=== PATIENT | female | born 1945 | race Caucasian/White ===

== ENCOUNTER 2021-12-17 15:12 | Outpatient (CLI) | payer MEDICARE, OTHER, SELFPAY ==
[2021-12-17 20:16] LABS: Blood Urea Nitrogen* 45 mg/dL (7-30); Carbon Dioxide* 23 mmol/L (20-32); Chloride* 105 mmol/L (96-114); Creatinine* 1.3 mg/dL (0.5-1.5); Estimated Glomerular Filt Rate 42.62; Glucose* 156 mg/dL (60-115); Potassium* 4.8 mmol/L (3.6-5.1); Sodium* 140 mmol/L (135-149)
[2021-12-17 20:17] LABS: Alanine Aminotransferase* 20 U/L (4-35); Albumin* 3.6 g/dL (3.3-5.0); Alkaline Phosphatase* 82 U/L (40-150); Aspartate Amino Transferase* 27 U/L (12-35); Bilirubin Total* 0.3 mg/dL (0.1-1.5); Calcium* 8.8 mg/dL (8.4-10.6); Lipase* 104 U/L (23-300); Total Protein* 6.4 g/dL (6.0-8.3)
[2021-12-18 19:12] LABS: Thyroid Stimulating Hormone* 0.165 uIU/mL (0.270-4.20)
== END 2021-12-17 15:13 | disposition home or self-care (01) ==
PROVIDERS: PCP Emergency Medicine; Visit Provider Emergency Medicine
DX: R10.9 Unspecified abdominal pain (principal); I12.9 Hypertensive chronic kidney disease with stage 1 through stage 4 chronic kidney disease, or unspecified chronic kidney disease; E11.22 Type 2 diabetes mellitus with diabetic chronic kidney disease; N18.9 Chronic kidney disease, unspecified; Z79.4 Long term (current) use of insulin; I25.10 Atherosclerotic heart disease of native coronary artery without angina pectoris; D64.9 Anemia, unspecified; E78.5 Hyperlipidemia, unspecified; E03.9 Hypothyroidism, unspecified
CPT/HCPCS: 80053; 83690; 84443

== ENCOUNTER 2022-01-15 10:43 | Outpatient (CLI) | payer MEDICARE, OTHER, SELFPAY ==
--- OUTSIDE RECORDS SUMMARY | 2022-01-15 10:46 | XMS_ITS ---
:1945 Author Organization [facility] Address [address], [place] [address] Care Team Providers Name Role Phone DURAN HDEZ Unavailable Unavailable PROBLEMS Type Condition ICD9-CM Code NKP61-YX Code Onset Condition SNO MED Code Dates Status Problem History of Z85.528 Active 014975067 kidney cancer ALLERGIES No Known Allergies ENCOUNTERS Encounter Location Date Diagnosis [address] Apr, [address] [facility] [id number] [address] Feb, [address] [facility] [place] [id number] [address] Feb, [place] [address] [facility] quadrant of left breast [id number] N63.21 ; Family history of breast cancer Z80.3 ; At high risk for breast cancer Z91.89 an d History of kidne y cancer Z85.[address] Feb, [address] [facility] [id number] [address] Jan, Abno rmal finding on [address] [place], [place] breast im aging R92.[id number] Sep, [address] [facility] [place] [id number] [address] Apr, Mass of left axilla [address] [place], [place] R22.32 ; Family history [id number] of breast cancer Z80.3 and At high risk for breast cancer Z9 1.89 [facility] [address] Apr, [address] [place], [place] [id number] [facility] [address] [place] [address] Mar, [address] screening Z12.31 [address] [place], [place] [id number] [facility] [address] Apr, [place] [address] [place], [place] quadrant of left breast [id number] N63.21 ; At high risk for breast cance r Z91.89 ; Family history of breast cancer Z8 0.3 and Dense breast tis eliecer on mammogram R92.2 [facility] [address] Sep, Abno rmal finding on [address] [place], [place] breast im aging R92.8 [id number] [facility] [address] Sep, Enco unter for preventive [address] [place], [place] care Z00. 00 [id number] [facility] [address] Sep, [address] [place], [place] [id number] [facility] [address] [place] [address] Jan, [facility] [address] screening Z12.31 [address] [place], [place] [id number] [facility] [address] [place], [place] [address] Jan, Abno rmal finding on [address] [place], [place] breast im aging R92.8 and [id number] Mass of upper ou ter quadrant of left breast N63.21 [facility] [address] Jan, Abno rmal finding on [address] [place], [place] breast im aging R92.8 [id number] [facility] [address] Jul, [address] screening Z12.31 [address] [place], [place] and Breas t mass, left [id number] N63.20 [facility] [address] Jul, Enco unter for preventive [address] [place], [place] care Z00. 00 [place] [id number] upper outer quad rant of left breast N63. 21 [facility] [address] Jul, [address] [place] [id number] [facility] [address] Jun[address] cancer screening [address] [place] Z12.31 [id number] [place] [address] Apr, [place] [address] [place] [address] Apr, [place] [address] [facility] [address] [place] [address] AVE Feb, [address] [place] [id number] [facility] [address] [place] [address] AVE Jul, [address] [facility] [place] [id number] [facility] [address] [place] [address] AVE Jun, [address] [place] [phone] [facility] [address] [place], [place] [address]AY AVE Jun, [address] [place] [phone] [facility] [address] [place] [address] AVE May, [address] [facility] [place] [id number] [facility] [address] [place] [address] AVE Apr, [address] [place] [id number] [facility] [address] [place] [address] AVE Apr, [address] [facility] [place] [phone] [place] [address] Apr, [place] [address] IMMUNIZATIONS Vaccine Route Administration Date Status Influenza (Whole) Unknown Apr 25, 2014 Administered PNEUMOCOCCAL IMMUNIZATION Unknown Apr 25, 2014 Admini stered SOCIAL HISTORY Qualifiers Date Never Smoker REASON FOR REFERRAL FUNCTIONAL STATUS PLAN OF CARE Activity Details Future Test MM 3D MAMM BILAT DIAG W CAD 20210717 Future Test MM 3D MAMM BILAT SCREENING W CAD 20210402 Pending Test US BREAST LTD TARGET AREA UN ILAT Pending Test US Extremity Non Vascular Li mited Pending Test MM DIGITAL BILATERAL DIAGNOS TIC MAMMOGRAM Pending Test US BREAST LTD TARGET AREA UN ILAT Pending Test MM CAD DIGITAL UNILATERAL DI AGNOSTIC MAMMOGRAM VITAL SIGNS Heart Rate 91 /min 2017-08-03 Heart Rate 84 /min 2016-07-22 Heart Rate 85 /min 2015-05-07 Heart Rate 89 /min 2014-04-25 Heart Rate 93 /min 2013-04-11 Weight 207 lbs 2018-09-27 Weight 207 lbs 2017-08-03 Weight 210 lbs 2016-07-22 Weight 210 lbs 2015-05-07 Weight 215 lbs 2014-04-25 Weight 214 lbs 2013-04-11 Height 66 in 2020-04-23 Height 66 in 2019-04-11 Height 66 in 2018-09-27 Height 66 in 2017-08-03 Height 67 in 2016-07-22 Height 67 in 2015-05-07 Height 67 in 2014-04-25 Height 67 in 2013-04-11 BMI 33.41 kg/m2 2018-09-27 BMI 33.41 kg/m2 2017-08-03 BMI 32.89 kg/m2 2016-07-22 BMI 32.89 kg/m2 2015-05-07 BMI 33.67 kg/m2 2014-04-25 BMI 33.59 kg/m2 2013-04-11 Blood pressure systolic 125 mm Hg 2017-08-03 Blood pressure diastolic 61 mm Hg 2017-08-03 MEDICATIONS Medication Instructions Dosage Frequency Start End Date Duration Stat us Date Levoxyl 150 MCG Oral Daily TAKE 1 24h Apr, 0 Activ e TABLET 2013 DAILY. Verapamil HCl Active Omeprazole 40 MG Oral Daily TAKE 1 24h 19 Apr, 0 Acti ve CAPSULE 2013 DAILY. HumaLOG KwikPen USE Feb, 0 Active 100 UNIT/ML DIRECTED. 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 Cytology Report 2021-02-07 REPORT Non-TOLL BRIDGE ATTENDANT Cytology Report 2020-04-23 REPORT MM 3D MAMM BILAT DIAG W CAD 2019-04-11 MM DIGITAL BILATERAL SCREENING MAMMOGRAM 2019-04 -23 MM DIGITAL UNILATERAL DIAGNOSTIC MAMMOGRAM -28 MM DIGITAL BILATERAL SCREENING MAMMOGRAM 2017-07 -27 MM DIGITAL UNILATERAL DIAGNOSTIC MAMMOGRAM -22 MM DIGITAL BILATERAL SCREENING MAMMOGRAM 2016-07 -15 MM DIGITAL BILATERAL SCREENING MAMM 2015-05-07 MM MAMMOGRAPHY UNILATERAL 2 VIEWS OR MORE 2013-06 1-19 MM DIGITAL BILATERAL SCREENING MAMM 2014-04-25 MM DIGITAL BILATERAL SCREENING MAMM 2013-04-11 REASON FOR VISIT 2 mo f/u, patient moved, Genetic testing results, giulia dx mm @ 8:30, Update [employer] Demographics, Mammogram order, 6 mo f/u left axilla, cancel appt, yr giulia screening (mm@10:30), Update [employer] Demographics, mammogram order, 6 m follow up mm x/d @ 2:10, wants genetic testing done, 6 m follow up mm x/d @ 1250, Mammogram order, yr giulia mammo x/d (mm @ 12:30), Update [employer] Demographics, yr giulia mammo x/d (mm @12:30), Mammogram Order, 6m lt mm@2:10, 6 m lt mammo x/d (mm @ 1:10), mammogram Order, Mammogram Order, yr giulia mammo x/d 2:30, Update [employer] Demographics, yr giulia mammo x/d 2:30, Mammo order, [facility], [facility], [facility] Insurance Providers [facility] Health Member Patient Patient Patient Patient Patient Subscriber Subscriber Subscriber Group Insurance Plan Plan Plan Plan ID Relationship Address Phone Name Date of ID Name Date of No Type Insurance Insurance Insurance Coverage to Subscriber Address Phone Name Dates WPS [phone] WPS self [place]IZABETH [id number] MEDICARE [id number] [address] PART B [facility] PART B [id number] WPS [phone] WPS self [place]IZABETH [id number] MEDICARE 8550 [address] PART B [facility] PART B [id number] [place] 3300 [phone] MUTUAL OF self [place] [id number] [place] [employer] [place] [address] [place] [facility] [address]
[2022-01-15 21:35] LABS: Chloride* 102 mmol/L (96-114); Potassium* 5.4 mmol/L (3.6-5.1); Sodium* 138 mmol/L (135-149)
[2022-01-15 21:38] LABS: Blood Urea Nitrogen* 54 mg/dL (7-30); Carbon Dioxide* 26 mmol/L (20-32); Creatinine* 1.4 mg/dL (0.5-1.5); Estimated Glomerular Filt Rate 39 ml/min
[2022-01-15 21:39] LABS: Calcium* 8.9 mg/dL (8.4-10.6); Glucose* 259 mg/dL (60-115)
[2022-01-15 22:09] LABS: TSH With Reflex to FT4* 0.424 uIU/mL (0.270-4.200)
== END 2022-01-15 10:44 | disposition home or self-care (01) ==
LOC: LKVREF 10:44
PROVIDERS: PCP Emergency Medicine; Visit Provider Emergency Medicine
DX: E03.9 Hypothyroidism, unspecified (principal); Z01.818 Encounter for other preprocedural examination
CPT/HCPCS: 80048; 84443

== ENCOUNTER 2022-01-23 09:05 | Outpatient (CLI) | payer MEDICARE, OTHER, SELFPAY ==
--- OUTSIDE RECORDS SUMMARY | 2022-01-23 09:07 | XMS_ITS ---
:1945 Author Organization [facility] Address [address] [place], [place] [address] Care Team Providers Name Role Phone DURAN HDEZ Unavailable Unavailable PROBLEMS Type Condition ICD9-CM Code DBJ01-EQ Code Onset Condition SNO MED Code Dates Status Problem History of Z85.528 Active [id number] kidney cancer ALLERGIES No Known Allergies ENCOUNTERS Encounter Location Date Diagnosis [address] Apr, [address] [facility] [id number] [address] Feb, [address] [facility] [id number] [address] Feb, [place] [address] [facility] [place] quadrant of left breast [id number] N63.21 ; Family history of breast cancer Z80.3 ; At high risk for breast cancer Z91.89 an d History of kidne y cancer Z85.[address] Feb, [address] [facility] [id number] [address] Jan, Abno rmal finding on [address] [place], [place] breast im aging R92.[id number] Sep, [address] [facility] [id number] [address] Apr, Mass of left axilla [address] [place], [place] R22.32 ; Family history 994812597 of breast cancer Z80.3 and At high risk for breast cancer Z9 1.89 [facility] [address] Apr, [address] [place], [place] [id number] [facility] [address] [place] [address], [address] screening Z12.31 [address] [place], [place] [id number] [facility] [address] Apr, [place] [address] [place], [place] quadrant of left breast [id number] N63.21 ; At high risk for breast cance r Z91.89 ; Family history of breast cancer Z8 0.3 and Dense breast tis eliecer on mammogram R92.2 [facility] [address] Sep, Abno rmal finding on [address] [place], [place] breast im aging R92.8 [id number] [facility] [address] Sep, Enco unter for preventive [address] [place], [place] care Z00. 00 [id number] [facility] [address] Sep, [address] [place] [id number] [facility] [address] [place] [address] Jan, [address] screening Z12.31 [address] [place], [place] [id number] [facility] [address] [place], [place] [address] Jan, Abno rmal finding on [address] [place], [place] breast im aging R92.8 and [id number] Mass of upper ou ter quadrant of left breast N63.21 [facility] [address] Jan, Abno rmal finding on [address] [place], [place] breast im aging R92.8 [id number] [facility] [address] Jul, [address] screening Z12.31 [address] [place], [place] and Breas t mass, left [id number] N63.20 [facility] [address] Jul, Enco unter for preventive [address] [place], [place] care Z00. 00 [place] [id number] upper outer quad rant of left breast N63. 21 [facility] [address] Jul, [address] [place] [id number] [facility] [address] Jun, [address] cancer screening [address] [place] Z12.31 [id number] [place] [address] Apr, [place] [id number] [place] [address] Apr, [place] [id number] [facility] [address] [place] [address] AVE Feb, [address] [place] [id number] [facility] [address] [place] [address] AVE Jul, [address] [facility] [place] [id number] [facility] [address] [place] [address] AVE Jun, [address] [place] [id number] [facility] [address] [place], [place] [address]AY AVE Jun, [address] [place] [id number] [facility] [address] [place] [address] AVE May, [address] [facility] [place] [place] [place] [id number] [facility] [address] [place] [address] AVE Apr, [address] [place] [id number] [facility] [address] [place] [address] AVE Apr, [address] [facility] [place] [id number] [place] [address] Apr, [place] [id number] IMMUNIZATIONS Vaccine Route Administration Date Status Influenza [...] 3D MAMM BILAT SCREENING W CAD 2020-04-23 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 Cytology Report 2021-02-07 REPORT 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 Cytology Report 2020-04-23 REPORT MM 3D MAMM [...] results, giulia dx mm @ 8:30, Update [employer] Demographics, Mammogram order, 6 mo f/u left [...] Mammo order, [facility], [facility], [facility] Insurance Providers [facility] Health Member Patient Patient Patient Patient Patient Subscriber Subscriber Subscriber Group Insurance Plan Plan Plan Plan ID Relationship Address Phone Name Date of ID Name Date of No Type Insurance Insurance Insurance Coverage to Subscriber Address Phone Name Dates WPS [phone] WPS self ELIZABETH [id number] MEDICARE [id number] [address] [facility] PART B [id number] WPS [phone] WPS self ELIZABETH [id number] MEDICARE 85[address] B [facility] PART B [id number] [place] 3300 [phone] MUTUAL OF self ELIZABETH [id number] YOMBA SHOSHONE MUTUAL OF 00 YOMBA SHOSHONE KD [facility] Accuri CytometersPHOENIX CHILDR[facility] [address]
--- NOTE | 2022-01-23 10:30 | W.ANESCHARGE ---
Anesthesia Charges Start Date/Time Anesthesia Start Date: 01/23/22 Anesthesia Start Time: 09:53 Stop Date/Time Anesthesia Stop Date: 01/23/22 Anesthesia Stop Time: 10:27 Summary Emergency: No Extremes of Age: Over 70-CPT [id number]
== END 2022-01-23 09:06 | disposition home or self-care (01) ==
LOC: OP CLINIC 09:05
PROVIDERS: PCP Emergency Medicine; Visit Provider Internal Medicine
DX: Z12.11 Encounter for screening for malignant neoplasm of colon (principal); K63.5 Polyp of colon; K64.8 Other hemorrhoids; K57.30 Diverticulosis of large intestine without perforation or abscess without bleeding; Z86.010 Personal history of colon polyps
CPT/HCPCS: 00731; 45380; 88305; 99100; J2704

== ENCOUNTER 2022-02-18 10:25 | Outpatient (CLI) | payer MEDICARE, OTHER, SELFPAY ==
--- OUTSIDE RECORDS SUMMARY | 2022-02-18 10:28 | XMS_ITS | Clinical Summary ---
:1945 Author Organization [facility] [place] [address] Care Team Providers Name Role Phone Vaishali Arreaga MD Primary Care Provider Allergies Active Allergy Reactions Severity Noted Date Comments Hydrocodone Shortness Of Breath High 12/31/2020 Medications Medication Sig Dispensed Refills Start Date End Date Status traMADoL (ULTRAM) 50 Take 0.5 Tablets 0.1 Tablet 0 12/31/2020 Active mg tabletIndications: (25 mg) by mouth Mitral valve at bedtime if insufficiency, needed for Pain. 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 capsuleIndications: HTN (hypertension) escitalopram oxalate Take 1 Tablet (5 0 10/13/2021 Active (LEXAPRO) 5 mg tablet mg) by mouth every morning. metoprolol succinate Take 1 Tablet 90 Tablet 3 10/13/2021 Active (TOPROL XL) 25 mg (25 mg) by mouth Sustained-Release once daily. tabletIndications: HTN (hypertension) Active Problems Problem Noted Date Coronary artery disease involving creek coronary klaudia ry of creek heart 12/06/2020 without angina pectoris Mitral valve insufficiency 12/06/2020 Mixed hyperlipidemia 12/06/2020 HTN (hypertension) 12/06/2020 Encounters Date Type Specialty Care Team Description 01/23/2022 Lab Requisition Tramaine Fox MD 01/09/2022 Office Visit Adam Love MD 01/08/2022 Travel from Last 3 Months Family History Medical History Relation Name Comments Heart Disease Brother CABG Coronary artery disease Father Relation Name Status Comments Brother Father Social History Tobacco Use Types Packs/Day Years Used Date Former Smoker Smokeless Tobacco: Never Used Comments: Quit about 9 years ago Alcohol Use Standard Drinks/Week Comments Never 0 (1 standard drink = 0.6 oz pure alcoho l) Alcohol Habits Answer Date Recorded How often do you have a drink containing alcohol? Never 10/13/2021 How many drinks containing alcohol do you have on a typical Not asked day when you are drinking? How often do you have six or more drinks on one occasion? No t asked Comment: Not asked Sex Assigned at Date Recorded Not on file Obstetrics History Last Filed Vital Signs Vital Sign Reading Time Taken Comments Blood Pressure 126/66 10/13/2021 11:28 AM CDT Pulse 76 10/13/2021 11:28 AM CDT Temperature - - Respiratory Rate - - Oxygen Saturation - - Inhaled Oxygen Concentration - - Weight 101 kg (222 lb 11.2 oz) 10/13/2021 11:28 AM with shoes CDT Height 168.9 cm (5' 6.5) 10/13/2021 12:26 PM CDT Body Mass Index 35.41 10/13/2021 11:28 AM CDT Plan of Treatment Health Maintenance Due Date Last Done Comments Pneumococcal series for age 65+ (1 - PCV) 12/03/1951 Tdap 1956 Depression screening for age 12+ 1957 BMI (ht and wt on same day) for age 18+ 12/03/1963 Hepatitis C screening for age 18-79 12/03/1963 Tetanus booster 1965 Zoster (shingles) series for age 50+ (1 of 2) 12/03/1995 DEXA/DXA scan for age 65+ 2010 Medicare Wellness for age 65+ 2010 COVID-19 vaccine series (2 - Moderna series) 05/24/2021 Influenza for age 65+ 02/05/2022 Procedures Procedure Name Priority Date/Time Associated Diagnosis Comme nts LAB TRACKING EVENT Routine 01/23/2022 10:20 AM CDT PATH TISSUE EXAM Routine 01/23/2022 10:20 AM Resu lts for this CDT procedure are i n the results section. from Last 3 Months Results LAB TRACKING EVENT (01/23/2022 10:20 AM CDT) Specimen Anatomical Collection Method Collection Time Receive d Time (Source) Location / / Volume Laterality Other (Other) Client Collect / 01/23/2022 10:20 2021 Unknown AM CDT 10:11 PM CDT Tramaine Fox MD LAB BILL ONLY Performing Organization Address City/State/ZIP Code Phon e Number [facility] [address] [place] [address] LABORATORY-CENTRAL 2000 LABORATORY PATH TISSUE EXAM (01/23/2022 10:20 AM CDT) Component Value Ref Test Analysis Performed At [facility] Range Method Time Signature Case Report Pathology Report ?Case: [id number] ? 01/26/2022 [facility] Authorizing Provider: ??Tramaine Elena MD ?Collected: ? 01/23/2022 1020 ? 8:42 AM CDT LABORAT ORY-CE Ordering Location: ? [facility] ?Received: ?01/24/2022 0540 ? NT RENAE Pathologist: ? Miguel Wong, ? LABORATORY ? MD ? Specimens: ?? A) - Ascending Colon Biopsy ? B) - Willis sverse Colon Biopsy ? Final A) COLON, ASCENDING, POLYP, BIOPSY: 01/06 [facility] Electronically Diagnosis 1. Tubular adenoma 8:42 AM CDT LABORATOR Y-CE signed by 2. Negative for high grade dysplasia NTRMARCE Beyer, B) COLON, TRANSVERSE, POLYP, BIOPSY: on 01/26/2022 1. Tubular adenoma a t 8:42 AM 2. Negative for high grade dysplasia Clinical Ms. Epps is 01/26/2022 [facility] Information a 76 y.o. 8:42 AM CDT LABORATORY-CE undergoing NTRAL colonoscopy. LABORATORY Gross A) Received in formalin are 2 palumbo mucosal fragments averaging 3 mm in greatest dimension, which are entirely submitted in one cassette. It is labeled with the patient's name and designated ascending polyps. 01/26/2022 [facility] Description 8:42 AM CDT LABORATORY-CE B) Received in formalin are 6 palumbo mucosal fragments averaging 2 mm in greatest dimension, which are entirely submitted in one cassette. It is labeled with the patient's name and designated transverse colon polyp. NTRAL LABORATORY Cherie Mendoza 01/24/2022 10:53 AM Microscopic The final 01/26/2022 [facility] Description diagnosis is 8:42 AM CDT LABORATORY-CE based on NTRAL microscopic LABORATORY examination of appropriate sections of all specimens. Additional 01/26/2022 [facility] Information Interpreted at [facility], Central Laboratory - [address] [place] [address] [address], [place] [address] 8:42 AM CDT LABORATORY-CE NTRAL LABORATORY Specimen Anatomical Collection Method Collection Time Receive d Time (Source) Location / / Volume Laterality Other (Ascending 01/23/2022 10:20 022 5:40 Colon Biopsy) AM CDT AM CDT Specimen 01/23/2022 10:20 01/24/2022 5:40 (specimen) AM CDT AM CDT (Transverse Colon Biopsy) Tramaine Fox MD PATHOLOGY/CYTOLOGY Performing Organization Address City/State/ZIP Code Phon e Number [facility] [address] [facility] [place] [address] LABORATORY-CENTRAL 2000 LABORATORY from Last 3 Months Insurance Payer Benefit Plan / Subscriber ID Effective Dates Phone Addre ss Type Group MEDICARE PART A MEDICARE PART A [id number] 2010-Present ATTN: CLAIMS - HB USE ONLY HB ONLY [address] [place] [address] MEDICARE PART B MEDICARE PART B [id number] 2010-Present ATTN: CLAIMS - HB USE ONLY HB ONLY [address] [place] [address] [employer] [place] [id number] 2020-Present 3 [address] [employer] [place] [address] MEDICARE - PB MEDICARE PB [id number] 2010-Present ATT N: CLAIMS USE ONLY ONLY [address] [place] [address] [address] (Home) [address] [place] [address] Care Teams 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
--- OUTSIDE RECORDS SUMMARY | 2022-02-18 10:28 | XMS_ITS ---
:1945 Author Organization [facility] Address [address] [place], [place] [address] Care Team Providers Name Role Phone DURAN HDEZ Unavailable Unavailable PROBLEMS Type Condition ICD9-CM Code [id number] Code Onset Condition SNO MED Code Dates Status Problem History of Z85.528 Active 905322373 kidney cancer ALLERGIES No Known Allergies ENCOUNTERS Encounter Location Date Diagnosis [address] Apr, [address] [facility] [id number] [address] Feb, [address] [facility] [place] [id number] [address] Feb, [place] [address] [facility] [place] quadrant of left breast [id number] N63.21 ; Family history of breast cancer Z80.3 ; At high risk for breast cancer Z91.89 an d History of kidne y cancer Z85.[address] Feb, [address] [facility] [id number] [address] Jan, Abno rmal finding on [address] [place], [place] breast im aging R92.[id number] Sep, [address] [facility] [place] [id number] [address] Apr, Mass of left axilla [address] [place] R22.32 ; Family history [id number] of breast cancer Z80.3 and At high risk for breast cancer Z9 1.89 [facility] [address] Apr, [address] [place], [place] [phone] [facility] [address] [place] [address], [address] screening Z12.31 [address] [place], [place] [id number] [facility] [address] Apr, [place] [address] [place], [place] quadrant of left breast [id number] N63.21 ; At high risk for breast cance r Z91.89 ; Family history of breast cancer Z8 0.3 and Dense breast tis eliecer on mammogram R92.2 [facility] [address] Sep, Abno rmal finding on [address] [place], [place] breast im aging R92.8 [id number] [facility] [address] Sep, Enco unter for preventive [address] [place], [place] care Z00. 00 [id number] [facility] [address] Sep, [address] [place], [place] [id number] [facility] [address] [place] [address] Jan, [address] screening Z12.31 [address] [place], [place] [id number] [facility] [address] [place], [place] [address] Jan, Abno rmal finding on [address] [place], [place] breast im aging R92.8 and [id number] [place] of upper ou ter quadrant of left breast N63.21 [facility] [address] Jan, Abno rmal finding on [address] [place], [place] breast im aging R92.8 [id number] [facility] [address] Jul, [address] screening Z12.31 [address] [place], [place] and Breas t mass, left [id number] N63.20 [facility] [address] Jul, Enco unter for preventive [address] [place], [place] care Z00. 00 [place] [id number] upper outer quad rant of left breast N63. 21 [facility] [address] Jul, [address] [place] [phone] [facility] [address] Jun, [address] cancer screening [address] [place] Z12.31 [id number] [place] [address] Apr, [place] [address] [place] [address] Apr, [place] [address] [facility] [address] [place] [address] AVE Feb, [address] [place] [phone] [facility] [address] [place] [address] AVE Jul, [address] [facility] [place] [id number] [facility] [address] [place] [address] AVE Jun, [address] [place] [id number] [facility] [address] [place], [place] [address]WAY AVE Jun, [address] [place] [phone] [facility] [address] [place] [address] AVE May, [address] [facility] [place] [phone] [facility] [address] [place] [address] AVE Apr, [address] [place] [phone] [facility] [address] [place] [address] AVE Apr, [address] [facility] [place] [phone] [place] [address] Apr, [place] [address] IMMUNIZATIONS Vaccine Route Administration Date Status Influenza [...] 3D MAMM BILAT SCREENING W CAD 2020-04-23 Non-TECHNICIAN AUTOMATIC Cytology Report 2021-02-07 REPORT Non-TECHNICIAN AUTOMATIC Cytology Report 2020-04-23 REPORT MM 3D MAMM [...] results, giulia dx mm @ 8:30, Update D square nvosk Demographics, Mammogram order, 6 mo f/u left [...] Mammo order, EMR-Barrington, EMR-[facility], EMR-[facility] Insurance Providers [facility] Member Patient Patient Patient Patient Patient Subscriber Subscriber Subscriber Group Insurance Plan Plan Plan Plan ID Relationship Address Phone Name Date of ID Name Date of No Type Insurance Insurance Insurance Coverage to Subscriber Address Phone Name Dates WPS [phone] WPS self ELIZABETH [id number] MEDICARE 8550 85 MEDICARE [place] PART B [facility] PART B [id number] [employer] [place] 3300 [phone] MUTUAL OF self [place]IZABETH [id number] [place] [employer]UAL OF 00 [employer] INSURANCE [employer] [address] W[phone] WPS self ELIZABETH [id number] MEDICARE 8550 85 MEDICARE [place] PART B [facility] PART B [id number]
--- OUTSIDE RECORDS SUMMARY | 2022-02-18 10:28 | XMS_ITS ---
:1945 Author Organization [facility] Address [address] [place], [place] [address] Care Team Providers Name Role Phone DURAN HDEZ Unavailable Unavailable PROBLEMS Type Condition ICD9-CM Code AIF19-MC Code Onset Condition SNO MED Code Dates Status Problem History of Z85.528 Active [id number] kidney cancer ALLERGIES No Known Allergies ENCOUNTERS Encounter Location Date Diagnosis [address] Apr, [address] [facility] [id number] [address] Feb, [address] [facility] [place] [id number] [address] Feb, [place] [address] [facility] [place] quadrant of left breast [id number] N63.21 ; Family history of breast cancer Z80.3 ; At high risk for breast cancer Z91.89 an d History of kidne y cancer Z85.[address] Feb, [address] [facility] [id number] [address] Jan, Abno rmal finding on [address] [place], [place] breast im aging R92.[id number] Sep, [address] [facility] [place] [id number] [address] Apr, [place] of left axilla [address] [place], [place] R22.32 ; Family history [id number] of breast cancer Z80.3 and At high risk for breast cancer Z9 1.89 [facility] [address] Apr, [address] [place], [place] [id number] [facility] [address] [place] [address], [address] screening Z12.31 [address] [place], [place] [id number] [facility] [address] Apr, [place] [address] [place] quadrant of left breast [id number] N63.21 ; At high risk for breast cance r Z91.89 ; Family history of breast cancer Z8 0.3 and Dense breast tis eliecer on mammogram R92.2 [facility] [address] Sep, Abno rmal finding on [address] [place], [place] breast im aging R92.8 [id number] [facility] [address] Sep, Enco unter for preventive [address] [place], [place] care Z00. 00 [id number] [facility] [address] Sep, [address] [place], [place] [id number] [facility] [address] [place] [address] Jan, [place] [address] screening Z12.31 [address] [place], [place] [phone] [facility] [address] [place], [place] [address] Jan, Abno rmal finding on [address] [place], [place] breast im aging R92.8 and [id number] [place] upper [place] quadrant of left breast N63.21 [facility] [address] Jan, Abno rmal finding on [address] [place], [place] breast im aging R92.8 [id number] [facility] [address] Jul, [address] screening Z12.31 [address] [place], [place] and Breas t mass, left [id number] N63.20 [facility] [address] Jul, Enco unter for preventive [address] [place], [place] care Z00. 00 [place] [id number] upper outer quad rant of left breast N63. 21 [facility] [address] Jul, [address] [place] [id number] [facility] [address] [facility] [address] Jun, [address] cancer screening [address] [place] Z12.31 [id number] [place] [address] Apr, [place] [address] [place] [address] Apr, [place] [address] [facility] [address] [place] [address] AVE Feb, [address] [place] [id number] [facility] [address] [place] [address] AVE Jul, [address] [facility] [place] [phone] [facility] [address] [place] [address] AVE Jun, [address] [place] [phone] [facility] [address] [place], [place] [address]W[address] A[address] Jun, [address] [place] [phone] [facility] [address] [place] [address] AVE May, [address] [facility] [place] [phone] [facility] [address] [place] [address] AVE Apr, [address] [place] [phone] [facility] [address] [place] [address] AVE Apr, [address] [facility] [place] [phone] [place] [address] Apr, [place] [address] IMMUNIZATIONS Vaccine Route Administration Date Status Influenza [...] W/US GDN 1ST LES Feb 07, 2021 FNA BX W/US GDN 1ST LES Apr 23, 2020 US EXTREMITY; LIMITED Apr 23, 2020 ULTRASOUND BREAST LIMITED Feb 07, 2021 ULTRASOUND BREAST LIMITED Feb 01, 2018 RESULTS Name Result Date Reference Range MM 3D MAMM BILAT DIAG W CAD 2021-02-07 MM 3D MAMM BILAT SCREENING W CAD 2020-04-23 Non-BALLISTIC TECHNICIAN Cytology Report 2021-02-07 REPORT Non-BALLISTIC TECHNICIAN Cytology Report 2020-04-23 REPORT MM 3D MAMM [...] results, giulia dx mm @ 8:30, Update Gigstarterosk Demographics, Mammogram order, 6 mo f/u left [...] Mammo order, EMR-[facility], EMR-[facility], EMR-[facility] Insurance Providers [facility] Member Patient Patient Patient Patient Patient Subscriber Subscriber Subscriber Group Insurance Plan Plan Plan Plan ID Relationship Address Phone Name Date of ID Name Date of No Type Insurance Insurance Insurance Coverage to Subscriber Address Phone Name Dates [employer] 3300 [phone] MUTUAL OF self [place]IZ[place]ETH [id number] [place] [employer] OF 00 [employer] [place] [address] WPS [phone] WPS self ELIZABETH [id number] MEDICARE 8550 [address] PART B [facility] PART B [id number] WPS [address] WPS self ELIZABETH [id number] MEDICARE 8550 85 MEDICARE [address] PART B [facility] PART B [id number]
--- NOTE | 2022-02-18 10:45 | CRLHL7_ITS ---
For Patients: As a result of the Century Cures Act, medical imaging exams and procedure reports are released immediately into your electronic medical record. You may view this report before your referring provider. If you have questions, please contact your health care provider. BILATERAL SCREENING MAMMOGRAM WITH COMPUTER-AIDED DETECTION AND TOMOSYNTHESIS TECHNIQUE: CC and MLO views were obtained. These mammographic images have been obtained using full-field digital technique. These mammographic images were interpreted with the benefit of computer-aided detection. Breast Tomosynthesis was used in this interpretation. COMPARISON FILM: [facility]: 04/11/2019, 09/27/2018, 02/01/2018. FINDINGS: There are scattered areas of fibroglandular density IMPRESSION: There is no radiographic evidence for malignancy. ASSESSMENT: BI-RADS Category 1: Negative RECOMMENDATION: Routine screening mammogram in 1 year. A lay language report of this examination will be provided to the patient. Ryan Pena M.D. Diagnostic Radiologist [email or web address] YOGI/Dictated by: Ryan Pena MD @ 02/18/2022 12:08:00 PM (Electronically Signed)
== END 2022-02-18 10:26 | disposition home or self-care (01) ==
LOC: MAMMO 10:26
PROVIDERS: PCP Emergency Medicine; Visit Provider Emergency Medicine
DX: Z12.31 Encounter for screening mammogram for malignant neoplasm of breast (principal)
CPT/HCPCS: 77063; 77067

== ENCOUNTER 2022-02-25 18:44 | Outpatient (REF) | payer MEDICARE, OTHER, SELFPAY ==
--- OUTSIDE RECORDS SUMMARY | 2022-02-25 18:47 | XMS_ITS | Clinical Summary ---
:1945 Author Organization [facility] [place] [address] Care Team Providers Name Role Phone Vaishali [...] Pain. 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 insufficiency, unspecified etiology, Coronary artery disease involving bad river band coronary artery of bad river [place] heart without angina pectoris traZODone (DESYREL) 50 Take 1 Tablet 0.1 Tablet 0 12/31/2020 Active mg tabletIndications: (50 mg) by mouth Mitral valve at bedtime. 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 [address] LABORATORY-CENTRAL 2000 LABORATORY PATH TISSUE EXAM (01/23/2022 10:20 AM CDT) Component Value Ref Test Analysis Performed At [facility] gist Range Method Time Signature Case Report Pathology Report ?Case: [id number] ? 01/26/2022 [facility] Authorizing Provider: ??Tramaine Elena MD ?Collected: ? 01/23/2022 1020 ? 8:42 AM CDT LABORAT ORY-CE Ordering Location: ? [facility] ?Received: ?01/24/2022 0540 ? NT RENAE Pathologist: ? Miguel Wong, ? LABORATORY ? MD ? Specimens: ?? A) - Ascending Colon Biopsy ? B) - Willis sverse Colon Biopsy ? Final A) COLON, ASCENDING, POLYP, BIOPSY: 01/06 [facility] Electronically Diagnosis 1. Tubular adenoma 8:42 AM CDT LABORATOR Y-CE signed by 2. Negative for high grade dysplasia NTRMARCE Beyer, B) COLON, TRANSVERSE, POLYP, BIOPSY: on 01/26/2022 1. Tubular adenoma a t 8:42 AM 2. Negative for high grade dysplasia Clinical Ms. Epps is 01/26/2022 [facility] Information a 76 y.o. 8:42 AM CDT LABORATORY-CE undergoing NTRAL colonoscopy. LABORATORY Gross A) Received in formalin are 2 palumbo mucosal fragments averaging 3 mm in greatest dimension, which are entirely submitted in one cassette. It is labeled with the patient's name and designated ascending polyps. 01/26/2022 [facility] Description 8:42 AM CDT LABORATORY-CE B) Received in formalin are 6 palumbo mucosal fragments averaging 2 mm in greatest dimension, which are entirely submitted in one cassette. It is labeled with the patient's name and designated transverse colon polyp. NTRAL LABORATORY Cherie Mendoza 01/24/2022 10:53 AM Microscopic The final 01/26/2022 [facility] Description diagnosis is 8:42 AM CDT LABORATORY-CE based on NTRAL microscopic LABORATORY examination of appropriate sections of all specimens. Additional 01/26/2022 [facility] Information Interpreted at [facility], Central Laboratory - [address] [place] [address] [address], [place] [address] 8:42 AM CDT LABORATORY-CE NTRAL LABORATORY Specimen Anatomical Collection Method Collection Time Receive d Time (Source) Location / / Volume Laterality Other (Ascending 01/23/2022 10:20 022 5:40 Colon Biopsy) AM CDT AM CDT Specimen 01/23/2022 10:20 01/24/2022 5:40 (specimen) AM CDT AM CDT (Transverse Colon Biopsy) Tramaine Fox MD PATHOLOGY/CYTOLOGY Performing Organization Address City/State/ZIP Code Phon e Number [facility] [address] [facility] [address] LABORATORY-CENTRAL 2000 LABORATORY from Last 3 Months Insurance Payer Benefit Plan / Subscriber ID Effective Dates Phone Addre ss Type Group MEDICARE PART A MEDICARE PART A [id number] 2010-Present ATTN: CLAIMS - HB USE ONLY HB ONLY [address] [place] [address] MEDICARE PART B MEDICARE PART B [id number] 2010-Present ATTN: CLAIMS - HB USE ONLY HB ONLY [address] [place] [address] [employer] [place] [employer] [place] [id number] 2020-Present 3 [address] [employer] [place] [facility] [place] [address] MEDICARE - PB MEDICARE PB [id number] 2010-Present ATT N: CLAIMS USE ONLY ONLY [address] [place] [address] [address] (Home) [address] [place] [address] Care Teams Student Life Vice President Relationship Specialty Start Date End Date Vaishali Arreaga MD PCP - General Emergency Medicine 12/05/201999 [place] [address]
[2022-02-25 21:18] LABS: Hemoglobin A1C* 8.05 % (0-5.6)
== END 2022-02-25 18:45 | disposition home or self-care (01) ==
LOC: NPINS 18:44
PROVIDERS: PCP Emergency Medicine
DX: E11.9 Type 2 diabetes mellitus without complications (principal)
CPT/HCPCS: 83036

== ENCOUNTER 2022-03-19 10:42 | Outpatient (RCR) | payer MEDICARE, OTHER, SELFPAY | END 2022-09-15 23:59 | disposition home or self-care (01) | LOC: CCIC 10:42 | PROVIDERS: PCP Emergency Medicine; Visit Provider Nurse Practitioner Family | DX: Z91.89 Other specified personal risk factors, not elsewhere classified (principal) | CPT/HCPCS: 99202; 99204 ==

== ENCOUNTER 2022-03-23 14:14 | Outpatient (REF) | payer MEDICARE, OTHER, SELFPAY ==
--- OUTSIDE RECORDS SUMMARY | 2022-03-23 14:17 | XMS_ITS | Clinical Summary ---
:1945 Author Organization [facility] [place] [address] Care Team Providers Name Role Phone Vaishali [...] Pain. unspecified etiology, Coronary artery disease involving lower sioux coronary artery of lower sioux heart without angina pectoris cimetidine (TAGAMET) Take 1 Tablet 0.1 Tablet 0 12/31/2020 Active 200 mg (200 mg) by tabletIndications: mouth at Mitral valve bedtime. insufficiency, unspecified etiology, Coronary artery disease involving lower sioux coronary artery of lower sioux heart without angina pectoris traZODone (DESYREL) 50 Take 1 Tablet 0.1 Tablet 0 12/31/2020 Active mg tabletIndications: (50 mg) by mouth Mitral valve at bedtime. insufficiency, unspecified etiology, Coronary artery disease involving lower sioux coronary artery of lower sioux heart without angina pectoris atorvastatin (Lipitor) Take 1 Tablet 0.1 Tablet 0 12/31/2020 Active 40 mg (40 mg) by mouth tabletIndications: at bedtime. Mitral valve insufficiency, unspecified etiology, Coronary artery disease involving lower sioux coronary artery of lower sioux heart without angina pectoris, Mixed hyperlipidemia enalapril-hydrochlorot Take 1 Tablet by 0.1 Tablet 0 07/27/202 1 Active hiazide, 10-25 mg, mouth once (VASERETIC) 10-25 mg daily. tabletIndications: HTN (hypertension), Mitral valve insufficiency, unspecified etiology, Coronary artery disease involving lower sioux coronary artery of lower sioux heart without angina pectoris omeprazole (PRILOSEC) Take 1 Capsule 0.1 Capsule 0 12/31/2020 Active 40 mg Delayed-Release (40 mg) by mouth capsuleIndications: once daily if Mitral valve needed for GI insufficiency, Upset. unspecified etiology, Coronary artery disease involving lower sioux coronary artery of lower sioux heart without angina pectoris levothyroxine Take 1 Tablet 0.1 Tablet 0 12/31/2020 Active (SYNTHROID) 150 mcg (150 mcg) by tabletIndications: mouth before Mitral valve breakfast. insufficiency, unspecified etiology, Coronary artery disease involving lower sioux coronary artery of lower sioux heart without angina pectoris aspirin (ECOTRIN) 81 Take 1 Tablet 0.1 Tablet 0 12/31/2020 Active mg enteric coated (81 mg) by mouth tabletIndications: once daily with Mitral valve a meal. insufficiency, unspecified etiology, Coronary artery disease involving lower sioux coronary artery of lower sioux heart without angina pectoris insulin lispro As directed 0.1 mL 0 12/31/2020 Ac tive (HUMALOG) 100 unit/mL three times cartridgeIndications: daily with meals Mitral valve insufficiency, unspecified etiology, Coronary artery disease involving lower sioux coronary artery of lower sioux heart without angina pectoris clopidogreL (PLAVIX) Take 1 Tablet 90 Tablet 2 06/03/2021 Active 75 mg (75 mg) by mouth tabletIndications: once daily. Mitral valve insufficiency, unspecified etiology, Coronary artery disease involving lower sioux coronary artery of lower sioux heart without angina pectoris verapamiL (VERELAN) Take [...] Problem Noted Date Coronary artery disease involving lower sioux coronary klaudia ry of lower sioux heart 12/06/2020 without angina pectoris Mitral valve [...] Organization Address City/State/ZIP Code Phon e Number [facility] [address] [place] [address] LABORATORY-CENTRAL 2000 LABORATORY PATH TISSUE EXAM (01/23/2022 10:20 AM CDT) Component Value Ref Test Analysis Performed At [facility] gist Range Method Time Signature Case Report Pathology Report ?Case: [id number] ? 01/26/2022 [facility] Authorizing Provider: ??Tramaine Elena MD ?Collected: ? 01/23/2022 1020 ? 8:42 AM CDT LABORAT ORY-CE Ordering Location: ? [facility] C[facility]TR[facility] LAB ?Received: ?01/24/2022 0540 ? NT RENAE Pathologist: ? Miguel Wong, ? LABORATORY ? MD ? Specimens: ?? A) - Ascending Colon Biopsy ? B) - Willis sverse Colon Biopsy ? Final A) COLON, ASCENDING, POLYP, BIOPSY: 01/06 [facility] Electronically Diagnosis 1. Tubular adenoma 8:42 AM CDT LABORATOR Y-CE signed by 2. Negative for high grade dysplasia NTRMARCE Beyer, B) COLON, TRANSVERSE, POLYP, BIOPSY: on 01/26/2022 1. Tubular adenoma a t 8:42 AM 2. Negative for high grade dysplasia Clinical Ms. Epps is 01/26/2022 [facility] Information a 76 y.o. 8:42 AM CDT LABORATORY-CE undergoing NTRAL colonoscopy. LABORATORY Gross A) Received in formalin are 2 palumbo mucosal fragments averaging 3 mm in greatest dimension, which are entirely submitted in one cassette. It is labeled with the patient's name and designated ascending polyps. 01/26/2022 [facility] Description 8:42 AM CDT LABORATORY-CE B) Received in formalin are 6 palumbo mucosal fragments averaging 2 mm in greatest dimension, which are entirely submitted in one cassette. It is labeled with the patient's name and designated transverse colon polyp. NTRAL LABORATORY Cherie Mendoza 01/24/2022 10:53 AM Microscopic The final 01/26/2022 [facility] Description diagnosis is 8:42 AM CDT LABORATORY-CE based on NTRAL microscopic LABORATORY examination of appropriate sections of all specimens. Additional 01/26/2022 [facility] Information Interpreted at [facility], Central Laboratory - [address] [place] [address] [address], [place] [address] 8:42 AM CDT LABORATORY-CE NTRAL LABORATORY Specimen Anatomical Collection Method Collection Time Receive d Time (Source) Location / / Volume Laterality Other (Ascending 01/23/2022 10:20 022 5:40 Colon Biopsy) AM CDT AM CDT Specimen 01/23/2022 10:20 01/24/2022 5:40 (specimen) AM CDT AM CDT (Transverse Colon Biopsy) Tramaine Fox MD PATHOLOGY/CYTOLOGY Performing Organization Address City/State/ZIP Code Phon e Number [facility] [address] [facility] [address] LABORATORY-CENTRAL 2000 LABORATORY from Last 3 Months Insurance Payer Benefit Plan / Subscriber ID Effective Dates Phone Addre ss Type Group MEDICARE PART A MEDICARE PART A [id number] 2010-Present ATTN: CLAIMS - HB USE ONLY HB ONLY [address] [place] [address] MEDICARE PART B MEDICARE PART B [id number] 2010-Present ATTN: CLAIMS - HB USE ONLY HB ONLY [address] [place] [address] [employer] [id number] 2020-Present [address] [employer] [place] [address] MEDICARE - PB MEDICARE PB [id number] 2010-Present ATT N: CLAIMS USE ONLY ONLY [address] [place] [address] [phone] (Home) [address] [place] [address] Care Teams Shipping Lead Person Relationship Specialty Start Date End Date Vaishali Arreaga MD PCP - General Emergency Medicine 12/05/201999 [place] [address]
[2022-03-23 15:26] LABS: Appearance Urine Slightly Cloudy (Clear); Bilirubin Urine Negative (Negative); Blood Urine Trace-intact (Negative); Color Urine Yellow (Yellow); Glucose Urine Negative (Negative); Ketones Urine Trace (Negative); Leukocyte Esterase Urine Negative (Negative); Nitrite Urine Negative (Negative); Protein Urine 2+ (Negative); Specific Gravity Urine 1.025 (1.000-1.030); Urobilinogen Urine 0.2 (0.2-1.0); pH Urine 5.5 (5.0-8.5)
[2022-03-23 16:12] LABS: Bacteria Urine Moderate; RBC Urine 0-2 (0-2); Squamous Epithelial Cell Urine Moderate (None-Few)
== END 2022-03-23 14:15 | disposition home or self-care (01) ==
LOC: NPINS 14:14
PROVIDERS: PCP Emergency Medicine; Visit Provider Urology
DX: R35.0 Frequency of micturition (principal)
CPT/HCPCS: 81003; 81015; 87086; 87186

== ENCOUNTER 2022-04-23 11:35 | Outpatient (CLI) | payer MEDICARE, OTHER, SELFPAY ==
[2022-04-23 22:06] LABS: Chloride* 105 mmol/L (96-114); Sodium* 141 mmol/L (135-149)
[2022-04-23 22:08] LABS: Creatinine* 1.4 mg/dL (0.5-1.5); Estimated Glomerular Filt Rate 39 ml/min
[2022-04-23 22:09] LABS: Blood Urea Nitrogen* 42 mg/dL (7-30); Carbon Dioxide* 27 mmol/L (20-32); Glucose* 106 mg/dL (60-115)
[2022-04-23 22:28] LABS: TSH With Reflex to FT4* 0.605 uIU/mL (0.270-4.200)
[2022-04-23 22:52] LABS: Vitamin B12* 273 pg/mL (243-894)
== END 2022-04-23 11:36 | disposition home or self-care (01) ==
PROVIDERS: PCP Emergency Medicine; Visit Provider Emergency Medicine
DX: Z00.00 Encounter for general adult medical examination without abnormal findings (principal); E11.9 Type 2 diabetes mellitus without complications; I10 Essential (primary) hypertension; K21.9 Gastro-esophageal reflux disease without esophagitis; Z79.4 Long term (current) use of insulin
CPT/HCPCS: 80048; 82607; 84443

== ENCOUNTER 2022-06-30 21:58 | Outpatient (REF) | payer MEDICARE, OTHER, SELFPAY ==
[2022-07-01 04:06] LABS: Hemoglobin A1C* 8.06 % (0-5.6)
== END 2022-06-30 21:59 | disposition home or self-care (01) ==
LOC: NPINS 21:58
PROVIDERS: PCP Emergency Medicine
DX: E11.65 Type 2 diabetes mellitus with hyperglycemia (principal)
CPT/HCPCS: 83036

== ENCOUNTER 2022-09-27 11:00 | Outpatient (CLI) | payer MEDICARE, OTHER, SELFPAY | END 2022-09-27 11:01 | disposition home or self-care (01) | LOC: NFLDREF 09-28 21:59 | PROVIDERS: PCP Emergency Medicine; Referring Provider Emergency Medicine; Visit Provider Nurse Practitioner Family | DX: R35.89 Other polyuria (principal); N30.91 Cystitis, unspecified with hematuria | CPT/HCPCS: 87086; 87186 ==

== ENCOUNTER 2022-11-26 13:44 | Outpatient (CLI) | payer MEDICARE, OTHER, SELFPAY | END 2022-11-26 13:45 | disposition home or self-care (01) | LOC: LKVREF 13:46 | PROVIDERS: PCP Emergency Medicine; Visit Provider Emergency Medicine | DX: I10 Essential (primary) hypertension (principal); D64.9 Anemia, unspecified | CPT/HCPCS: 80048 ==

== ENCOUNTER 2023-02-10 13:47 | Outpatient (CLI) | payer MEDICARE, OTHER, SELFPAY | END 2023-02-10 13:48 | disposition home or self-care (01) | LOC: LKVREF 13:49 | PROVIDERS: PCP Emergency Medicine; Visit Provider Emergency Medicine | DX: N18.9 Chronic kidney disease, unspecified (principal); E11.9 Type 2 diabetes mellitus without complications; I10 Essential (primary) hypertension; E78.5 Hyperlipidemia, unspecified; D50.9 Iron deficiency anemia, unspecified; Z79.4 Long term (current) use of insulin | CPT/HCPCS: 82043; 82570 ==

== ENCOUNTER 2023-05-12 06:17 | Day surgery (SDC) | payer MEDICARE, OTHER, SELFPAY ==
[2023-05-12] VITALS (10 sets, daily range): BP systolic 145–197; BP diastolic 70–95; PULSE 66–73; RESP 12–16; TEMP 36.1–36.3; O2SAT 91–97
[2023-05-12] MEDS: ETHYL CHLORIDE 1 APPLICATION 1 APPLIC TOPICAL (07:00)
[2023-05-12] MEDS: BUPIVACAINE 0.5% 30 ML INJECTION (07:00)
--- NOTE | 2023-05-12 07:27 | SUR.PREOP ---
SAME DAY SURGERY LOCAL INJECTION SITE VERIFICATION WAS PERFORMED BY SURGEON/PA AND PATIENT PRIOR TO LOCAL ANESTHETIC BEING INJECTED TO OPERATIVE SITE.
[2023-05-12] MEDS: LIDOCAINE 2%-EPI 1:200,000 20 ML 5 ML TOPICAL (07:31)
[2023-05-12] MEDS: NEOMYCIN/BACITRACIN/POLYMYXIN B 1 APPLIC TOPICAL (07:51)
--- NOTE | 2023-05-12 07:51 | P.ORPRC_ITS ---
Procedure Note Date of procedure: 05/12/23 Procedure: PREOPERATIVE DIAGNOSIS: 1. Right carpal tunnel syndrome 2. Right trigger finger-flexor tenosynovitis (index and long fingers) POSTOPERATIVE DIAGNOSIS: 1. Right carpal tunnel syndrome 2. Right trigger finger-flexor tenosynovitis (index and long fingers) PROCEDURE: 1. Right open carpal tunnel release 2. Right trigger finger release (A1 vangie) of index finger and long finger SURGEON: Dong Dyer MD. PROFESSIONAL BUILDER: Hermelindo Tay PA-C ANESTHESIA: Local anesthetic (50:50 mixture of 2 % lidocaine with epi and 0.5% marcaine plain) - 10ml total IMPLANTS: None EBL: 2 mL TOURNIQUET: None COMPLICATIONS: None evident INDICATIONS: The patient is a pleasant 77-year-old female who has experienced right hand numbess/tingling affecting the radial 3.5 digits for multiple months. It has progressively gotten worse. In addition, she has also experience catching/locking of the right index and long fingers. This is progressively getting worse. It is affecting her daily life. Nonoperative management has been tried and failed, and therefore surgery was recommended. DESCRIPTION OF PROCEDURE: Following a thorough discussion of risks, benefits, and alternatives consent was obtained and the operative extremity was marked. The patient was brought to the operating room and placed supine on the operating table. Local anesthesia induction was undertaken in preop holding. No antibiotics were administered as this was planned to be a local case only. Proper time-out was performed identifying proper patient, site, and procedure. The operative extremity was prepped and draped in the appropriate sterile fashion using ChloraPrep. An incision was made in line with the radial border of the ring finger beginning 1 cm distal to the distal wrist crease and progressing for another 2.5cm distal. Caution was taken to stay proximal to Blanchard's cardinal line. Sharp incision through the skin, subcutaneous tissue, and palmar fascia was performed. The thenar musculature was bluntly elevated off the transverse carpal ligament. The ligament was directly visualized, and divided sharply with a 15 blade. This was released from its most proximal to the most distal extent. Metzenbaum scissor was also utilized to release the fascia extension proximally. We confirmed complete release of the transverse carpal ligament. Following this, the 2 trigger fingers were then released. A incision was made on the palmar surface of the hand overlying the MCP joint region of the appropriate digit(s) respecting the palmar creases being cautious not to cross these perpendicularly. Sharp incision through the skin, and blunt dissection through subcutaneous tissue allowing protection of crossing neurologic structures. The A1 vangie was visualized directly. It was incised sharply with a 15 blade. It was released completely from its distal to proximal extent under direct visualization. The tendon was inspected and found to be mildly striated consistent with some friction. Otherwise, it was intact. The tendon was removed out of the wound, and further inspected. The patient was asked to manually flex and extend the digits and showed no further catching. The catching, which was visualized initially, was no longer evident with reproduction of a manual fist and relaxation. Closure was performed with 4-O nylon in interrupted fashion. Soft dressings were applied, and the patient was transferred to the recovery room in stable condition. PLAN: 1. Encourage elevation of the operative extremity. 2. Range of motion of the fingers and hand/wrist as tolerated. 3. Ibuprofen/acetaminophen and/or Percocet as needed for pain control. 4. Follow up with PA visit or nurse visit in 12-16 days for wound check and suture removal.
== END 2023-05-12 07:27 | disposition home or self-care (01) ==
PROVIDERS: PCP Emergency Medicine; Visit Provider Orthopaedic Surgery Sports Medicine
PROC: (CPT 64721; principal; 2023-05-12 07:15)
PROC: (CPT 26055; 2023-05-12 07:15)
DX: G56.01 Carpal tunnel syndrome, right upper limb (principal); M65.331 Trigger finger, right middle finger; M65.321 Trigger finger, right index finger; M65.841 Other synovitis and tenosynovitis, right hand
CPT/HCPCS: 64721; 26055 ×2; J0665

== ENCOUNTER 2023-06-04 13:00 | Outpatient (CLI) | payer MEDICARE, OTHER, SELFPAY ==
--- NOTE | 2023-06-04 13:20 | CRLHL7_ITS ---
For Patients: As a result of the Cures Act, medical imaging exams and procedure reports are released immediately into your electronic medical record. You may view this report before your referring provider. If you have questions, please contact your health care provider. BILATERAL SCREENING MAMMOGRAM WITH COMPUTER-AIDED DETECTION AND TOMOSYNTHESIS TECHNIQUE: CC and MLO views were obtained. These mammographic images have been obtained using full-field digital technique. These mammographic images were interpreted with the benefit of computer-aided detection. Breast Tomosynthesis was used in this interpretation. COMPARISON FILM: 02/18/22, 09/27/18, 08/03/17. FINDINGS: There are scattered areas of fibroglandular density IMPRESSION: There is no radiographic evidence for malignancy. ASSESSMENT: BI-RADS Category 1: Negative RECOMMENDATION: Routine screening mammogram in 1 year. A lay language report of this examination will be provided to the patient. Ryan Pena M.D. Diagnostic Radiologist [email or web address]/mario Transcribed: 4:39 p.mJett martin/Dictated by: Ryan Pena MD @ 06/08/2023 8:46:00 AM (Electronically Signed)
== END 2023-06-04 13:01 | disposition home or self-care (01) ==
LOC: MAMMO 13:01
PROVIDERS: PCP Emergency Medicine; Visit Provider Emergency Medicine
DX: Z12.31 Encounter for screening mammogram for malignant neoplasm of breast (principal)
CPT/HCPCS: 77063; 77067

== ENCOUNTER 2023-07-01 08:41 | Outpatient (CLI) | payer MEDICARE, OTHER, SELFPAY ==
--- OUTSIDE RECORDS SUMMARY | 2023-07-01 08:45 | XMS_ITS | Clinical Summary ---
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 0.1 Tablet 0 12/31/2020 Active escitalopram oxalate (LEXAPRO) 5 mg tablet Take 1 Tablet (5 mg) by mouth every morning. 0 10/13/2021 Active metoprolol succinate (TOPROL XL) 25 mg Sustained-Release tabletIndications:HTN (hypertension) Take 1 Tablet (25 mg) by mouth once daily. 90 Tablet 3 10/13/2021 Active insulin lispro protamine-lispro, 50-50, (HumaLOG Mix 50-50 KwikPen) 100 unit/mL (50-50) inpn penIndications:Type 2 diabetes mellitus with other diabetic kidney complication, with long-term current use of insulin (HC) Inject subcutaneous. Takes 50 with breakfast, 30 with lunch and 50 with dinner. 0 10/28/2022 Active amLODIPine (Norvasc) 5 mg tabletIndications:HTN (hypertension) Take 1 Tablet (5 mg) by mouth once daily. 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 12/06/2020 Mitral valve insufficiency 12/06/2020 Mixed hyperlipidemia 12/06/2020 HTN (hypertension) 12/06/2020 Immunizations Name Administration Dates Next Due COVID-19 vaccine (Moderna 100mcg/0.5mL) PF, MDV 04/26/2021,07/24/2020 Influenza, High-dose Quadrivalent Inactivated ,04/17/2021 Pneumococcal Poly,23-Valent (Pneumovax) 09/24/19 12 Pneumococcal conj 13-Valent (Prevnar 13) 017 Tdap 09/17/2011 Zoster (Shingrix-RZV, recombinant) 04/09/2020, Zoster (Zostavax-ZVL, live) 10/12/2014 Family History Medical History Relation Name Comments Heart Disease Brother CABG Coronary artery disease Father Relation Name Status Comments Brother Father Social History Tobacco Use Types Packs/Day Years Used Date Smoking Tobacco: Former Smokeless Tobacco: Never Comments:Quit about 9 years ago Alcohol Use Standard Drinks/Week Comments Never 0 (1 standard drink = 0.6 oz pur e alcohol) Social Connections Answer Date Recorded Frequency of Communication with Friends and Fami ly Not on file 06/03/2021 Financial Resource Strain Answer Date R ecorded Difficulty of Paying Living Expenses Not on file 06/03/2021 Difficulty of Paying Living Expenses Not on file 06/03/2021 Sex and Gender Information Value Date Recorded Sex Assigned at Not on file Gender Identity Not on file Sexual Orientation Not on file Obstetrics History Last Filed Vital Signs Vital Sign Reading Time Taken Comments Blood Pressure 136/60 09/29/2022 11:05 AM CDT Pulse 68 09/29/2022 11:05 AM CDT Temperature - - Respiratory Rate - - Oxygen Saturation - - Inhaled Oxygen Concentration - - Weight 99.3 kg (218 lb 14.4 oz) 023 11:05 AM CDT Height 168.9 cm (5' 6.5) 10/13/2021 12 :26 PM CDT Body Mass Index 34.8 10/13/2021 12:26 PM CDT Plan of Treatment Health Maintenance Due Date Last Done Comments Depression screening for age 12+ 1957 BMI (ht and wt on same day) for age 18+ 12/03/1963 Hepatitis C screening for age 18-79 12/03/1963 DEXA/DXA scan for age 65+ 2010 Medicare Wellness for age 65+ 2010 Tetanus booster 09/16/2021 09/17/2011 COVID-19 vaccine series ( season) 2023 03/31/2022, 04/26/2021, 07/24/2020 Influenza for age 65+ 02/05/2023 03/31/2022, 021 Tdap Completed 09/17/2011 Pneumococcal series for age 65+ Completed 7, 09/24/2011 Zoster (shingles) series for age 50+ Completed 04/09/2020, 01/26/2020, 10/12/2014 Care Teams Hole Digger Truck Driver Relationship Specialty Start Date End Date Vaishali Arreaga MD [address] [place] [address] PCP - General Emergency Medicine 12/05/20
--- OUTSIDE RECORDS SUMMARY | 2023-07-01 08:45 | XMS_ITS | Encounter Summary ---
Author Name Unknown Organization [place] Address [address] [place] [address] Care Team Providers Care Training Specialist Name Role Phone [facility] Primary Care Pro vider Encounter Details Date Type Department Care Team (Latest Contact Info) Description 12/31/2022 Travel Social History Tobacco Use Types Packs/Day Years Used Date Smoking Tobacco: Never Assessed Sex and Gender Information Value Date Recorded Sex Assigned at Not on file Gender Identity Not on file Sexual Orientation Not on file COVID-19 Exposure Response Date Recorded In the last 10 days, have yo u been in contact with someone who was confirmed or suspected to have Coronavirus/COVID-19? No / Unsure 12/31/2022 10:42 AM CDT documented as of this encounter Plan of Treatment Not on file documented as of this encounter Visit Diagnoses Not on filedocumented in this encounter Care Teams Training Specialist Relationship Specialty Start Date End Date [facility] [address] [place] [address] PCP - General 12/31/22 documented as of this encounter
--- OUTSIDE RECORDS SUMMARY | 2023-07-01 08:45 | XMS_ITS | Clinical Summary ---
Author Name Unknown Organization [place] Address [address] [place] [address] Care Team Providers Care Tank House Operator Helper Name Role Phone [facility] [place] [facility] Pro vider Allergies No known active allergies Medications No known medications Social History Tobacco Use Types Packs/Day Years Used Date Smoking Tobacco: Never Assessed Adolescent Education Answer Date Record ed Getting School Help Needed Not on file 02/27 Sex and Gender Information Value Date Recorded Sex Assigned at Not on file Gender Identity Not on file Sexual Orientation Not on file Last Filed Vital Signs Vital Sign Reading Time Taken Comments Blood Pressure 168/72 12/31/2022 1:00 PM CDT Pulse 70 12/31/2022 1:00 PM CDT Temperature 36.8 ??C (98.2 ??F) 12/31/2022 10:53 AM C DT Respiratory Rate 18 12/31/2022 12:12 PM CDT Oxygen Saturation 95% 12/31/2022 12:12 PM CDT Inhaled Oxygen Concentration - - Weight 122.5 kg (270 lb) 12/31/2022 10:53 AM CDT Height - - Body Mass Index - - Plan of Treatment Health Maintenance Due Date Last Done Comments ADVANCE CARE PLANNING 1945 ANNUAL REVIEW OF HM ORDERS 1945 DEXA 1945 HEPATITIS C SCREENING 12/03/1963 LIPID 1990 RSV VACCINE ( & 60+ ) (1 - 1-dose 60+ series) 2005 FALL RISK ASSESSMENT 2010 MEDICARE ANNUAL WELLNESS VISIT 2010 DTAP/TDAP/TD IMMUNIZATION (2 - Td or Tdap) 09/16/2021 09/17/2011 COVID-19 Vaccine (3 - 2022-2 4 season) 2023 04/26/2021, 07/24/2020 INFLUENZA VACCINE (#1) 2023 2, 04/17/2021 PHQ-2 (once per calendar year) 2023 Pneumococcal Vaccine: 65+ Years Completed 04/06/2017, 09/24/2011 ZOSTER IMMUNIZATION Completed 04/09/2020, 01/26/2020, 10/12/2014 HPV IMMUNIZATION Aged Out No longer e ligible based on patient's age to complete this topic IPV IMMUNIZATION Aged Out No longer e ligible based on patient's age to complete this topic MENINGITIS IMMUNIZATION Aged Out No l onger eligible based on patient's age to complete this topic RSV MONOCLONAL ANTIBODY Aged Out No l onger eligible based on patient's age to complete this topic Care Teams Tank House Operator Helper Relationship Specialty Start Date End Date [facility] [address] [place] [address] PCP - General 12/31/22
--- OUTSIDE RECORDS SUMMARY | 2023-07-01 08:45 | XMS_ITS | Referral Summary ---
Author Name Unknown Organization [place] Address [address] [place] [address] Care Team Providers Care Honing Machine Set Up Operator Name Role Phone [facility] [place] [facility] Pro vider Allergies No known [...] Mass Index - - Plan of Treatment Not on file Care Teams Honing Machine Set Up Operator Relationship Specialty Start Date End Date [facility] [address] [place] [address] PCP - General 12/31/22
--- OUTSIDE RECORDS SUMMARY | 2023-07-01 08:46 | XMS_ITS | Encounter Summary ---
Author Name Unknown Organization [facility] Address [address] [place] [id number] Care Team Providers Care Belling Machine Operator Name Role Phone [facility] Reason for Visit * Reason Comments Gait Problem Encounter Details Date Type Department Care Team (Late st Contact Info) Description 12/31/2022 10:56 AM CDT - 12/31/2022 6:39 PM CDT Emergency [facility] Emergency Dept [address] [place] [id number] [phone] Norm Willis MD [address] [address] Ron Menchaca MD [facility] [address], [address] [address] Dizziness Discharge Disposition: Home or Self Care Social History Tobacco Use Types Packs/Day Years [...] AM CDT documented as of this encounter Last Filed Vital Signs Vital Sign Reading [...] - - Body Mass Index - - documented in this encounter Discharge Instructions * Discharge Instructions* Ron Menchaca MD - 12/31/2022 6:10 PM CDT Discharge Instructions Dizziness (Lightheaded) Today you were seen for dizziness. Dizziness can be caused by many things and it can be very difficult to determine the cause of dizziness. At this time, your provider has found no signs that your dizziness is due to a serious or life- threatening condition. However, sometimes there is a serious problem that does not show up right away, and it is important for you to follow up with your regular provider as instructed. Generally, every Emergency Department visit should have a follow-up clinic visit with either a primary or a specialty clinic/provider. Please follow-up as instructed by your emergency provider today. Return to the Emergency Department if: You pass out (fainting or falling out), especially during exercise. You develop chest pain, chest pressure or difficulty breathing. Your feel an irregular heartbeat. You have excessive vaginal bleeding, or blood in your stool or vomit (throw up). You have a high fever. Your symptoms get worse or more frequent. If when you begin to feel dizzy or lightheaded, it is important to sit down or lay down immediatelyto prevent injury from falling. If you were given a prescription for medicine here today, be sure to read all of the information (including the package insert) that comes with your prescription. This will include important information about the medicine, its side effects, and any warnings that you need to know about. The pharmacist who fills the prescription can provide more information and answer questions you may have about the medicine. If you have questions or concerns that the pharmacist cannot address, please call or return to the Emergency Department. Remember that you can always come back to the Emergency Department if you are not able to see your regular provider in the amount of time listed above, if you get any new symptoms, or if there is anything that worries you. Return to the emergency department if symptoms are worsening, become concerning, or for any other concerns. Follow-up with your doctor in 2-3 and sooner if needed. documented in this encounter Consult Notes * Fidelia Majano MD - 12/31/2022 11:32 AM CDT [facility] Stroke Telephone Note I was called by Norm Willis on 12/31/22 regarding patient Jacinda Epps. The patient suraj 77 year old female who went to bed feeling at baseline last night then woke up this morning between 6 and 6:30 am and was unsteady on her feet. She had a similar episode of imbalance 2 weeks ago that subsided spontaneously. Of note, patient has h/o HTN, CAD, s/p coronary stent and on plavix at home. BP (!) 168/79 Pulse 74 Temp 98.2 ??F (36.8 ??C) (Oral) Resp 18 Wt 122.5 kg (270 lb) SpO2 98% Stroke Code Data (for stroke code without tele) Stroke code activated 12/31/22 1108 Stroke provider first response 12/31/22 1110 Last known normal 12/30/22 Time of discovery (or onset of symptoms) 12/31/[address] read by Stroke Neuro Dr/Provider 12/31/22 1128 Was stroke code de-escalated? Yes 12/31/[address] head: no acute pathology CTA head/neck: no stenosis or occlusion Intravenous Thrombolysis Not given due to: - unclear or unfavorable risk-benefit profile for extended window thrombolysis beyond the conventional 4.5 hour time window Endovascular Treatment Not initiated due to absence of proximal vessel occlusion Impression Recurrent episodes of gait unsteadiness. Possible stroke. Recommendations MRI brain with and without contrast. Based on MRI, we will finalize the plan. My recommendations are based on the information provided over the phone by Jacinda Epps's in-person providers. They are not intended to replace the clinical judgment of her in-person providers. I was not requested to personally see or examine the patient at this time. Fidelia Majano MD, Msc, BRENNEN HIGGINBOTHAM Artist Color Separation of Neurology [facility] 12/31/2022 11:32 AM To page me or covering stroke neurology shipping team leader, click here: AMCOM Choose Senior Qc Technician tab at top, then search dropdown box for Neurology Adult & press Enter, lookfor Neuro ICU/Stroke documented in this encounter ED Notes * Marcy Lucero RN - 12/31/2022 11:35 AM CDT Bed: ED33 Expected date: Expected time: Means of arrival: Comments: Triage stroke pt * Mickie Garcia RN - 12/31/2022 10:56 AM CDT Pt reports that she noted this morning at 0630 she started having difficulty walking, pt reports that she normally has gait issues but nothing like this, sensation intact, no facial droop, no headache or blurred vision. VSS, stat stroke eval Alba matute at bedside * Norm Willis MD - 12/31/2022 10:41 AM CDT History Chief Complaint: Gait Problem HPI Jacinda Epps is a 77 year old female who presents to the ED with gait ataxia. She went to bed at10 PM last night and felt normal. She awoke at 6-6 30 and felt that her gait was unstable. She saysthis is not a lightheadedness, vertigo, or near syncopal sensation. She feels that when she tries to walk she is very unstable and is not able to and requires assistance. She had a similar episode 3 weeks ago that occurred during the night but was self-limited and had resolved by the time she got out of bed. She denies headache or chest pain. She does not have any lateralizing numbness or weakness that is new. She has chronic cervical radiculopathy with diffuse tingling. She follows this as an outpatient. She has a history of hypertension and coronary artery disease and is on Plavix. No other anticoagulants. She denies any recent fever, cough, congestion. No vomiting or diarrhea. No dysuriaor increased urinary frequency. Independent Historian: The patient's [id number] is present with her and provides additional history in terms of the patient's baseline status and the changes today. Review of External Notes: Office visit reviewed from September 29, 2022 when she was seen for evaluation for ongoing management of coronary artery disease, hypertension, obesity, and diabetes. Medications: Metoprolol 25 mg Plavix 75 mg Levothyroxine 137 mcg Omeprazole 40 mg Verapamil 240 mg Aspirin 81 mg Enalapril/hydrochlorothiazide 10-25 Trazodone 50 mg Escitalopram 5 mg Atorvastatin 40 mg Lantus insulin 6 units Past Medical History: Hypertension Coronary artery disease Cervical radiculopathy Hypothyroidism Acid reflux Depression Hypercholesterol Diabetes Past Surgical History: No past surgical history on file. Physical Exam Patient Vitals for the past 24 hrs: BP Temp Temp src Pulse Resp SpO2 Weight 12/31/22 1300 (!) 168/72 -- -- 70 -- -- -- 12/31/22 1230 (!) 157/77 -- -- 70 -- -- -- 12/31/22 1212 (!) 197/80 -- -- 69 18 95 % -- 12/31/22 1053 (!) 168/79 98.2 ??F (36.8 ??C) Oral 74 18 98 % 122.5 kg (270 lb) Physical Exam Constitutional: General: She is not in acute distress. Appearance: Normal appearance. She is not diaphoretic. HENT: Head: Atraumatic. Right Ear: External ear normal. Left Ear: External ear normal. Mouth/Throat: Mouth: Mucous membranes are moist. Eyes: General: No scleral icterus. Conjunctiva/sclera: Conjunctivae normal. Comments: No nystagmus Cardiovascular: Rate and Rhythm: Normal rate and regular rhythm. Heart sounds: Normal heart sounds. Pulmonary: Effort: No respiratory distress. Breath sounds: Normal breath sounds. Abdominal: General: Abdomen is flat. There is no distension. Tenderness: There is no abdominal tenderness. Musculoskeletal: Cervical back: Neck supple. Skin: General: Skin is warm. Findings: No rash. Neurological: Mental Status: She is alert and oriented to person, place, and time. Comments: Speech is fluent. Romberg is positive and she is not able to walk due to instability. No facial asymmetry. Apple Sorter strength 5 out of 5 and equal bilaterally in the hands. No facial asymmetry. Strength 5 out of 5 and equal bilaterally in lower extremities. Sensation to light touch is intact and symmetric over the face, arm, and legs. No arm drift. No finger-nose dysmetria. Psychiatric: Mood and Affect: Mood normal. Behavior: Behavior normal. Emergency Department Course ECG ECG results from 12/31/22 EKG 12-lead, tracing only Value Systolic Blood Pressure Diastolic Blood Pressure Ventricular Rate 72 Atrial Rate 72 KY Interval 166 QRS Duration 90 QT 398 QTc 435 P Sidman 49 R AXIS -52 T Sidman 10 Interpretation ECG Sinus rhythm Left axis deviation Abnormal ECG No previous ECGs available Imaging: CT Head Perfusion w Contrast - For Tier 2 Stroke Final Result IMPRESSION: Normal CT perfusion of the brain. Radiation dose for this scan was reduced using automated exposure control, adjustment of the mA and/or kV according to patient size, or iterative reconstruction technique LO KUMAR MD SYSTEM ID: [id number] CTA Head Neck with Contrast Final Result IMPRESSION: 1. Plaque without stenosis of the proximal and distal internal carotid arteries bilaterally. 2. Otherwise, normal neck and head CTA. Radiation dose for this scan was reduced using automated exposure control, adjustment of the mA and/or kV according to patient size, or iterative reconstruction technique LO KUMAR MD SYSTEM ID: [id number] CT Head w/o Contrast Final Result IMPRESSION: Diffuse cerebral volume loss and cerebral white matter changes consistent with chronic small vessel ischemic disease. No evidence for acute intracranial pathology. Radiation dose for this scan was reduced using automated exposure control, adjustment of the mA and/or kV according to patient size, or iterative reconstruction technique LO KUMAR MD SYSTEM ID: [id number] MR Brain w/o & w Contrast (Results Pending) Report per radiology Laboratory: Labs Ordered and Resulted from Time of ED Arrival to Time of ED Departure BASIC METABOLIC PANEL - Abnormal Result Value Sodium 135 (*) Potassium 4.5 Chloride 99 Carbon Dioxide (CO2) 26 Anion Gap 10 Urea Nitrogen 25.4 (*) Creatinine 1.14 (*) Calcium 9.0 Glucose 239 (*) GFR Estimate 49 (*) TROPONIN T, HIGH SENSITIVITY - Abnormal Troponin T, High Sensitivity 19 (*) ROUTINE UA WITH MICROSCOPIC REFLEX TO CULTURE - Abnormal Color Urine Light Yellow Appearance Urine Clear Glucose Urine Negative Bilirubin Urine Negative Ketones Urine Negative Specific Aurora Urine 1.020 Blood Urine Negative pH Urine 7.5 (*) Protein Albumin Urine 50 (*) Urobilinogen Urine Normal Nitrite Urine Negative Leukocyte Esterase Urine Negative RBC Urine <1 WBC Urine 2 Squamous Epithelials Urine 1 GLUCOSE BY METER - Abnormal GLUCOSE BY METER POCT 203 (*) RBC AND PLATELET MORPHOLOGY - Abnormal Platelet Assessment Platelets Clumped (*) RBC Morphology Confirmed RBC Indices INR - Normal INR 0.98 PARTIAL THROMBOPLASTIN TIME - Normal aPTT 26 TSH WITH FREE T4 REFLEX - Normal TSH 1.10 CBC WITH PLATELETS AND DIFFERENTIAL WBC Count 8.7 RBC Count 4.32 Hemoglobin 13.3 Hematocrit 41.4 MCV 96 MCH 30.8 MCHC 32.1 RDW 12.8 Platelet Count 259 % Neutrophils 78 % Lymphocytes 10 % Monocytes 8 % Eosinophils 3 % Basophils 1 % Immature Granulocytes 0 NRBCs per 100 WBC 0 Absolute Neutrophils 6.8 Absolute Lymphocytes 0.9 Absolute Monocytes 0.7 Absolute Eosinophils 0.2 Absolute Basophils 0.1 Absolute Immature Granulocytes 0.0 Absolute NRBCs 0.0 CBC WITH PLATELETS AND DIFFERENTIAL WBC Count 9.1 RBC Count 4.22 Hemoglobin 12.9 Hematocrit 40.2 MCV 95 MCH 30.6 MCHC 32.1 RDW 12.9 Platelet Count % Neutrophils 78 % Lymphocytes 10 % Monocytes 9 % Eosinophils 2 % Basophils 1 % Immature Granulocytes 0 NRBCs per 100 WBC 0 Absolute Neutrophils 7.1 Absolute Lymphocytes 0.9 Absolute Monocytes 0.8 Absolute Eosinophils 0.2 Absolute Basophils 0.1 Absolute Immature Granulocytes 0.0 Absolute NRBCs 0.0 GLUCOSE MONITOR NURSING POCT Emergency Department Course & Assessments: Impression & Plan Medical Decision Making: This patient is a 77-year-old woman who presents to the emergency department for evaluation of gaitataxia. Her symptoms are present on awakening and have been persistent throughout the day. No medication changes. Tier [address] activated. CT and CTA did not demonstrate acute pathology. Thepatient had stroke neurology input who recommended MRI which is pending. EKG does not show ischemic appearing changes and troponin is negative. Urine is clear. Blood sugar slightly elevated but the patient is known to be diabetic. She is hypertensive. We will wait on acutely lowering her blood pressure until we determine more definitively whether this is related to a stroke. After MRI we will reevaluate her symptoms. She received a dose of meclizine in the event that this may be related to vertigo. If she is still hypertensive at that point we can consider treating her blood pressure to see if this is improved as long as the MRI is negative. If she remains symptomatic then likely she will require observation admission and physical therapy. Diagnosis: ICD-10-CM 1. Dizziness R42 12/31/2022 Norm Willis MD McRoberts, Sean Edward, MD 12/31/22 1411 * Ron Menchaca MD - 12/31/2022 10:41 AM CDT Patient turned over to me pending MRI brain. MRI brain nonacute. Not suggestive of CVA. During her stay her blood pressure did rise up to 190 systolic but improved back to 168 without intervention. She no longer feels dizzy. She can ambulate unassisted with her cane. She states her balance is slightly off but her symptoms are improving. I thoroughly discussed the work-up with the patient and ultimately she feels comfortable going home, which I think is reasonable. With her improved assessment, do not think she requires IV antihypertensives. Discharged in stable conditions. All questions answered. Patient content with plan. Family member also here and content with plan. Ron Menchaca MD 12/31/22 1818 documented in this encounter Plan of Treatment Not on file documented as of this encounter Procedures Procedure Name Priority Date/Time Associated Diagnosis Comments MR BRAIN W/O & W CONTRAST STAT 12/31/2022 2:14 PM CDT RBC AND PLATELET MORPHOLOGY STAT 12/31/2022 12:19 PM CDT CBC WITH PLATELETS AND DIFFERENTIAL STAT 12/31/2022 12:19 PM CDT CBC WITH PLATELETS & DIFFERENTIAL STAT 12/31/2022 12:19 PM CDT ROUTINE UA WITH MICROSCOPIC REFLEX TO CULTURE STAT 12/31/2022 12:12 PM CDT EKG 12-LEAD, TRACING ONLY STAT 12/31/2022 11:[address] HEAD PERFUSION W CONTRAST STAT 12/31/2022 11:32 AM CDT CTA HEAD NECK W CONTRAST STAT 12/31/2022 11:[address] HEAD W/O CONTRAST STAT 12/31/2022 11:20 AM CDT GLUCOSE BY METER STAT 12/31/2022 11:0 9 AM CDT EXTRA TUBE STAT 12/31/2022 10:57 AM CDT EXTRA RED TOP TUBE STAT 12/31/2022 10 :57 AM CDT EXTRA BLUE TOP TUBE STAT 12/31/2022 1 0:57 AM CDT CBC WITH PLATELETS AND DIFFERENTIAL STAT 12/31/2022 10:57 AM CDT TROPONIN T, HIGH SENSITIVITY Add-On 12/31/2022 10:57 AM CDT CBC WITH PLATELETS & DIFFERENTIAL STAT 12/31/2022 10:57 AM CDT TSH WITH FREE T4 REFLEX STAT 01/01/20 10:57 AM CDT INR STAT 12/31/2022 10:57 AM CDT PARTIAL THROMBOPLASTIN TIME STAT 12/31/2022 10:57 AM CDT BASIC METABOLIC PANEL STAT 12/31/2022 10:57 AM CDT documented in this encounter Results * MR Brain w/o & w Contrast (12/31/2022 2:14 PM CDT) Anatomical Region Laterality Modality Head, SUBRAD MR NEURO, UMP MR NEURO, RAD MR Magnetic Resonance Impressions 12/31/2022 2:30 PM CDT IMPRESSION: ??Diffuse cerebral volume loss and cerebral white matter changes consistent with chronic small vessel ischemic disease. No evidence for acute intracranial pathology. LO KUMAR MD SYSTEM ID: [id number] Narrative 12/31/2022 2:30 PM CDT MRI OF THE BRAIN WITHOUT AND WITH CONTRAST 12/31/2022 2:14 PM COMPARISON: Head CT same day. HISTORY: ??Dizziness. TECHNIQUE: Axial diffusion-weighted with ADC map, axial T2-weighted with fat saturation, axial T1-weighted, axial turboFLAIR and coronal T1-weighted images of the brain were acquired without intravenous contrast. ??Following intravenous administration of gadolinium (12 mL Gadavist), axial T1-weighted images of the brain were acquired. FINDINGS: There is moderate diffuse cerebral volume loss. There are numerous scattered focal and patchy periventricular areas of abnormal T2 signal hyperintensity in the cerebral white matter bilaterally that are consistent with sequela of chronic small vessel ischemic disease. The ventricles and basal cisterns are within normal limits in configuration given the degree of cerebral volume loss. ??There is no midline shift. ??There are no extra-axial fluid collections. ??There is no evidence for stroke or acute intracranial hemorrhage. ??There is no abnormal contrast enhancement in the brain or its coverings. There is no sinusitis or mastoiditis. Procedure Note Lo Kumar MD - 12/31/2022 MRI OF THE BRAIN WITHOUT AND WITH CONTRAST 12/31/2022 2:14 PM COMPARISON: Head CT same day. HISTORY: Dizziness. TECHNIQUE: Axial diffusion-weighted with ADC map, axial T2-weighted with fat saturation, axial T1-weighted, axial turboFLAIR and coronal T1-weighted images of the brain were acquired without intravenous contrast. Following intravenous administration of gadolinium (12 mL Gadavist), axial T1-weighted images of the brain were acquired. FINDINGS: There is moderate diffuse cerebral volume loss. There are numerous scattered focal and patchy periventricular areas of abnormal T2 signal hyperintensity in the cerebral white matter bilaterally that are consistent with sequela of chronic small vessel ischemic disease. The ventricles and basal cisterns are within normal limits in configuration given the degree of cerebral volume loss. There is no midline shift. There are no extra-axial fluid collections. There is no evidence for stroke or acute intracranial hemorrhage. There is no abnormal contrast enhancement in the brain or its coverings. There is no sinusitis or mastoiditis. IMPRESSION: Diffuse cerebral volume loss and cerebral white matter changes consistent with chronic small vessel ischemic disease. No evidence for acute intracranial pathology. LO KUMAR MD SYSTEM ID: [id number] Norm Willis MD IMG MRI ORDERAB LES * (ABNORMAL) RBC and Platelet Morphology (12/31/2022 12:19 PM CDT) Pathologist [facility] Platelet Assessment Platelets Clumped(A) Automated Count Confirmed. Platelet morphology is normal. 12/31/2022 1:23 PM CDT [facility] RBC Morphology Confirmed RBC Indices 12/31/2022 1:23 PM CDT [facility] Blood STRUCTURE OF RIGHT UPPER LIMB / Unknown Venipuncture / Unknown 12/31/2022 12:19 PM CDT 12/31/2022 12:23 PM CDT Norm Willis MD LAB - BLOOD ORD ERABLES [facility] [address] [facility] Lab (1st floor, no room number) [place] [address], [facility] [phone] * CBC with platelets and differential (12/31/2022 12:19 PM CDT) Pathologist [facility] WBC Count 9.1 4.0 - 11.0 10e3/uL 12/31/2022 1:31 PM CDT [facility] RBC Count 4.22 3.80 - 5.20 10e6/uL 12/31/2022 1:31 PM CDT [facility] Hemoglobin 12.9 11.7 - 15.7 g/dL 12/31/2022 1:31 PM CDT [facility] Hematocrit 40.2 35.0 - 47.0 % 12/31/2022 1:31 PM CDT [facility] MCV 95 78 - 100 fL 12/31/2022 1:31 PM CDT [facility] MCH 30.6 26.5 - 33.0 pg 12/31/2022 1:31 PM CDT [facility] MCHC 32.1 31.5 - 36.5 g/dL 12/31/2022 1:31 PM CDT [facility] RDW 12.9 10.0 - 15.0 % 12/31/2022 1:31 PM CDT [facility] Platelet Count 12/31/2022 1:31 PM CDT [facility] Comment:Platelets Clumped-Pl atelet Count Not Available % Neutrophils 78 % 12/31/2022 1:31 PM CDT [facility] % Lymphocytes 10 % 12/31/2022 1:31 PM CDT [facility] % Monocytes 9 % 12/31/2022 1:31 PM CDT [facility] % Eosinophils 2 % 12/31/2022 1:31 PM CDT [facility] % Basophils 1 % 12/31/2022 1:31 PM CDT [facility] % Immature Granulocytes 0 % 12/31/2022 1:31 PM CDT [facility] NRBCs per 100 WBC 0 <1 /100 023 1:31 PM CDT [facility] Absolute Neutrophils 7.1 1.6 - 8.3 10e3/uL 12/31/2022 1:31 PM CDT [facility] Absolute Lymphocytes 0.9 0.8 - 5.3 10e3/uL 12/31/2022 1:31 PM CDT [facility] Absolute Monocytes 0.8 0.0 - 1.3 10e3/uL 12/31/2022 1:31 PM CDT [facility] Absolute Eosinophils 0.2 0.0 - 0.7 10e3/uL 12/31/2022 1:31 PM CDT [facility] Absolute Basophils 0.1 0.0 - 0.2 10e3/uL 12/31/2022 1:31 PM CDT [facility] Absolute Immature Granulocytes 0.0 <=0.4 10e3/uL 12/31/2022 1:31 PM CDT [facility] Absolute NRBCs 0.0 10e3/uL 12/31/2022 1:31 PM CDT [facility] Blood STRUCTURE OF RIGHT UPPER LIMB / Unknown Venipuncture / Unknown 12/31/2022 12:19 PM CDT 12/31/2022 12:23 PM CDT Norm Willis MD LAB - BLOOD ORD ERABLES LABORATORY [facility] [address] [facility] Lab (1st floor, no room number) [place] [address], [facility] [phone] * (ABNORMAL) UA with Microscopic reflex to Culture (12/31/2022 12:12 PM CDT) Color Urine Light Yellow Colorless, Straw, Light Yellow, Yellow 12/31/2022 12:46 PM CDT LABORATORY Appearance Urine Clear Clear 01/01/20 12:46 PM CDT LABORATORY Glucose Urine Negative Negative mg/dL 12/31/2022 12:46 PM CDT LABORATORY Bilirubin Urine Negative Negative 12:46 PM CDT LABORATORY Ketones Urine Negative Negative mg/dL 12/31/2022 12:46 PM CDT LABORATORY Specific Aurora Urine 1.020 1.003 - 1.035 PERFECTO 12/31/2022 12:46 PM CDT LABORATORY Blood Urine Negative Negative 12/31/2022 12:46 PM CDT LABORATORY pH Urine 7.5(H) 5.0 - 7.0 12/31/2022 12:46 PM CDT LABORATORY Protein Albumin Urine 50(A) Negative mg/dL 12/31/2022 12:46 PM CDT LABORATORY Urobilinogen Urine Normal Normal, 2.0 mg/dL 12/31/2022 12:46 PM CDT LABORATORY Nitrite Urine Negative Negative 12/31/2022 12:46 PM CDT LABORATORY Leukocyte Esterase Urine Negative Negative 12/31/2022 12:46 PM CDT LABORATORY RBC Urine <1 <=2 /HPF 12/31/2022 12:46 PM CDT LABORATORY WBC Urine 2 <=5 /HPF 12/31/2022 12:46 PM CDT LABORATORY Squamous Epithelials Urine 1 <=1 /HPF 12/31/2022 12:46 PM CDT LABORATORY Urine URINE SPECIMEN OBTAINED BY CLEAN CATCH PROCEDURE / Unknown Non-blood Collection / Unknown 12/31/2022 12:12 PM CDT 12/31/2022 12:24 PM CDT Narrative LABORATORY - 12/31/2022 12:46 PM CDT Urine Culture not indicated Norm Willis MD LAB - URINE ORD ERABLES LABORATORY [facility] [address] Lab (1st floor, no room number) [place] [address], [facility] [phone] * EKG 12-lead, tracing only (12/31/2022 11:47 AM CDT) Systolic Blood Pressure mmHg RADIOLOGY RESULTS Diastolic Blood Pressure mmHg RADIOLOGY RESULTS Ventricular Rate 72 BPM RAD IOLOGY RESULTS Atrial Rate 72 BPM RADIOLOG Y RESULTS KY Interval 166 ms RADIOLOG Y RESULTS QRS Duration 90 ms RADIOLO GY RESULTS QT 398 ms RADIOLOGY RESULTS QTc 435 ms RADIOLOGY RESULTS P Sidman 49 degrees RADIOLOGY RESULTS R AXIS -52 degrees RADIOLOGY RESULTS T Sidman 10 degrees RADIOLOGY RESULTS Interpretation ECG Sinus rhythm Left axis deviation Abnormal ECG No previous ECGs available Confirmed by - EMERGENCY ROOM, PHYSICIAN ([id number]), health editor JIMMY BAIRD ([id number]) on 01/01/2023 7:43:07 AM RADIOLOGY RESULTS 12/31/2022 11:4 7 AM CDT 01/01/2023 7:43 AM CDT Norm Willis MD ECG ORDERABLES Performing Organization Address [facility]/ZIP Co de Phone Number RADIOLOGY RESULTS * CT Head Perfusion w Contrast - For Tier 2 Stroke (12/31/2022 11:32 AM CDT) Anatomical Region Laterality Modality Head, SUBRAD CT NEURO, SUBRAD CT NEURO, UMP CT N EURO Computed Tomography Impressions 12/31/2022 11:44 AM CDT IMPRESSION: Normal CT perfusion of the brain. Radiation dose for this scan was reduced using automated exposure control, adjustment of the mA and/or kV according to patient size, or iterative reconstruction technique LO KUMAR MD SYSTEM ID: ??[id number] Narrative 12/31/2022 11:[address] BRAIN PERFUSION 12/31/2022 11:32 AM COMPARISON: None. HISTORY: Altered mental status, balance difficulties. TECHNIQUE: Time sequential axial CT images of the head were acquired during the administration of intravenous contrast (125mL Isovue-370 per 2 exams). CTA images of the [place] as well as color perfusion maps of the brain were created from this time sequential axial source data. FINDINGS: There are no focal or regional perfusion defects in the brain. Procedure Note Lo Kumar MD - 12/31/2022 CT BRAIN PERFUSION 12/31/2022 11:32 AM COMPARISON: None. HISTORY: Altered mental status, balance difficulties. TECHNIQUE: Time sequential axial CT images of the head were acquired during the administration of intravenous contrast (125mL Isovue-370 per 2 exams). CTA images of the [place] as well as color perfusion maps of the brain were created from this time sequential axial source data. FINDINGS: There are no focal or regional perfusion defects in the brain. IMPRESSION: Normal CT perfusion of the brain. Radiation dose for this scan was reduced using automated exposure control, adjustment of the mA and/or kV according to patient size, or iterative reconstruction technique LO KUMAR MD SYSTEM ID: [id number] Norm Willis MD IMG CT ORDERABL ES * CTA Head Neck with Contrast (12/31/2022 11:26 AM CDT) Anatomical Region Laterality Modality Head, SUBRAD CT NEURO, SUBRA D CT NEURO, UMP CT NEURO, RAD CT Computed Tomography Impressions 12/31/2022 11:44 AM CDT IMPRESSION: 1. Plaque without stenosis of the proximal and distal internal carotid arteries bilaterally. 2. Otherwise, normal neck and head CTA. Radiation dose for this scan was reduced using automated exposure control, adjustment of the mA and/or kV according to patient size, or iterative reconstruction technique LO KUMAR MD SYSTEM ID: ??[id number] Narrative 12/31/2022 11:[address] ANGIOGRAM OF THE HEAD AND NECK WITHOUT AND WITH CONTRAST ??12/31/2022 11:26 AM COMPARISON: None. HISTORY: Altered mental status. Balance is off. TECHNIQUE: Precontrast localizing scans were followed by CT angiography with an injection of 125mL Isovue-370 per 2 exams nonionic intravenous contrast material with scans through the head and neck. Images were transferred to a separate 3-D workstation where multiplanar reformations and 3-D images were created. ??Estimates of carotid stenoses are made relative to the distal internal carotid artery diameters except as noted. ?? FINDINGS: Neck CTA: The common carotid arteries bilaterally are patent without stenosis. There is calcified atherosclerotic plaque at the origins of the internal carotid arteries on both sides that does not result in stenosis on either side. The vertebral arteries bilaterally are patent without stenosis. Head CTA: There is calcified plaque of the intracranial distal internal carotid arteries on both sides that does not result in any significant vascular narrowing. The basilar, bilateral intracranial distal internal carotid, bilateral anterior cerebral, bilateral middle cerebral and bilateral posterior cerebral arteries are patent without stenosis. Procedure Note Lo Kumar MD - 12/31/2022 CT ANGIOGRAM OF THE HEAD AND NECK WITHOUT AND WITH CONTRAST 12/31/2022 11:26 AM COMPARISON: None. HISTORY: Altered mental status. Balance is off. TECHNIQUE: Precontrast localizing scans were followed by CT angiography with an injection of 125mL Isovue-370 per 2 exams nonionic intravenous contrast material with scans through the head and neck. Images were transferred to a separate 3-D workstation where multiplanar reformations and 3-D images were created. Estimates of carotid stenoses are made relative to the distal internal carotid artery diameters except as noted. FINDINGS: Neck CTA: The common carotid arteries bilaterally are patent without stenosis. There is calcified atherosclerotic plaque at the origins of the internal carotid arteries on both sides that does not result in stenosis on either side. The vertebral arteries bilaterally are patent without stenosis. Head CTA: There is calcified plaque of the intracranial distal internal carotid arteries on both sides that does not result in any significant vascular narrowing. The basilar, bilateral intracranial distal internal carotid, bilateral anterior cerebral, bilateral middle cerebral and bilateral posterior cerebral arteries are patent without stenosis. IMPRESSION: 1. Plaque without stenosis of the proximal and distal internal carotid arteries bilaterally. 2. Otherwise, normal neck and head CTA. Radiation dose for this scan was reduced using automated exposure control, adjustment of the mA and/or kV according to patient size, or iterative reconstruction technique LO KUMAR MD SYSTEM ID: [id number] Norm Willis MD IM CT ORDERABL ES * CT Head w/o Contrast (12/31/2022 11:20 AM CDT) Anatomical Region Laterality Modality Head, SUBRAD CT NEURO, SUBRA D CT NEURO, UMP CT NEURO, RAD CT Computed Tomography Impressions 12/31/2022 11:44 AM CDT IMPRESSION: Diffuse cerebral volume loss and cerebral white matter changes consistent with chronic small vessel ischemic disease. No evidence for acute intracranial pathology. Radiation dose for this scan was reduced using automated exposure control, adjustment of the mA and/or kV according to patient size, or iterative reconstruction technique LO KUMAR MD SYSTEM ID: ??[id number] Narrative 12/31/2022 11:[address] OF THE HEAD WITHOUT CONTRAST 12/31/2022 11:20 AM COMPARISON: None. HISTORY: Altered mental status, balance difficulties. TECHNIQUE: [address] images of the head were acquired without IV contrast material. FINDINGS: There is mild diffuse cerebral volume loss. There are subtle patchy areas of decreased density in the cerebral white matter bilaterally that are consistent with sequela of chronic small vessel ischemic disease. The ventricles and basal cisterns are within normal limits in configuration given the degree of cerebral volume loss. There is no midline shift. There are no extra-axial fluid collections. No intracranial hemorrhage, mass or recent infarct. The visualized paranasal sinuses are well-aerated. There is no mastoiditis. There are no fractures of the visualized bones. Procedure Note Lo Kumar MD - 12/31/2022 CT OF THE HEAD WITHOUT CONTRAST 12/31/2022 11:20 AM COMPARISON: None. HISTORY: Altered mental status, balance difficulties. TECHNIQUE: [address] images of the head were acquired without IV contrast material. FINDINGS: There is mild diffuse cerebral volume loss. There are subtle patchy areas of decreased density in the cerebral white matter bilaterally that are consistent with sequela of chronic small vessel ischemic disease. The ventricles and basal cisterns are within normal limits in configuration given the degree of cerebral volume loss. There is no midline shift. There are no extra-axial fluid collections. No intracranial hemorrhage, mass or recent infarct. The visualized paranasal sinuses are well-aerated. There is no mastoiditis. There are no fractures of the visualized bones. IMPRESSION: Diffuse cerebral volume loss and cerebral white matter changes consistent with chronic small vessel ischemic disease. No evidence for acute intracranial pathology. Radiation dose for this scan was reduced using automated exposure control, adjustment of the mA and/or kV according to patient size, or iterative reconstruction technique LO KUMAR MD SYSTEM ID: [id number] Norm Willis MD IMG CT ORDERABL ES * (ABNORMAL) Glucose by meter (12/31/2022 11:09 AM CDT) GLUCOSE BY METER POCT 203(H) 70 - 99 mg/dL 12/31/2022 11:16 AM CDT LABORATORY POC Blood, Capillary BLOOD SPECIMEN / Unknown 12/31/2022 11:09 AM CDT 12/31/2022 11:16 AM CDT Norm Willis MD LAB - BEAKER CT LABORATORY [facility] [address] (1st floor, no room number) [place] [phone], [facility] [phone] * TSH with free T4 reflex (12/31/2022 10:57 AM CDT) TSH 1.10 0.30 - 4.20 uIU/mL 12/31/2022 1:38 PM CDT LABORATORY Blood BLOOD SPECIMEN / Unknown Venipuncture / Unknown 12/31/2022 10:57 AM CDT 12/31/2022 11:02 AM CDT Norm Willis MD LAB - BLOOD ORD ERABLES [facility] [address] (1st floor, no room number) [place] [phone], [facility] [phone] * (ABNORMAL) Troponin T, High Sensitivity (12/31/2022 10:57 AM CDT) Troponin T, High Sensitivity 19(H) <=14 ng/L 12/31/2022 11:22 AM CDT LABORATORY Comment: Either a High Sensitivity Troponin T baseline (0 hours) value = 100 ng/L, or an increase in High Sensitivity Troponin T = 7 ng/L at 2 hours compared to 0 hours (2-0 hours), suggests myocardial injury, and urgent clinical attention is required. ?? If the 2-0 hours increase is <7 ng/L, a High Sensitivity Troponin T result above gender-specific reference ranges warrants further evaluation. Recommendations for further evaluation include correlation with clinical decision-making tool (e.g., HEART), a 3rd High Sensitivity Troponin T test 2 hours after the 2nd (a 20% change from baseline would represent concern), admission for observation, close PCC/cardiology follow-up, or urgent outpatient provocative testing. Blood BLOOD SPECIMEN / Unknown Venipuncture / Unknown 12/31/2022 10:57 AM CDT 12/31/2022 11:02 AM CDT Norm Willis MD LAB - BLOOD ORD ERABLES [facility] [address] (1st floor, no room number) [place] [address], [facility] [phone] * Partial thromboplastin time (12/31/2022 10:57 AM CDT) aPTT 26 22 - 38 Seconds 12/31/2022 11:25 AM CDT LABORATORY Blood VENOUS LINE / Unknown Venipuncture / Unknown 12/31/2022 10:57 AM CDT 12/31/2022 11:02 AM CDT Norm Willis MD LAB - BLOOD ORD ERABLES [facility] [address] Lab (1st floor, no room number) [place] [address], [facility] [phone] * INR (12/31/2022 10:57 AM CDT) INR 0.98 0.85 - 1.15 12/31/2022 11:24 AM CDT [facility] LABORATORY Blood VENOUS LINE / Unknown Venipuncture / Unknown 12/31/2022 10:57 AM CDT 12/31/2022 11:02 AM CDT Norm Willis MD LAB - BLOOD ORD ERABLES [facility] [address] Lab (1st floor, no room number) [place] [address], [facility] [phone] * Extra Red Top Tube (12/31/2022 10:57 AM CDT) Hold Specimen [facility] 12/31/2022 12:07 PM CDT [facility] LABORATORY Blood VENOUS LINE / Unknown Venipuncture / Unknown 12/31/2022 10:57 AM CDT 12/31/2022 11:02 AM CDT Tao Hogue MD LAB - BLOOD ORD ERABLES [facility] [address] Lab (1st floor, no room number) [place] [address], [facility] [phone] * Extra Blue Top Tube (12/31/2022 10:57 AM CDT) Hold Specimen [facility] 12/31/2022 12:07 PM CDT [facility] LABORATORY Blood VENOUS LINE / Unknown Venipuncture / Unknown 12/31/2022 10:57 AM CDT 12/31/2022 11:02 AM CDT Tao Hogue MD LAB - BLOOD ORD ERABLES [facility] [address] Lab (1st floor, no room number) [place] [address], [facility] [phone] * CBC with platelets and differential (12/31/2022 10:57 AM CDT) WBC Count 8.7 4.0 - 11.0 10e3/uL 12/31/2022 11:04 AM CDT [facility] LABORATORY RBC Count 4.32 3.80 - 5.20 10e6/uL 12/31/2022 11:04 AM CDT [facility] LABORATORY Hemoglobin 13.3 11.7 - 15.7 g/dL 12/31/2022 11:04 AM CDT [facility] LABORATORY Hematocrit 41.4 35.0 - 47.0 % 12/31/2022 11:04 AM CDT [facility] LABORATORY MCV 96 78 - 100 fL 12/31/2022 11:04 AM CDT [facility] LABORATORY MCH 30.8 26.5 - 33.0 pg 12/31/2022 11:04 AM CDT [facility] LABORATORY MCHC 32.1 31.5 - 36.5 g/dL 12/31/2022 11:04 AM CDT [facility] LABORAT[facility] RDW 12.8 10.0 - 15.0 % 12/31/2022 11:04 AM CDT [facility] LABORATORY Platelet Count 259 150 - 450 10e3/uL 12/31/2022 11:04 AM CDT [facility] LAB[facility] % Neutrophils 78 % 12/31/2022 11:04 AM CDT [facility] LAB[facility] % Lymphocytes 10 % 12/31/2022 11:04 AM CDT [facility] LAB[facility] % Monocytes 8 % 12/31/2022 11:04 AM CDT [facility] LAB[facility] % Eosinophils 3 % 12/31/2022 11:04 AM CDT [facility] LAB[facility] % Basophils 1 % 12/31/2022 11:04 AM CDT [facility] LABORATORY % Immature Granulocytes 0 % 12/31/2022 11:04 AM CDT [facility] LABORATORY NRBCs per 100 WBC 0 <1 /100 023 11:04 AM CDT [facility] LABORATORY Absolute Neutrophils 6.8 1.6 - 8.3 10e3/uL 12/31/2022 11:04 AM CDT [facility] LABORATORY Absolute Lymphocytes 0.9 0.8 - 5.3 10e3/uL 12/31/2022 11:04 AM CDT [facility] LABORATORY Absolute Monocytes 0.7 0.0 - 1.3 10e3/uL 12/31/2022 11:04 AM CDT LABORATORY Absolute Eosinophils 0.2 0.0 - 0.7 10e3/uL 12/31/2022 11:04 AM CDT LABORATORY Absolute Basophils 0.1 0.0 - 0.2 10e3/uL 12/31/2022 11:04 AM CDT [facility] LABORATORY Absolute Immature Granulocytes 0.0 <=0.4 10e3/uL 12/31/2022 11:04 AM CDT LABORATORY Absolute NRBCs 0.0 10e3/uL 12/31/2022 11:04 AM CDT LABORATORY Blood BLOOD SPECIMEN / Unknown Venipuncture / Unknown 12/31/2022 10:57 AM CDT 12/31/2022 11:02 AM CDT Tao Hogue MD LAB - BLOOD ORD ERABLES LABORATORY [facility] Lab [address] Lab (1st floor, no room number) [place] [address], [facility] [phone] * (ABNORMAL) Basic metabolic panel (BMP) (12/31/2022 10:57 AM CDT) Sodium 135(L) 136 - 145 mmol/L 12/31/2022 11:22 AM CDT LABORATORY Potassium 4.5 3.4 - 5.3 mmol/L 12/31/2022 11:22 AM CDT LABORATORY Chloride 99 98 - 107 mmol/L 12/31/2022 11:22 AM CDT LABORATORY Carbon Dioxide (CO2) 26 22 - 29 mmol/L 12/31/2022 11:22 AM CDT LABORATORY Anion Gap 10 7 - 15 mmol/L 12/31/2022 11:22 AM CDT LABORATORY Urea Nitrogen 25.4(H) 8.0 - 23.0 mg/dL 12/31/2022 11:22 AM CDT LABORATORY Creatinine 1.14(H) 0.51 - 0.95 mg/dL 12/31/2022 11:22 AM CDT LABORATORY Calcium 9.0 8.8 - 10.2 mg/dL 12/31/2022 11:22 AM CDT [facility] LABORATORY Glucose 239(H) 70 - 99 mg/dL 12/31/2022 11:22 AM CDT [facility] LABORATORY GFR Estimate 49(L) >60 mL/min/1.7 3m2 12/31/2022 11:22 AM CDT [facility] LABORATORY Blood BLOOD SPECIMEN / Unknown Venipuncture / Unknown 12/31/2022 10:57 AM CDT 12/31/2022 11:02 AM CDT Tao Hogue MD LAB - BLOOD ORD ERABLES LABORATORY [facility] [address] [facility] ([facility]st floor, no room number) [place] [address], [facility] [phone] documented in this encounter Visit Diagnoses Diagnosis Dizziness Dizziness and giddiness documented in this encounter Administered Medications Inactive Administered Medications - up to 3 most recent administrations Medication Order MAR Action Action Date Dose Rate Site 0.9% sodium chloride BOLUS Intravenous, 1,000 mL, ONCE, at 1,000 mL/hr, Administer over 1 Hours, On Nola 12/31/22 at 1115, For 1 dose $New Bag 12/31/2022 11:48 AM CDT 1,000 mLs 1000 mL/hr CT SCAN FLUSH Intravenous, 100 mL, ONCE, On [place] 12/31/22 at 1115, For 1 dose, This entry is for use by Radiology to intermittently used as a flush in patients receiving a CT scan. $Given 12/31/2022 11:22 AM CDT 80 mLs gadobutrol (GADAVIST) injection 12 mL 12 mL, Intravenous, ONCE, On [place] 12/31/22 at 1335, For 1 dose $Given 12/31/2022 2:16 PM CDT 12 mLs iopamidol (ISOVUE-370) solution 500 mL 500 mL, Intravenous, ONCE, On [place] 12/31/22 at 1115, For 1 dose $Given 12/31/2022 11:22 AM CDT 125 mLs LORazepam (ATIVAN) injection 0.5 mg 0.5 mg, Intravenous, ONCE, On [place] 12/31/22 at 1200, For 1 dose, This drug may cause significant respiratory depression. Monitor respiratory status and vital signs carefully for 1 hour after each dose. $Given 12/31/2022 1:33 PM CDT 0.5 mg meclizine (ANTIVERT) tablet 25 mg 25 mg, Oral, ONCE, On [place] 12/31/22 at 1135, For 1 dose $Given 12/31/2022 11:48 AM CDT 25 mg documented in this encounter Active and Recently Administered Medications Times are shown in CDT. Scheduled Medication Order 12/29/2022 12/30/2022 12/31/2022 0.9% sodium chloride BOLUS (COMPLETED) Intravenous, 1,000 mL, ONCE, at 1,000 mL/hr, Administer over 1 Hours, On [place] 12/31/22 at 1115, For 1 dose 1148 ($New Bag - Pro vider: Leanne Amin RN)[id number] (Stopped - Provider: Leanne Amin RN) CT SCAN FLUSH (COMPLETED) Intravenous, 100 mL, ONCE, On [place] 12/31/22 at 1115, For 1 dose, This entry is for use by Radiology to intermittently used as a flush in patients receiving a CT scan. 1122 ($Given - Provi yaw: Justine Geronimo) gadobutrol (GADAVIST) injection 12 mL (COMPLETED) 12 mL, Intravenous, ONCE, On [place] 12/31/22 at 1335, For 1 dose 1416 ($Given - Provi yaw: Kiki Bonds) iopamidol (ISOVUE-370) solution 500 mL (COMPLETED) 500 mL, Intravenous, ONCE, On [place] 12/31/22 at 1115, For 1 dose 1122 ($Given - Provi yaw: Justine Geronimo - Comment: bulk) LORazepam (ATIVAN) injection 0.5 mg (COMPLETED) 0.5 mg, Intravenous, ONCE, On [place] 12/31/22 at 1200, For 1 dose, This drug may cause significant respiratory depression. Monitor respiratory status and vital signs carefully for 1 hour after each dose. 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
== END 2023-07-01 08:42 | disposition home or self-care (01) ==
PROVIDERS: PCP Emergency Medicine; Visit Provider Emergency Medicine
DX: N18.9 Chronic kidney disease, unspecified (principal); E53.8 Deficiency of other specified B group vitamins; D50.9 Iron deficiency anemia, unspecified; E11.9 Type 2 diabetes mellitus without complications; E78.5 Hyperlipidemia, unspecified; I10 Essential (primary) hypertension
CPT/HCPCS: 80048; 80061; 82043; 82570; 84443

== ENCOUNTER 2023-07-15 13:14 | Outpatient (RCR) | payer MEDICARE, OTHER, SELFPAY | END 2024-01-11 23:59 | disposition home or self-care (01) | LOC: CCIC 13:14 | PROVIDERS: PCP Emergency Medicine; Visit Provider Physician Assistant | DX: Z76.89 Persons encountering health services in other specified circumstances (principal); Z91.89 Other specified personal risk factors, not elsewhere classified; F17.210 Nicotine dependence, cigarettes, uncomplicated; G89.29 Other chronic pain; E66.9 Obesity, unspecified; M81.0 Age-related osteoporosis without current pathological fracture; I47.10 Supraventricular tachycardia, unspecified; Z90.5 Acquired absence of kidney; Z80.3 Family history of malignant neoplasm of breast | CPT/HCPCS: 99214; G0463 ==

== ENCOUNTER 2023-09-09 13:00 | Outpatient (RCR) | payer MEDICARE, OTHER, SELFPAY ==
--- NOTE | 2023-07-15 15:20 | OT.OPOE ---
OT Outpatient Ortho Eval OT Outpatient Ortho Eval* Start: 07/13/23 10:12 Freq: Status: Active Protocol: Document 07/13/23 10:12 LORENA (Rec: 07/15/23 15:14 RYDERCharla [id number]) E-signed By Maci Rivers, OTR/L, CLT OT OP Ortho Eval Details Complexity Complexity Low Insurance Information Insurance Information Medicare B Outpatient History/Precautions Current Condition/Medical Diagnosis Referring Provider Dr. Dong Dyer M.D. Treatment Diagnosis Pain in R hand, M79.641 Date of Onset 05/12/23 Other Precautions Ortho provider wrote order for Occupational therapy to work on finger joint ROM and desensitizing the surgical sites. She may do activities as tolerated. No limitations, no restrictions. No continued Ortho f/u appointments are scheduled at this time, provider will plan on seeing the patient p.r.n. if indicated. Other Conditions PMH includes but is not limited to: B12 deficiency (Acute) apr 2022 E53.8 - Deficiency of other specified B group vitamins ( ICD-10) Iron deficiency anemia (Acute) Colonoscopy 2021 D50.9 - Iron deficiency anemia , unspecified (ICD-10) History of carpal tunnel surgery of right wrist (Acute 05/12/23) right CTR, index and long TFR (05/12/2023, Dr. Dyer) Trigger finger, right ring finger (Acute) M65.341 - Trigger finger, right ring finger (ICD-10) Left carpal tunnel syndrome ( Acute) moderate-severe G56.02 - Carpal tunnel syndrome, left upper limb (ICD -10) Smoking greater than 40 pack years (Acute) F17.210 - Nicotine dependence, cigarettes, uncomplicated (ICD -10) Z12.31 - Encounter for screening mammogram for malignant neoplasm of breast ( ICD-10) COPD (chronic obstructive pulmonary disease) (Acute) J44.9 - Chronic obstructive pulmonary disease, unspecified (ICD-10) Z87.891 - Personal history of nicotine dependence (ICD-10) age 18-67 1ppd Cough (Acute) Albuminuria (Acute) R80.9 - Proteinuria, unspecified (ICD- 10) Tubular adenoma of colon ( Acute) 2021, colonoscopy 2026 D12.6 - Benign neoplasm of colon, unspecified (ICD-10) Acute bacterial rhinosinusitis (Acute) J01.90 - Acute sinusitis, unspecified (ICD-10) B96.89 - Other specified bacterial agents as the cause of diseases classified elsewhere (ICD-10) Cervical spine pain (Acute) M54.2 - Cervicalgia (ICD-10) Osteoarthritis of left knee ( Chronic) M17.12 - Unilateral primary osteoarthritis, left knee (ICD-10) Osteoarthritis of right knee ( Chronic) M17.11 - Unilateral primary osteoarthritis, right knee (ICD-10) Cystitis with hematuria (Acute ) N30.91 - Cystitis, unspecified with hematuria (ICD-10) Skin infection (Acute) L08.9 - Local infection of the skin and subcutaneous tissue, unspecified (ICD-10) Foot pain, right (Acute) M79. 671 - Pain in right foot (ICD- 10) At high risk for breast cancer (Acute) Mother and 2 sisters were diagnosed with breast cancer, all over age 50. Z91.89 - Other specified personal risk factors, not elsewhere classified (ICD-10) Colon cancer screening (Acute) Z12.11 - Encounter for screening for malignant neoplasm of colon (ICD-10) Abdominal pain (Acute) Adenomatous polyp - Benign neoplasm, unspecified site ( ICD-10) Polyp of paranasal sinus ( Acute) J33.8 - Other polyp of sinus (ICD-10) Osteoporosis (Acute) has taken fosamax x 5yrs in [place], M81.0 - Age-related osteoporosis without current pathological fracture (ICD-10) Non-ST elevation myocardial infarction (NSTEMI) (Acute 2018) Stent May 2019 I21.4 - Non-ST elevation ( NSTEMI) myocardial infarction (ICD-10) Mitral valve insufficiency ( Acute) Insulin dependent type 2 diabetes mellitus (Acute) A1c 8.7% on 02/10/2023 goal 7.5-8 hemoglobin A1c 9.7 E11.9 - Type 2 diabetes mellitus without complications (ICD-10) 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 abstracted [facility] medical record E03.9 - Hypothyroidism, unspecified (ICD-10) Hypertension (Acute) Hyperlipidemia (Acute) LDL goal <70 E78.5 - Hyperlipidemia, unspecified (ICD-10) Gastroesophageal reflux disease (Acute) takes PPI as little as possible q 4-5 d K21.9 - Gastro-esophageal reflux disease without esophagitis (ICD-10) Depressive disorder (Acute) F32.A - Depression, unspecified (ICD-10) Chronic pain (Acute) from multiple joints DJD & back pain. 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 no other tx necessary per records. 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 C64.9 - Malignant neoplasm of unspecified kidney, except renal pelvis (ICD-10) Breast cancer screening, high risk patient (Acute) recommended alternating mammogram MRI q 6mos Basal cell carcinoma (BCC) of skin of nose (Acute) C44.311 - Basal cell carcinoma of skin of nose (ICD-10) Atrial paroxysmal tachycardia (Acute) I47.1 - Supraventricular tachycardia (ICD-10) Arthritis multiple joints & spine M19.90 - Unspecified osteoarthritis, unspecified site (ICD-10) Anxiety (Acute) Anemia (Acute) Medication List: acetaminophen 500 - 1,000 mg PO .hs PRN albuterol sulfate 90 mcg/ actuation 1 - 2 puffs inhalation Q4-6H PRN amlodipine 5 mg PO QDAY aspirin 81 mg PO QDAY atorvastatin 40 mg PO .hs blood sugar diagnostic ( RadcomTouch Verio test strips) As directed enalapril maleate 10 mg PO QDAY escitalopram oxalate 5 mg PO QDAY famotidine (Pepcid) 20 mg PO QDAY fluticasone propionate 220 mcg /actuation (Flovent HFA) 1 puff inhalation BID hydrochlorothiazide 25 mg PO QDAY insulin glargine 10 units (0.1 mL) subcut QPM insulin lispro protamin-lispro 100 unit/mL (50-50) (Humalog Mix 50-50 KwikPen) subcutaneously; 50 units before breakfast, 36 units before lunch, 50 units before dinner lancets Patient to use to test three times daily levothyroxine 137 mcg PO QDAY metoprolol succinate ER 25 mg (1/2 x 50 mg) PO QDAY nystatin (Nyamyc) grams topical pen needle, diabetic (BD Ultra -Fine Mini Pen Needle) Use for insulin administration QID tramadol 25 - 50 mg (0.5 - 1 x 50 mg) PO QDAY PRN trazodone 50 mg PO .hs PRN triamcinolone acetonide 0.1% grams topical Medical/Functional History Medical History Reviewed Yes Prior Level of Function/Mobility Patient lives alone, is Indep with her ADLs/IADLs and still driving Social History Employment Status Retired 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 Lives in apartment in [place] near [facility] Ortho Subjective Subjective Subjective I don't think the surgery helped me, I'm feeling so discouraged, I have the pins/ needles and tingling in my R hand all the time Pain Assessment Pain Present Pain Present Pain Reported Location Right Hand Description Burning,Radiating,Shooting Intensity 10 Range of Motion and Strength Hand/Finger/Thumb Range of Motion and Strength Hand/Finger/Thumb Range of Motion and Incisions appear healthy, no Strength signs of infection, no redness . Tender overlying the incisions . Hand Pinch/Mason Liner Strength Hand Left Mason Liner Strength Position 1 (lbs) 39 Mason Liner Strength Position 2 (lbs) 45 Lateral Pinch Strength (lbs) 12 Three Point Pinch (lbs) 8 Right Mason Liner Strength Position 1 (lbs) 35 Mason Liner Strength Position 2 (lbs) 40 Lateral Pinch Strength (lbs) 13 Three Point Pinch (lbs) 10 OT Objective Data Hand Hand Dominance Right Hand Function Incisions appear healthy, no signs of infection, no redness . Tender overlying the incisions , recommending a desensitization program Upper Extremity Special Tests Median Nerve-Carpal Tunnel Wrist Phalen Test Positive Right Wrist Tinel Test right OT Problems Problems Problems Decreased Strength,Decreased Range of Motion,Decreased Dexterity,Pain,Decreased Coordination,Sensory Sensitivity,Lifting,Gripping, Pinching Problems Comments Patient mostly sleeps on her R side at NOC, she wakes up from the burning nerve pain Other Problems Writing,Opening Containers, Dressing,Fasteners,Sleeping Patient Potential Good Assessment Assessment Assessment Upon f/u ortho apt on 07/08/23 patient was referred to OT post right CTR, index and long TFR (05/12/2023). Patient is a 77-year-old R hand dominant female who states she is having persistent numbness in tingling in the radial 3.5 digits and numbness into the palm of the hand following her surgery from 2022. The pain and numbness have gotten worse with zinging pain when putting her hand flat on the table. She has stiffness in the finger joints. Ortho provider wrote order for Occupational therapy to work on finger joint ROM and desensitizing the surgical sites. She may do activities as tolerated. No limitations, no restrictions. No continued Ortho f/u appointments are scheduled at this time, provider will plan on seeing the patient p.r.n. if indicated. Occupational Therapy Treatment Plan - OP Potential Rehabilitation Potential Good Barriers Barriers to goal attainment Former Smoker-age 18-67 1ppd Diabetic-Insulin dependent type 2 diabetes mellitus ( Acute) A1c 8.7% on 02/10/2023 goal 7.5-8 hemoglobin A1c 9.7 Obesity Set Goals Goals Set with Patient Yes Goals Goals 1. Patient will be Indep with an individualized, comprehensive HEP with participation >15 mins per day 6 days per week. 2. Patient will accurately perform Median Nerve Glides and Nerve Flossing with use of handout. 3. Patient will be able to sleep >6 hours w/o waking up in the middle of the night from pain related to her R hand. 4. Patient will be able to return to basic ADLs/IADLs w/o pain >4/10 in her R (dominant ) hand. Target Date 8 weeks Treatment Plan Treatment Plan Evaluation,Edema Control,Joint Mobilization,Manual Therapy, Ultrasound,Therapeutic Exercise,Self Care/Home Management,Education Expected Frequency 1-2x Week Expected Duration 8-10 Weeks Home Program Home Program Home Program Initiated Home Program Specifics Median Nerve Glides and Median Nerve Flossing Recertification Information Recertification Information Initial Certification Date 07/13/23 Recertification Due Date 10/11/23 Click To Default 'Per treatment plan' Per treatment plan Continued Plan of Care and Interventions Per treatment plan Provider Signature Shows Agreement With POC & Medical Necessity Physician Comment/Change Comment or Changes Physician NPI Number #
--- NOTE | 2023-08-23 14:50 | PT.OPE ---
PT [place] Outpatient Eval PT [facility] Outpatient Eval Start: 07/29/23 12:57 Freq: Status: Active Protocol: Document 08/23/23 13:49 CJT (Rec: 08/23/23 13:51 JOSE MARIAT [id number]) E-signed By David Mcgrath PT Physical Therapy Outpatient Evaluation Insurance Information Recert Due Date 11/17/23 Insurance Name Medicare B Medical Diagnosis M54.5 - low back pain M54.2 - neck pain Treating Diagnosis M54.5 - low back pain M54.2 - neck pain Referring Dong Solitario MD Subjective Subjective Pt presents with complaints of chronic low back pain and pain in her neck for the past few years. Has had PT on her neck about 4 years ago. Reports this felt good at the time but had no profiling machine set up operator tool effects. Pt reports pain in the base of her neck with looking down and turning to the L. She also notes referred pain into her L side of the head with rotation to the L. Sleeps on her R side at night. Pt points to R side of low back as other source of her lumbar pain. 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 Pt performs some exercises for her back daily including leaning backward and leaning side to side to stretch. Pt reports she is not able to lay face down very easily and has discomfort with this. Pt does see a chiro but has not seen him for a while. Agrees to discontinue while attending therapy. Pt is very concerned about her protruding disc that was noticed in her last lumbar MRI and has fears that it cannot be fixed and her back pain cannot change, but she is open to trying therapy for a while. Pain Comments 01/14 Current Work Status Retired Preferred Name Jacinda Objective Other/Pertinent Objective Cervical ROM Extension - 40 *ache in L cervical spine Flexion - 40 *ache in base of cervical spine R/L Side Bend - 16/13 R/L Rotation - 50/45 Lumbar ROM Extension - Can reach mid schreiber , feels stretch in HS, no stretch in low back Flexion - feels good, very limited R/L Side Bend - greater stretch on R vs L R/L Rotation - limitations L>R R Hip ROM Flexion - 120 IR/ER - 26/23 Extension - DNT L Hip ROM (L SHA) Flexion - 120 IR/ER - 27/17 Extension - DNT R knee ROM - DNT pt lacking approx 10 degrees extension L knee ROM - DNT pt appears to have full ROM R Hip Strength Flexion - 4/5 MMT Abduction - 5/5 MMT (in sitting) Adduction - 5/5 MMT (in sitting) IR - 3/5 MMT ER - 4+/5 MMT Extension - DNT L Hip Strength Flexion - 5/5 MMT Abduction - 5/5 MMT (in sitting) Adduction - 5/5 MMT (in sitting) IR - 3/5 MMT ER - 5/5 MMT Extension - DNT R knee Extension - 5/5 MMT R Knee Flexion - 4+/5 MMT L knee Extension - 5/5 MMT L knee Flexion - 5/5 MMT R ankle DF - 4+/5 MMT L ankle DF - 3+/5 MMT LLD - testing limited due to adipose tissue 86.5 - 87.0 cm on R 84.0 - 85.0 cm on L Posture: trunk lean to R, L hip appears elevated over R, significant lack of R knee extension in standing Assessment Assessment/Impression Jacinda is a very pleasant 77 year old female who presents to our clinic for evaluation and treatment of chronic low back pain and neck pain. Pt does have history of discectomy back in 1986 and MRI does show protruded lumbar disc per her report. Pt demos fair but limited strength in B LEs as well as ROM restrictions (see objective). She will benefit from consistent practice of mobility exercises for her low back and strengthening exercises for her core and LEs . I do feel that we only scratched the surface of Jacinda's physical issues today . She does have scoliosis which has created some postural issues, however, she is also lacking full R knee extension and may have a leg length difference that would benefit from use of a heel lift. This measure was difficult to obtain though due to her abdominal mass. I will attempt to take these measures again at next appointment to confirm. In general, I feel Jacinda will benefit greatly from consistent therapeutic movement. The nature of the pts condition was explained and all questions were answered to the pts satisfaction. Skilled PT services are medically necessary to address deficits and return patient to highest level of function. Recommend physical therapy sessions 2 reducing to 1/week for 6-12 weeks. Pt agrees with this plan. Printout of HEP was given for I completion and pt gives verbal understanding of each exercise. Primary Functional Limitations Walking, squatting, stairs, turning to L Plan of Care Rehabilitation Potential Good Physical Therapy Goals STG - To be completed in 2-3 weeks: 1. Pt will report reduction in back pain by factor of 2 so that they may perform all ADLs with tolerable level of pain. 2. Pt will demonstrate improved lumbar flexion by 15 degrees so that they may herminia/ doff shoes and socks without compensation. 3. Pt will demonstrate at least 4+/5 MMT for all LE motions without reproduction of pain to provide greater support to pelvis and lumbar spine. LTG - To be completed in 8-12 weeks: 1. Pt to be I with HEP so that they may I manage progression of symptoms. 2. Pt will walk for 6 minutes with max 2/10 pain in low back so that she may walk through the grocery store to shop with manageable level of pain. 3. Pt will report absence of radiating pain into L side of head as indication of reduced muscle tissue tension in L UT. 4. Pt will demo improved cervical rotation and sidebend ROM bilaterally by at least 5 degrees so that she may look for traffic while driving. Treatment Plan/Direct Interventions Electrical Stimulation,Heat, Joint Mobilization,Manual Therapy,Neuromuscular Re-ed, Self-Care/Home Management, Therapeutic Activities, Therapeutic Exercises Frequency/Duration 1-2/week for 6-12 weeks Patient Will Be Discharged From Therapy Completion of LTG(s),Skills Plateau,Independent w/HEP, Independently Progressing Evaluation Billing Untimed Code Treatment Minutes 45 PT Eval No Charge No Complexity Low Certification Information Initial Certification Date 08/19/23 Ending Certification Date 11/16/23 Provider Signature Shows Agreement With POC & Medical Necessity Physician Signature & Date Requested Please Sign/Date Here Physician Comment/Change : Physician NPI Number #
== END 2023-11-02 15:25 | disposition home or self-care (01) ==
PROVIDERS: PCP Emergency Medicine; Visit Provider Orthopaedic Surgery Sports Medicine
DX: M54.2 Cervicalgia (principal); M54.50 Low back pain, unspecified; M79.641 Pain in right hand; Z98.890 Other specified postprocedural states; Z51.89 Encounter for other specified aftercare
CPT/HCPCS: 97035; 97110; 97140; 97161; 97165; X5282

== ENCOUNTER 2023-10-14 09:38 | Outpatient (CLI) | payer MEDICARE, OTHER, SELFPAY ==
--- OUTSIDE RECORDS SUMMARY | 2023-10-17 08:10 | XMS_ITS | Clinical Summary ---
Author Name Unknown Organization [facility] Address [address] [place] [id number] Care Team Providers Care Visual Design Lead Name Role Phone [facility], [facility] Allergies No known [...] DEXA 1945 HEPATITIS C SCREENING 12/03/1963 LIPID 1985 RSV VACCINE ( & 60+ ) (1 - 1-dose 60+ series) 2005 FALL RISK ASSESSMENT 2010 MEDICARE ANNUAL WELLNESS VISIT 2010 DTAP/TDAP/TD IMMUNIZATION (2 - Td or Tdap) 09/16/2021 09/17/2011 COVID-19 Vaccine (3 - 2022-2 4 season) 2023 04/26/2021, 07/24/2020 PHQ-2 (once per calendar year) 2023 INFLUENZA VACCINE (Season Ended) 2024 03/31/2022, 04/17/2021 GLUCOSE 12/31/2025 12/31/2022, 12/31/2022 Pneumococcal Vaccine: 65+ Years Completed 04/06/2017, 09/24/2011 [...] on patient's age to complete this topic Procedures Procedure Name Priority Date/Time Associated Diagnosis Comments BASIC METABOLIC PANEL STAT 12/31/2022 10:57 AM CDT from Last 3 Months or Most Recently Relevant to Health Maintenance Results * (ABNORMAL) Basic metabolic panel (BMP) (12/31/2022 10:57 AM CDT) Sodium 135(L) 136 - 145 mmol/L 12/31/2022 11:22 AM CDT [facility] Potassium 4.5 3.4 - 5.3 mmol/L 12/31/2022 11:22 AM CDT [facility] Chloride 99 98 - 107 mmol/L 12/31/2022 11:22 AM CDT [facility] Carbon Dioxide (CO2) 26 22 - 29 mmol/L 12/31/2022 11:22 AM CDT [facility] Anion Gap 10 7 - 15 mmol/L 12/31/2022 11:22 AM CDT [facility] Urea Nitrogen 25.4(H) 8.0 - 23.0 mg/dL 12/31/2022 11:22 AM CDT [facility] Creatinine 1.14(H) 0.51 - 0.95 mg/dL 12/31/2022 11:22 AM CDT [facility] Calcium 9.0 8.8 - 10.2 mg/dL 12/31/2022 11:22 AM CDT [facility] Glucose 239(H) 70 - 99 mg/dL 12/31/2022 11:22 AM CDT [facility] GFR Estimate 49(L) >60 mL/min/1.7 3m2 12/31/2022 11:22 AM CDT [facility] Blood BLOOD SPECIMEN / Unknown Venipuncture / Unknown 12/31/2022 10:57 AM CDT 12/31/2022 11:02 AM CDT Tao Hogue MD LAB - BLOOD ORD ERABLES [facility] [address] [facility] Lab (1st floor, no room number) [place] [address], [facility] [phone] from Last 3 Months or Most Recently Relevant to Health Maintenance Care Teams Visual Design Lead Relationship Specialty Start Date End Date [facility] [address] [place] [address] PCP - General 12/31/22
--- OUTSIDE RECORDS SUMMARY | 2023-10-17 08:10 | XMS_ITS | Referral Summary ---
Author Name Unknown Organization [facility] Address [address] [place] [id number] Care Team Providers Care Customer Program Specialist Name Role Phone Clinic, [facility] vider Allergies No known [...] - Plan of Treatment Not on file Procedures Procedure Name Priority Date/Time Associated Diagnosis [...] - 10.2 mg/dL 12/31/2022 11:22 AM CDT [facility] Glucose 239(H) 70 - 99 mg/dL 12/31/2022 11:22 AM CDT [facility] GFR Estimate 49(L) >60 mL/min/1.7 3m2 12/31/2022 11:22 AM CDT [facility] Blood BLOOD SPECIMEN / Unknown Venipuncture / Unknown 12/31/2022 10:57 AM CDT 12/31/2022 11:02 AM CDT Tao Hogue MD LAB - BLOOD ORD ERABLES [facility]ATORY [facility] [address] Lab (1st floor, no room number) [place] [address], [facility] [phone] from Last 3 Months or Most Recently Relevant to Health Maintenance Care Teams Customer Program Specialist Relationship Specialty Start Date End Date Clinic, [facility] [address] [place] [address] PCP - General 12/31/22
--- OUTSIDE RECORDS SUMMARY | 2023-10-17 08:10 | XMS_ITS | Clinical Summary ---
Author Name Unknown Organization [employer] [facility] Address [place], [place] [address] Care Team Providers Care Jewelry Drilling Machine Operator Name Role Phone Vaishali Arreaga MD Primary Care Provider [phone]- [phone] Allergies Active Allergy Reactions Criticality Noted Date Comments Hydrocodone Shortness Of Breath High 12/31/2020 Medications Medication Sig Dispensed Refills Start Date End Date Status traMADoL (ULTRAM) 50 mg tabletIndications:Mitr al valve insufficiency, unspecified etiology,Coronary artery disease involving [place] coronary artery of [place] heart without angina pectoris Take 0.5 Tablets (25 mg) by mouth at bedtime if needed for Pain. 0.1 Tablet 12/31/2020 Active cimetidine (TAGAMET) 200 mg tabletIndications:Mitr al valve insufficiency, unspecified etiology,Coronary artery disease involving [place] coronary artery of [place] heart without angina pectoris Take 1 Tablet (200 mg) by mouth at bedtime. 0.1 Tablet 12/31/2020 Active traZODone (DESYREL) 50 mg tabletIndications:Mitr al valve insufficiency, unspecified etiology,Coronary artery disease involving [place] coronary artery of [place] heart without angina pectoris Take 1 Tablet (50 mg) by mouth at bedtime. 0.1 Tablet 12/31/2020 Active atorvastatin (Lipitor) 40 mg tabletIndications:Mitr al valve insufficiency, unspecified etiology,Coronary artery disease involving [place] coronary artery of [place] heart without angina pectoris,Mixed hyperlipidemia Take 1 Tablet (40 mg) by mouth at bedtime. 0.1 Tablet 12/31/2020 Active enalapril-hydrochlorot hiazide, 10-25 mg, (VASERETIC) 10-25 mg tabletIndications:HTN (hypertension),Mitral valve insufficiency, unspecified etiology,Coronary artery disease involving [place] coronary artery of [place] heart without angina pectoris Take 1 Tablet by mouth once daily. 0.1 Tablet 12/31/2020 Active omeprazole (PRILOSEC) 40 mg Delayed-Release capsuleIndications:Giorgi ral valve insufficiency, unspecified etiology,Coronary artery disease involving [place] coronary artery of [place] heart without angina pectoris Take 1 Capsule (40 mg) by mouth once daily if needed for GI Upset. 0.1 Capsule 12/31/2020 Active levothyroxine (SYNTHROID) 150 mcg tabletIndications:Mitr al valve insufficiency, unspecified etiology,Coronary artery disease involving [place] coronary artery of [place] heart without angina pectoris Take 1 Tablet (150 mcg) by mouth before breakfast. 0.1 Tablet 12/31/2020 Active aspirin (ECOTRIN) 81 mg enteric coated tabletIndications:Mitr al valve insufficiency, unspecified etiology,Coronary artery disease involving [place] coronary artery of [place] heart without angina pectoris Take 1 Tablet (81 mg) by mouth once daily with a meal. 0.1 Tablet 12/31/2020 Active escitalopram oxalate (LEXAPRO) 5 mg [...] Diagnosed Date Coronary artery disease invo lving [place] coronary artery of [place] heart without angina pectoris 12/06/2020 Mitral valve insufficiency 12/06/2020 Mixed hyperlipidemia 12/06/2020 HTN (hypertension) 12/06/2020 Immunizations Name Administration Dates Next Due COVID-19 vaccine (Moderna 100mcg/0.5mL) ISAURA THOMAS 04/26/2021,07/24/2020 Influenza, High-dose Quadrivalent Inactivated ,04/17/2021 Pneumococcal [...] 10/13/2021 12:26 PM CDT Plan of Treatment Upcoming Encounters Date Type Department Care Team (Latest Contact Info) Description 10/26/2023 2:06 PM CDT Hospital Encounter [address] [address] Nils Manzano MD [address] [facility] [address] [place] [address] 10/26/2023 2:06 PM CDT - 10/26/2023 3:08 PM CDT Surgery [address] [address] Nils Manzano MD [address] [facility] [address] [place] [address] CYSTOSCOPY, BLADDER BIOPSY, FULGURATION Scheduled Procedures Name Priority Associated Diagnoses Date/Ti me CYSTOSCOPY BIOPSY BLADDER MALIGNANT TUMOR OF URINARY BLADDER 10/26/2023 2:06 PM CDT Health Maintenance Due Date Last Done Comments Depression screening for age 12+ 1957 BMI (ht and wt on same day) for age 18+ 12/03/1963 Hepatitis C screening for ag e 18-79 12/03/1963 DEXA/DXA scan for age 65+ 2010 Medicare Wellness for age 65+ 2010 Tetanus booster 09/16/2021 09/17/2011 Influenza for age 65+ 02/06/2024 03/31/2022, 021 Tdap Completed 09/17/2011 Pneumococcal series for age 65+ Completed 7, 09/24/2011 Zoster (shingles) series for age 50+ Completed 04/09/2020, 01/26/2020, 10/12/2014 COVID-19 vaccine series Completed 05/03/20 23, 03/31/2022, 04/26/2021, Additional history exists Care Teams Jewelry Drilling Machine Operator Relationship Specialty Start Date End Date Vaishali Arreaga MD [address] [place] [address] PCP - General Emergency Medicine 12/05/20
== END 2023-10-14 09:39 | disposition home or self-care (01) ==
LOC: NFLDREF 10-17 08:08
PROVIDERS: PCP Emergency Medicine; Referring Provider Emergency Medicine; Visit Provider Physician Assistant Medical
DX: Z00.00 Encounter for general adult medical examination without abnormal findings (principal); E11.9 Type 2 diabetes mellitus without complications; D50.9 Iron deficiency anemia, unspecified; E53.8 Deficiency of other specified B group vitamins; E78.5 Hyperlipidemia, unspecified; E03.9 Hypothyroidism, unspecified; N18.9 Chronic kidney disease, unspecified; Z79.4 Long term (current) use of insulin
CPT/HCPCS: 80053; 80061; 82043; 82570; 82607; 84443

== ENCOUNTER 2024-01-05 15:23 | Outpatient (CLI) | payer MEDICARE, OTHER, SELFPAY ==
--- OUTSIDE RECORDS SUMMARY | 2024-01-05 15:29 | XMS_ITS | Clinical Summary ---
Author Organization [employer] [facility] Address [place], [place] [address] Care Team Providers Care Truck Bracer Name Role Phone Vaishali Arreaga MD Primary Care Provider [phone]- [phone] Allergies Active Allergy Reactions Criticality Noted Date Comments Hydrocodone Shortness Of Breath High 12/31/2020 Medications Medication Sig Dispensed Refills Start Date End Date Status traMADoL (ULTRAM) 50 mg tabletIndications:Mi tral valve insufficiency, unspecified etiology,Coronary artery disease involving [place] coronary artery of [place] heart without angina pectoris Take 0.5 Tablets (25 mg) by mouth at bedtime if needed for Pain. 0.1 Tablet 12/31/2020 Active traZODone (DESYREL) 50 mg tabletIndications:Mi tral valve insufficiency, unspecified etiology,Coronary artery disease involving [place] coronary artery of [place] heart without angina pectoris Take 1 Tablet (50 mg) by mouth at bedtime. 0.1 Tablet 12/31/2020 Active atorvastatin (Lipitor) 40 mg tabletIndications:Mi tral valve insufficiency, unspecified etiology,Coronary artery disease involving [place] coronary artery of [place] heart without angina pectoris,Mixed hyperlipidemia Take 1 Tablet (40 mg) by mouth at bedtime. 0.1 Tablet 12/31/2020 Active enalapril-hydrochlor othiazide, 10-25 mg, (VASERETIC) 10-25 mg tabletIndications:HT N (hypertension),Tiarra l valve insufficiency, unspecified etiology,Coronary artery disease involving [place] coronary artery of [place] heart without angina pectoris Take 1 Tablet by mouth once daily. 0.1 Tablet 12/31/2020 Active levothyroxine (SYNTHROID) 150 mcg tabletIndications:Mi tral valve insufficiency, unspecified etiology,Coronary artery disease involving [place] coronary artery of [place] heart without angina pectoris Take 137 mcg by mouth before breakfast. 0.1 Tablet 12/31/2020 Active aspirin (ECOTRIN) 81 mg enteric coated tabletIndications:Mi tral valve insufficiency, unspecified etiology,Coronary artery disease involving [place] coronary artery of [place] heart without angina pectoris Take 1 Tablet (81 mg) by mouth once daily with a meal. 0.1 Tablet 12/31/2020 Active escitalopram oxalate (LEXAPRO) 5 mg tablet Take 1 Tablet (5 mg) by mouth every morning. 0 10/13/2021 Active metoprolol succinate (TOPROL XL) 25 mg Sustained-Release tabletIndications:HT N (hypertension) Take 1 Tablet (25 mg) by mouth once daily. 90 Tablet 3 10/13/2021 Active insulin lispro protamine-lispro, 50-50, (HumaLOG Mix 50-50 KwikPen) 100 unit/mL (50-50) inpn penIndications:Type 2 diabetes mellitus with other diabetic kidney complication, with long-term current use of insulin (HC) Inject subcutaneous. Takes 50 with breakfast, 36 with lunch and 50 with dinner. 0 10/28/2022 Active amLODIPine (Norvasc) 5 mg tabletIndications:HT N (hypertension) Take 1 Tablet (5 mg) by mouth once daily. 90 Tablet 4 02/19/2023 Active Lantus Solostar U-100 Insulin 100 unit/mL (3 mL) pen Inject 15 units subcutaneous before bedtime. 12/01/2022 Active fluticasone/umeclidi n/vilanter (TRELEGY ELLIPTA INHL) Inhale by mouth. Activ e empagliflozin (Jardiance) 10 mg tablet Take 10 mg by mouth once daily. Active famotidine (PEPCID) 40 mg tablet Take 20 mg by mouth at bedtime. Active cyanocobalamin (VITAMIN B12) as quarter tablet Take 1,000 mcg by mouth once daily. Active Active Problems Problem Noted Date Diagnosed Date Coronary artery disease invo lving [place] coronary artery of [place] heart without angina pectoris 12/06/2020 Mitral valve insufficiency 12/06/2020 Mixed hyperlipidemia 12/06/2020 HTN (hypertension) 12/06/2020 Encounters Date Type Department Care Team Description 10/26/2023 1:48 PM CDT Anesthesia Event [address] [address] Rabia Huston MD Dahl, Ashley Rose Dragavon, MD 10/26/2023 1:37 PM CDT - 10/26/2023 2:39 PM CDT Surgery [place] [address] [address] [place] [address] Nils Manzano MD CYSTOSCOPY, BLADDER BIOPSY, FULGURATION 10/26/2023 12:04 PM CDT - 10/26/2023 3:40 PM CDT [address] Encounter [address] [place] [address] Nils Manzano MD Discharge Disposition: Home Self Care 10/25/2023 Travel 10/14/2023 Orders Only [facility] Scanner 1 scan: (1-Ord) [place], MULTIPLE RESULTS, 10/14/2023 from Last 3 Months Immunizations Name Administration Dates Next Due COVID-19 [...] Sign Reading Time Taken Comments Blood Pressure 168/68 10/26/2023 3:15 PM CDT Pulse 72 10/26/2023 3:15 PM CDT Temperature 36.8 ??C (98.2 ??F) 10/26/2023 2:32 PM CD T Respiratory Rate 16 10/26/2023 3:15 PM CDT Oxygen Saturation 96% 10/26/2023 3:15 PM CDT Inhaled Oxygen Concentration - - Weight 97.9 kg (215 lb 13.3 oz) 024 12:45 PM CDT Height 170.2 cm (5' 7) 10/26/2023 12:4 5 PM CDT Body Mass Index 33.8 10/26/2023 12:45 PM CDT Plan of Treatment Health Maintenance Due Date Last Done Comments Depression screening for age 12+ 1957 BMI (ht and wt on same day) for age 18+ 12/03/1963 Hepatitis C screening for ag e 18-79 12/03/1963 DEXA/DXA scan for age 65+ 2010 Medicare Wellness for age 65+ 2010 Tetanus booster 09/16/2021 09/17/2011 COVID-19 vaccine series ( season) 2023 05/03/2023, 03/31/2022, 04/26/2021, Additional history exists Influenza for age 65+ 02/06/2024 03/31/2022, 021 Tdap Completed 09/17/2011 Pneumococcal series for age 65+ Completed 7, 09/24/2011 Zoster (shingles) series for age 50+ Completed 04/09/2020, 01/26/2020, 10/12/2014 Procedures Procedure Name Priority Date/Time Associated Diagnosis Comments GLUCOSE METER Timed 10/26/2023 2:59 PM CDT PATH TISSUE EXAM Today 10/26/2023 2:12 PM CDT CYSTOSCOPY BIOPSY BLADDER 10/26/2023 1:38 PM CDT MALIGNANT TUMOR OF URINARY BLADDER Case Notes 30 MINS- T/F DORSAL LITHOTOMY Special Needs HT 5'7 WT 98 kg BMI 33.85 Type 2 diabetic with insulinASA 10/17A1C 8.7 on 10/13 okay per H&PNot started Jardiance yet GLUCOSE METER Timed 10/26/2023 1:00 PM CDT SCAN-LABORATORY REPORT 10/14/2023 12:00 AM CDT from Last 3 Months Results * (ABNORMAL) GLUCOSE METER (10/26/2023 2:59 PM CDT) Only the most recent of2 resultswithin the time period is included. GLUCOSE METER 193(H) 65 - 100 mg/dL 10/26/2023 3:03 PM CDT [facility] Blood BLOOD SPECIMEN / Unknown 10/26/2023 2:59 PM CDT 10/26/2023 3:03 PM CDT Nils Manzano MD CHEMISTRY [facility] SENDOUT INTERNAL ZIP [id number] [place] [address] * PATH TISSUE EXAM (10/26/2023 2:12 PM CDT) Case Report Pathology Report ?Case: [id number] ? Authorizing Provider: ??Nils Manzano MD ?? Collected: ? 10/26/2023 1412 ? Ordering Location: ? [facility] ?Received: ?10/26/2023 1429 ? Pathologist: ? Real Dunn MD ? Specimen: ?Bladder Biopsy ? 10/29/2023 6:55 AM T [facility] [employer] [facility] Final Diagnosis A) URINARY BLADDER, POSTERIOR TO LEFT URETERAL ORIFICE SCAR, BIOPSY: 1. Non-invasive papillary urothelial carcinoma, low grade 2. Sampling includes: Urothelium, lamina propria 3. Negative for associated flat carcinoma in situ 10/29/2023 6:55 AM [facility] Comment Case seen in consultation with Dr. Hurley. 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 Now with bladder lesion 1 cm posterior to resection site of right ureteral orifice 10/29/2023 6:55 AM [facility] Gross Description A) Received fresh labeled with the patient's name and bladder biopsy, is a 0.4 x 0.3 x 0.2 cm pink soft tissue entirely submitted in 1 cassette. Placed in formalin at 1429 on 10/26/2023 DPL 10/26/2023 10/29/2023 6:55 AM [facility] Microscopic Description The final diagnosis is based on microscopic examination of appropriate sections of all specimens. 10/29/2023 6:55 AM [facility] Additional Information Interpreted at [facility], Central Laboratory - [address], [place] [address] 10/29/2023 6:55 AM CDT [facility] Biopsy (Bladder Biopsy) 10/26/2023 2:12 PM CDT 10/26/2023 2:29 PM CDT Nils Manzano MD PATHOLOGY/CYTOLOG Y [facility] [address] [place] [address], [facility] SENDOUT INTERNAL ZIP [id number] [place] [address] * SCAN-LABORATORY REPORT (10/14/2023 12:00 AM CDT) Scanner OTHER from Last 3 Months Advance Directives * Full Code (Latest Code Status on File) Date Activated Date Inactivated Comments 10/26/2023 12:29 PM 10/26/2023 5:58 PM Should be d iscussed pre operatively with anesthesia or surgeon Question Answer Comments Code Status Discussion: Not Discussed Care Teams Truck Bracer Relationship Specialty Start Date End Date Vaishali Arreaga MD [address] [place] [address] PCP - General Emergency Medicine 12/05/20
--- OUTSIDE RECORDS SUMMARY | 2024-01-05 15:29 | XMS_ITS | Clinical Summary ---
Author Organization [place] Address [address] [place] [address] Care Team Providers Care Aircraft Time Clerk Name Role Phone Clinic, [facility] [place] [facility] Pro vider Allergies No known [...] (once per calendar year) 2023 INFLUENZA VACCINE (#1) 2024 , 04/17/2021 GLUCOSE 12/31/2025 12/31/2022, 12/31/2022 Pneumococcal Vaccine: [...] LAB - BLOOD ORD ERABLES RH LABORATORY [facility] Acute Care Lab [address] [facility] Lab (1st floor, no room number) [place] [address], [facility] [phone] from Last 3 Months or Most Recently Relevant to Health Maintenance Care Teams Aircraft Time Clerk Relationship Specialty Start Date End [facility] [address] [place] [address] PCP - General 12/31/22
--- OUTSIDE RECORDS SUMMARY | 2024-01-05 15:29 | XMS_ITS | Referral Summary ---
Author Organization [place] Address [address] [place] [address] Care Team Providers Care Dust Handler Name Role Phone Clinic, [facility] [place] [facility] Pro vider Allergies No known [...] >60 mL/min/1.7 3m2 12/31/2022 11:22 AM CDT LABORATORY Blood BLOOD SPECIMEN / Unknown Venipuncture / Unknown 12/31/2022 10:57 AM CDT 12/31/2022 11:02 AM CDT Tao Hogue MD LAB - BLOOD ORD ERABLES LABORATORY [facility] Acute Care Lab [address] Lab (1st floor, no room number) [place] [address], [facility] [phone] from Last 3 Months or Most Recently Relevant to Health Maintenance Care Teams Dust Handler Relationship Specialty Start Date End Date Clinic, [facility] [address] [place] [address] PCP - General 12/31/22
== END 2024-01-05 15:24 | disposition home or self-care (01) ==
PROVIDERS: PCP Emergency Medicine; Visit Provider Emergency Medicine
DX: I49.3 Ventricular premature depolarization (principal); E11.9 Type 2 diabetes mellitus without complications; D50.9 Iron deficiency anemia, unspecified; E66.9 Obesity, unspecified; I10 Essential (primary) hypertension; E78.5 Hyperlipidemia, unspecified; E53.8 Deficiency of other specified B group vitamins; Z79.4 Long term (current) use of insulin
CPT/HCPCS: 80053; 84443

== ENCOUNTER 2024-04-13 15:30 | Outpatient (CLI) | payer MEDICARE, OTHER, SELFPAY ==
--- OUTSIDE RECORDS SUMMARY | 2024-04-13 15:33 | XMS_ITS | Clinical Summary ---
Author Organization [place] Address [address] [place] [address] Care Team Providers Care Landscape Drafter Name Role Phone Clinic, [facility] [place] [facility] Pro vider Allergies No known active allergies Medications No known medications Social History Tobacco Use Types Packs/Day Years Used Date Smoking Tobacco: Never Assessed Adolescent Education Answer Date Record ed Getting School Help Needed Not on file 02/27 Comments No Sex and Gender Information Value Date Recorded Sex Assigned at Not on file Legal Sex Female 10:41 AM CDT Gender Identity Not on file Sexual Orientation [...] 1945 HEPATITIS C SCREENING 12/03/1963 LIPID 1985 FALL RISK ASSESSMENT 2010 MEDICARE ANNUAL WELLNESS VISIT 2010 RSV VACCINE (1 - 1-dose 75+ series) 2020 DTAP/TDAP/TD IMMUNIZATION (2 - Td or Tdap) 09/16/2021 09/17/2011 PHQ-2 (once per calendar year) 2023 COVID-19 Vaccine (3 - 2023-2 5 season) 2024 04/26/2021, 07/24/2020 INFLUENZA VACCINE (#1) 2024 2, 04/17/2021 GLUCOSE 12/31/2025 12/31/2022, 12/31/2022 Pneumococcal Vaccine: [...] 10:57 AM CDT 12/31/2022 11:02 AM CDT us Tao Hogue MD LAB - BLOOD ORDERABLES Final Result RH LABORATORY [facility] Acute Care Lab [address] [facility] Lab (1st floor, no room number) [place] [address], [facility] [phone] from Last 3 Months or Most Recently Relevant to Health Maintenance Insurance MEDICARE [facility] Care Teams Landscape Drafter Relationship Specialty Start Date End Date [facility], [facility] [address] [place] [address] (work) PCP - General 12/31/22
--- OUTSIDE RECORDS SUMMARY | 2024-04-13 15:33 | XMS_ITS | Referral Summary ---
Author Organization [place] Address [address] [place] [address] Care Team Providers Care Welder Apprentice Gas Name Role Phone Clinic, [facility] [place] [facility] Pro vider Allergies No known [...] MD LAB - BLOOD ORDERABLES Final Result LABORATORY [facility] Acute Care Lab [address] [facility] [place] Lab (1st floor, no room number) [place] [address], [facility] [phone] from Last 3 Months or Most Recently Relevant to Health Maintenance Insurance MEDICARE [facility] Care Teams Welder Apprentice Gas Relationship Specialty Start Date End Date [facility] [place] [facility] [address] [place] [address] PCP - General 12/31/22
--- OUTSIDE RECORDS SUMMARY | 2024-04-13 15:33 | XMS_ITS | Clinical Summary ---
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 0.1 Tablet 12/31/2020 Active escitalopram oxalate (LEXAPRO) 5 mg tablet Take 1 Tablet (5 mg) by mouth every morning. 0 10/13/2021 Active insulin lispro protamine-lispro, 50-50, (HumaLOG Mix 50-50 KwikPen) 100 unit/mL (50-50) inpn penIndications:Type 2 diabetes mellitus with other diabetic kidney complication, with long-term current use of insulin (HC) Inject subcutaneous. Takes 50 with breakfast, 36 with lunch and 50 with dinner. 0 10/28/2022 Active amLODIPine (Norvasc) 5 mg tabletIndications:H TN (hypertension) Take 1 Tablet (5 mg) by mouth once daily. 90 Tablet 4 02/19/2023 Active Lantus Solostar U-100 Insulin 100 unit/mL (3 mL) pen Inject 15 units subcutaneous before bedtime. 12/01/2022 Active fluticasone/umeclid in/vilanter (TRELEGY ELLIPTA INHL) Inhale by mouth. Active empagliflozin (Jardiance) 10 mg tablet Take 10 mg by mouth once daily. Active cyanocobalamin (VITAMIN B12) as quarter tablet Take 1,000 mcg by mouth once daily. Active famotidine (PEPCID) 20 mg tablet Take 20 mg by mouth once daily. Active levothyroxine (SYNTHROID) 137 mcg tablet Take 1 Tablet by mouth once daily. Active metoprolol succinate (TOPROL XL) 50 mg sustained-release tabletIndications:H TN (hypertension) Take 1 Tablet (50 mg) by mouth once daily. 90 Tablet 4 03/20/2024 Active metoprolol succinate (TOPROL XL) 25 mg Sustained-Release tabletIndications:H TN (hypertension) Take 1 Tablet (25 mg) by mouth once daily. 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 angina pectoris 12/06/2020 Mitral valve insufficiency 12/06/2020 Mixed hyperlipidemia 12/06/2020 HTN (hypertension) 12/06/2020 Encounters Date Type Department Care Team Description 04/12/2024 Telephone [facility] [address] [facility] [address] [place] [address] Dany Holly MBBS Results (ultra sound) 03/20/2024 2:00 PM CDT Office Visit [facility] [address] [facility] [address] [place] [address] Kirill Dubon MD Follow Up (Annual f/u - had EKG at [facility] on 01/05/24, will be faxing over EKG and notes from visit/Did not review medications per radha's request /Took vitals ) 03/20/2024 Travel 03/17/2024 Telephone [facility] [address] [facility] [address] [place] [address] Dany Holly MBBS Appointment (03/22/24 appt ) 03/06/2024 Telephone [facility] [address] [facility] [address] [place] [address] Dany Holly MBBS Referral (Change to Call) 02/11/2024 2:30 PM CDT Ancillary Procedure [facility] [address] [facility] [address] [place] [address] 02/11/2024 Travel 02/11/2024 Telephone [facility] [address] [facility] [address] [place] [address] Dany Holly MBBS Appointment 02/08/2024 Telephone [facility] [address] [facility] [address] [place] [address] Dany Holly MBBS Results 02/04/[address] [facility] [address] [place] [address] Nils Mnazano MD 02/03/2024 Telephone [facility] [address] [address] Dany Holly MBBS Scheduling (Labs & Follow-up) 02/02/2024 3:00 PM CDT [facility] Visit [facility] [id number] [place] [address] [address] [place] [address] Dany Holly MBBS Consult (R80.9 (ICD-10-CM) - Proteinuria, unspecified/E11.9 (ICD-10-CM) - Type 2 diabetes mellitus without complications (HC)/Z79.4 (ICD-10-CM) - custodial (current) use of insulin (HC)/N18.9 (ICD-10-CM) - Chronic kidney disease, unspecified /) 02/02/2024 Travel 01/27/2024 Transcribe Orders [facility] [address] [facility] [address] [place] [address] Vaishali Arreaga MD 01/13/2024 Orders Only [facility] [address] [facility] [address] [place] [address] Vaishali Arreaga MD 1 scan: <No description> 01/13/2024 Transcribe Orders [facility] [id number] [place] [address] [address] [place] [address] Vaishali Arreaga MD from Last 3 Months Immunizations Name Administration [...] Sign Reading Time Taken Comments Blood Pressure 156/85 03/20/2024 2:01 PM CDT Pulse 91 03/20/2024 2:01 PM CDT Temperature 36.8 ??C (98.2 ??F) 10/26/2023 2:32 PM CD T Respiratory Rate 16 10/26/2023 3:15 PM CDT Oxygen Saturation 90% 03/20/2024 2:01 PM CDT Inhaled Oxygen Concentration - - Weight 99.4 kg (219 lb 3.2 oz) 03/20/2024 2:01 P M CDT Height 170.2 cm (5' 7) 03/20/2024 2:01 PM CDT Body Mass Index 34.33 03/20/2024 2:01 PM CDT Plan of Treatment Upcoming Encounters Date Type Department Care Team (Late st Contact Info) Description 04/21/2024 2:30 PM 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 Ancillary Procedure [facility] [address] [place] [address] 04/26/2024 2:00 PM 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 Ancillary Procedure [facility] [address] [facility] [address] [place] [address] Health Maintenance Due Date Last Done Comments Depression screening for age 12+ 1957 Hepatitis C screening for ag e 18-79 12/03/1963 DEXA/DXA scan for age 65+ 2010 Medicare Wellness for age 65+ 2010 RSV vaccine for adults or (1 - 1-dose 75+ series) 2020 Tetanus booster 09/16/2021 09/17/2011 COVID-19 vaccine series ( season) 2024 05/03/2023, 03/31/2022, 04/26/2021, Additional history exists Influenza for age 65+ 02/06/2024 03/31/2022, 021 BMI (ht and wt on same day) for age 18+ 03/20/2025 03/20/2024 Tdap Completed 09/17/2011 Pneumococcal series for age 65+ Completed 7, 09/24/2011 Zoster (shingles) series for age 50+ Completed 04/09/2020, 01/26/2020, 10/12/2014 Procedures Procedure Name Priority Date/Time Associated Diagnosis Comments US RENAL AND BLADDER COMPLETE Routine 02/11/2024 3:03 PM CDT buttermaker (current) use of insulin (HC) Stage 3 chronic kidney disease, unspecified whether stage 3a or 3b CKD (HC) URINALYSIS MICROSCOPIC Routine 5:07 PM CDT custodial (current) use of insulin (HC) Stage 3 chronic kidney disease, unspecified whether stage 3a or 3b CKD (HC) IMMUNOFIXATION ELP, URINE Routine 02/02/2024 5:07 PM CDT buttermaker (current) use of insulin (HC) Stage 3 chronic kidney disease, unspecified whether stage 3a or 3b CKD (HC) URINE ALBUMIN TO CREATININE RATIO, RANDOM Routine 02/02/2024 5:07 PM CDT buttermaker (current) use of insulin (HC) Stage 3 chronic kidney disease, unspecified whether stage 3a or 3b CKD (HC) UA W/ SEDIMENT EXAM REFLEXED PER CRITERIA Routine 02/02/2024 5:07 PM CDT buttermaker (current) use of insulin (HC) Stage 3 chronic kidney disease, unspecified whether stage 3a or 3b CKD (HC) PROTEIN/CREAT RATIO,URINE Routine 02/02/2024 5:07 PM CDT custodial (current) use of insulin (HC) Stage 3 chronic kidney disease, unspecified whether stage 3a or 3b CKD (HC) IMMUNOFIXATION,SERUM Routine 02/02/2024 4:58 PM CDT buttermaker (current) use of insulin (HC) Stage 3 chronic kidney disease, unspecified whether stage 3a or 3b CKD (HC) CBC WITH AUTO DIFFERENTIAL Routine 02/02/2024 4:58 PM CDT buttermaker (current) use of insulin (HC) Stage 3 chronic kidney disease, unspecified whether stage 3a or 3b CKD (HC) HEMOGLOBIN A1C MONITORING (POCT) Routine 02/02/2024 4:58 PM CDT custodial (current) use of insulin (HC) Stage 3 chronic kidney disease, unspecified whether stage 3a or 3b CKD (HC) ELP AND FREE LIGHT CHAINS W REFLEX, BLOOD Routine 02/02/2024 4:58 PM CDT buttermaker (current) use of insulin (HC) Stage 3 chronic kidney disease, unspecified whether stage 3a or 3b CKD (HC) URIC ACID Routine 02/02/2024 4:58 PM CDT custodial (current) use of insulin (HC) Stage 3 chronic kidney disease, unspecified whether stage 3a or 3b CKD (HC) COMP METABOLIC PANEL Routine 02/02/2024 4:58 PM CDT buttermaker (current) use of insulin (HC) Stage 3 chronic kidney disease, unspecified whether stage 3a or 3b CKD (HC) PTH,INTACT Routine 02/02/2024 4:58 PM CDT buttermaker (current) use of insulin (HC) Stage 3 chronic kidney disease, unspecified whether stage 3a or 3b CKD (HC) FERRITIN Routine 02/02/2024 4:58 PM CDT custodial (current) use of insulin (HC) Stage 3 chronic kidney disease, unspecified whether stage 3a or 3b CKD (HC) IRON PLUS IRON BINDING CAP Routine 02/02/2024 4:58 PM CDT custodial (current) use of insulin (HC) Stage 3 chronic kidney disease, unspecified whether stage 3a or 3b CKD (HC) CBC WITH AUTO DIFFERENTIAL Routine 02/02/2024 4:58 PM CDT custodial (current) use of insulin (HC) Stage 3 chronic kidney disease, unspecified whether stage 3a or 3b CKD (HC) PHOSPHORUS Routine 02/02/2024 4:58 PM CDT custodial (current) use of insulin (HC) Stage 3 chronic kidney disease, unspecified whether stage 3a or 3b CKD (HC) from Last 3 Months Results * US RENAL AND BLADDER COMPLETE (02/11/2024 3:03 PM CDT) Anatomical Region Laterality Modality Abdomen, AORTA, KIDNEYS Ultrasou nd 02/11/2024 4:14 PM CDT Impressions 02/11/2024 4:14 PM CDT Prior right nephrectomy. No left renal masses or hydronephrosis. Dictated by Miri Aguiar MD @ 02/11/2024 4:14:53 PM (Electronically Signed) Narrative 02/11/2024 4:14 PM CDT For Patients: ??As a result of the Century Cures Act, medical imaging exams and procedure reports are released immediately into your electronic medical record. ??You may view this report before your referring provider. ??If you have questions, please contact your health care provider. INDICATION: CKD. TECHNIQUE: Ultrasound renal and bladder complete. ??Vu-scale and color Doppler sonographic images were acquired of the kidneys and urinary bladder. COMPARISON: None. FINDINGS: Right kidney: Prior right nephrectomy Left kidney: 12.6 x 5.6 x 6.3 cm. ??Normal echotexture and cortex. ??No suspicious masses, stones, or hydronephrosis. Bladder: Decompressed. Procedure Note Miri Aguiar MD - 02/11/2024 For Patients: As a result of the 21st Century Cures Act, medical imagingexams and procedure reports are released immediately into your electronicmedical record. You may view this report before your referring provider.If you have questions, please contact your health care provider. INDICATION: CKD. TECHNIQUE: Ultrasound renal and bladder complete. Vu-scale and color Dopplersonographic images were acquired of the kidneys and urinary bladder. COMPARISON: None. FINDINGS: Right kidney: Prior right nephrectomy Left kidney: 12.6 x 5.6 x 6.3 cm. Normal echotexture and cortex. Nosuspicious masses, stones, or hydronephrosis. Bladder: Decompressed. IMPRESSION: Prior right nephrectomy. No left renal masses or hydronephrosis. Dictated by Miri Aguiar MD @ 02/11/2024 4:14:53 PM (Electronically Signed) Dany COOK US * (ABNORMAL) IMMUNOFIXATION ELP, URINE (02/02/2024 5:07 PM CDT) IFIX INTERP,URINE Immunofixation on urine shows no monoclonal protein detected and no free light chains detected. Interpreted and electronically signed by: Nya Moore MD 02/08/2024 4:15 PM CDT [facility] PROTEIN QUANT,RAND URINE 162(H) 1 - 14 mg/dL 02/08/2024 4:15 PM CDT [facility] Urine URINE SPECIMEN / Unknown Non-Blood / Unknown 02/02/2024 5:07 PM CDT 02/02/2024 5:07 PM CDT Dany COOK [facility] [address] [place] [address], [place] * (ABNORMAL) URINALYSIS MICROSCOPIC (02/02/2024 5:07 PM CDT) RBC 0-2 0-2, None Seen /HPF 02/02/2024 5:17 PM CDT [facility] WBC 0-2 0-2, 3-5, None Seen /HPF 02/02/2024 5:17 PM CDT [facility] BACTERIA Few None Seen, Rare, Few Bacteria/ HPF 02/02/2024 5:17 PM CDT [facility] EPITHELIAL CELLS Moderate(A ) None Seen, Few Epi/HPF 02/02/2024 5:17 PM CDT [facility] Urine URINE SPECIMEN / Unknown Non-Blood / Unknown 02/02/2024 5:07 PM CDT 02/02/2024 5:07 PM CDT Dany DUMONT URINE Performing Organization Address City/[facility]/ZIP Co de Phone Number [facility] [address] [place] [address], [place] * (ABNORMAL) PROTEIN/CREAT RATIO,URINE (02/02/2024 5:07 PM CDT) PROTEIN QUANT,RAND URINE 162(H) 1 - 14 mg/dL 02/03/2024 2:58 AM CDT [facility] CREAT,RANDOM URINE 151.0 28.0 - 217.0 mg/dL 02/03/2024 2:58 AM CDT [facility] PROT/CREAT RATIO,UR 1.1(H) <0.2 02/03/2024 2:58 AM CDT [facility] Urine URINE SPECIMEN / Unknown Non-Blood / Unknown 02/02/2024 5:07 PM CDT 02/02/2024 5:07 PM CDT Dany COOK URINE [facility] [address] [place] [address], [place] * (ABNORMAL) URINE ALBUMIN TO CREATININE RATIO, RANDOM (02/02/2024 5:07 PM CDT) ALB RAND URINE 1,060.0 mg/L 02/03/2024 3:34 AM CDT [facility] CREATININE,URIN E 1.51 g/L 02/03/2024 3:34 AM CDT [facility] ALBUMIN TO CREATININE RATIO,RAND UR 702.0(H) <30.0 mg/g creat 02/03/2024 3:34 AM CDT [facility] Urine URINE SPECIMEN / Unknown Non-Blood / Unknown 02/02/2024 5:07 PM CDT 02/02/2024 5:07 PM CDT [facility] - 02/03/2024 3:34 AM CDT If Albumin to Creatinine Ratio is elevated, consider the following: ? Elevations seen with incipient nephropathy associated ?? with diabetes mellitus or hypertension. Stress, exercise,hematuria, ?? and urinary tract infection may also produce elevated results. If clinically indicated, confirm with ?24 Hour Albumin to Creatinine Ratio. ?? Dany COOK URINE [facility] [address] [place] [address], [place] * (ABNORMAL) UA W/ SEDIMENT EXAM REFLEXED PER CRITERIA (02/02/2024 5:07 PM CDT) COLOR Yellow Yellow Color 02/02/2024 5:17 PM CDT [facility] CLARITY Clear Clear Clarity 02/02/2024 5:17 PM CDT [facility] SPECIFIC GRAVITY,URINE 1.025 1.010, 1.015, 1.020, 1.025 02/02/2024 5:17 PM CDT [facility] PH,URINE 5.5 6.0, 7.0, 8.0, 5.5, 6.5, 7.5, 8.5 02/02/2024 5:17 PM CDT [facility] UROBILINOGEN, QUALITATIVE Normal Normal EU/dl 02/02/2024 5:17 PM CDT [facility] PROTEIN, URINE >=300(A) Negative mg/dL 02/02/2024 5:17 PM CDT [facility] GLUCOSE, URINE Negative Negative mg/dL 02/02/2024 5:17 PM CDT [facility] KETONES,URINE Negative Negative mg/dL 02/02/2024 5:17 PM CDT [facility] BILIRUBIN,URI NE Negative Negative 02/02/2024 5:17 PM CDT [facility] OCCULT BLOOD,URINE Negative Negative 02/02/2024 5:17 PM CDT [facility] NITRITE Negative Negative 02/02/2024 5:17 PM CDT [facility] LEUKOCYTE ESTERASE Negative Negative 02/02/2024 5:17 PM CDT [facility] Urine URINE SPECIMEN / Unknown Non-Blood / Unknown 02/02/2024 5:07 PM CDT 02/02/2024 5:07 PM CDT Dany COOK URINE [facility] [address] [place] [id number], [place] * (ABNORMAL) ELP AND FREE LIGHT CHAINS W REFLEX, BLOOD (02/02/2024 4:58 PM CDT) ELP,ALBUMIN 3.90 3.31 - 5.31 g/dL 02/04/2024 4:57 PM CDT [facility] ELP,ALPHA 1 0.34 0.19 - 0.42 g/dL 02/04/2024 4:57 PM CDT [facility] ELP,ALPHA 2 0.93 0.44 - 1.03 g/dL 02/04/2024 4:57 PM CDT [facility] ELP,GAMMA 1.38 0.59 - 1.46 g/dL 02/04/2024 4:57 PM CDT [facility] ELP,BETA 1.05 0.52 - 1.05 g/dL 02/04/2024 4:57 PM CDT [facility] MONOCLONAL PEAK 1 0.21 <=0.00 g/dL 02/04/2024 4:57 PM CDT [facility] KAPPA FREE LIGHT CHAIN, S 7.71(H) 0.33 - 1.94 mg/dL 02/04/2024 4:57 PM CDT [facility] LAMBDA FREE LIGHT CHAIN, S 4.78(H) 0.57 - 2.63 mg/dL 02/04/2024 4:57 PM CDT [facility] KAPPA/LAMBDA FLC RATIO 1.61 0.26 - 1.65 02/04/2024 4:57 PM CDT [facility] ELP INTERP,SERUM Monoclonal protein detected in gamma region, confirmed by immunofixation. Interpreted and electronically signed by: Nay Moore MD 02/04/2024 4:57 PM CDT [facility] PROTEIN,TOTAL 7.6 6.0 - 8.0 g/dL 02/04/2024 4:57 PM CDT [facility] Blood BLOOD SPECIMEN / Unknown Venipuncture / Unknown 02/02/2024 4:58 PM CDT 02/02/2024 5:13 PM CDT Dany COOK CHEMIS TRY [facility] [address] [place] [address], * (ABNORMAL) CBC WITH AUTO DIFFERENTIAL (02/02/2024 4:58 PM CDT) WHITE BLOOD COUNT 10.7 4.5 - 11.0 thou/cu mm 02/02/2024 5:18 PM CDT [facility] RED BLOOD COUNT 4.48 4.00 - 5.20 mil/cu mm 02/02/2024 5:18 PM CDT [facility] HEMOGLOBIN 13.2 12.0 - 16.0 g/dL 02/02/2024 5:18 PM CDT [facility] HEMATOCRIT 41.3 33.0 - 51.0 % 02/02/2024 5:18 PM CDT [facility] MCV 92 80 - 100 fL 02/02/2024 5:18 PM CDT [facility] MCH 29.5 26.0 - 34.0 pg 02/02/2024 5:18 PM CDT [facility] MCHC 32.0 32.0 - 36.0 g/dL 02/02/2024 5:18 PM CDT [facility] RDW 13.9 11.5 - 15.5 % 02/02/2024 5:18 PM CDT [facility] PLATELET COUNT 313 140 - 440 thou/cu mm 02/02/2024 5:18 PM CDT [facility] MPV 10.8 6.5 - 11.0 fL 02/02/2024 5:18 PM CDT [facility] % NEUT 79.1 % 02/02/2024 5:18 PM CDT [facility] % LYMPH 14.2 % 02/02/2024 5:18 PM CDT [facility] % MONO 02/02/2024 5:18 PM CDT [facility] % EOS 02/02/2024 5:18 PM CDT [facility] % BASO 02/02/2024 5:18 PM CDT [facility] ABSOLUTE NEUTROPHILS 8.5(H) 1.7 - 7.0 thou/cu mm 02/02/2024 5:18 PM CDT [facility] ABSOLUTE LYMPHOCYTES 1.5 0.9 - 2.9 thou/cu mm 02/02/2024 5:18 PM CDT [facility] ABSOLUTE MONOCYTES 02/02/2024 5:18 PM CDT [facility] ABSOLUTE EOSINOPHILS 02/02/2024 5:18 PM CDT [facility] ABSOLUTE BASOPHILS 02/02/2024 5:18 PM CDT [facility] Blood BLOOD SPECIMEN / Unknown Venipuncture / Unknown 02/02/2024 4:58 PM CDT 02/02/2024 5:13 PM CDT Dany COOK HEMATO LOGY [facility] [address] [id number], * IMMUNOFIXATION,SERUM (02/02/2024 4:58 PM CDT) IGG 1,248.55 610.30 - 1,616.00 mg/dL 02/04/2024 4:57 PM CDT [facility] IGA 465.92 84.50 - 499.00 mg/dL 02/04/2024 4:57 PM CDT [facility] IGM 157.73 35.00 - 242.00 mg/dL 02/04/2024 4:57 PM CDT [facility] IFIX INTERP,SERUM Immunofixation on serum shows complete monoclonal protein IgG kappa with possible trace free lambda light chains. The finding of a monoclonal protein may be associated with a lymphoproliferative or plasma cell disorder. Consider serum free light chains, urine protein electrophoresis and urine immunofixation to further evaluate, if not already performed. Interpreted and electronically signed by: Nay Moore MD 02/04/2024 4:57 PM CDT [facility] Blood BLOOD SPECIMEN / Unknown Venipuncture / Unknown 02/02/2024 4:58 PM CDT 02/02/2024 5:13 PM CDT Dany COOK CHEMIS TRY [facility] [address] [place] [address], [place] * IRON PLUS IRON BINDING CAP (02/02/2024 4:58 PM CDT) IRON 48 37 - 145 ug/dL 02/03/2024 3:25 AM CDT [facility] UIBC (UNSATURATED) 230 112 - 347 ug/dL 02/03/2024 3:25 AM CDT [facility] IRON BINDING CAPACITY 278 250 - 400 ug/dL 02/03/2024 3:25 AM CDT [facility] IRON,% SATURATION 17 14 - 50 % 02/03/2024 3:25 AM CDT [facility] Blood BLOOD SPECIMEN / Unknown Venipuncture / Unknown 02/02/2024 4:58 PM CDT 02/02/2024 5:13 PM CDT Dany COOK CHEMIS TRY Performing Organization Address [facility] Co de Phone Number [facility] [address] [place] [address], [place] * (ABNORMAL) URIC ACID (02/02/2024 4:58 PM CDT) URIC ACID 9.5(H) 2.4 - 5.7 mg/dL 02/03/2024 4:00 AM CDT [facility] Blood BLOOD SPECIMEN / Unknown Venipuncture / Unknown 02/02/2024 4:58 PM CDT 02/02/2024 5:13 PM CDT Dany COOK CHEMIS TRY Performing Organization Address City/[facility]/ZIP Co de Phone Number [facility] [address] [place] [address], [place] * PHOSPHORUS (02/02/2024 4:58 PM CDT) PHOSPHORUS 3.5 2.5 - 4.5 mg/dL 02/03/2024 3:25 AM CDT [facility] Blood BLOOD SPECIMEN / Unknown Venipuncture / Unknown 02/02/2024 4:58 PM CDT 02/02/2024 5:13 PM CDT Dany COOK CHEMIS TRY Performing Organization Address [facility] Co de Phone Number [facility] [address] [place] [address], * (ABNORMAL) PTH,INTACT (02/02/2024 4:58 PM CDT) CALCIUM 9.6 8.8 - 10.2 mg/dL 02/03/2024 3:26 AM CDT [facility] PTH,INTACT 74.3(H) 15.0 - 69.0 pg/mL 02/03/2024 3:26 AM CDT [facility] Blood BLOOD SPECIMEN / Unknown Venipuncture / Unknown 02/02/2024 4:58 PM CDT 02/02/2024 5:13 PM CDT Dany COOK SEND O UTS Performing Organization Address [facility] Co de Phone Number [facility] [address] [place] [address], * (ABNORMAL) HEMOGLOBIN A1C MONITORING (POCT) (02/02/2024 4:58 PM CDT) HEMOGLOBIN A1C MONITORING (POCT) 8.7(H) <=6.4 % 02/02/2024 5:47 PM CDT [facility] Blood BLOOD SPECIMEN / Unknown Venipuncture / Unknown 02/02/2024 4:58 PM CDT 02/02/2024 5:13 PM CDT Narrative [facility] - 02/02/2024 5:47 PM CDT ? (<=6.9%) ? Indicates good control ? (7.0% to 7.9%) ? Indicates fair control ? (>=8.0%) ? Indicates poor control ?? NOTE: ??These thresholds are guidelines and ?individual targets may vary. Falsely low levels may be seen with: Recent Transfusion, Recent Significant Blood Loss, Hemolytic Diseases, or Falsely elevated levels may be seen with: Untreated Anemias, Splenectomy ? Dany COOK CHEMIS TRY Performing Organization Address City/[facility]/ZIP Co de Phone Number [facility] [address] [place] [address], * FERRITIN (02/02/2024 4:58 PM CDT) Pathologist [facility] FERRITIN 92.3 15.0 - 150.0 ng/mL 02/03/2024 3:25 AM CDT [facility] Blood BLOOD SPECIMEN / Unknown Venipuncture / Unknown 02/02/2024 4:58 PM CDT 02/02/2024 5:13 PM CDT Dany COOK CHEMIS TRY [facility] [address] [place] [id number], * (ABNORMAL) COMP METABOLIC PANEL (02/02/2024 4:58 PM CDT) Pathologist [facility] SODIUM 142 136 - 145 mmol/L 02/03/2024 3:25 AM CDT [facility] POTASSIUM 4.7 3.5 - 5.1 mmol/L 02/03/2024 3:25 AM CDT [facility] CHLORIDE 101 98 - 107 mmol/L 02/03/2024 3:25 AM CDT [facility] CO2,TOTAL 27 22 - 29 mmol/L 02/03/2024 3:25 AM CDT [facility] ANION GAP 14 5 - 18 02/03/2024 3:25 AM T [facility] GLUCOSE 151(H) 70 - 99 mg/dL 02/03/2024 3:25 AM [facility] CALCIUM 9.6 8.8 - 10.2 mg/dL 02/03/2024 3:25 AM [facility] BUN 32(H) 8 - 23 mg/dL 02/03/2024 3:25 AM [facility] CREATININE 1.23(H) 0.50 - 0.90 mg/dL 02/03/2024 3:25 AM [facility] BUN/CREAT RATIO 26(H) 10 - 20 3:25 AM [facility] eGFR 45(L) >90 mL/min/1.7 3m2 02/03/2024 3:25 AM [facility] Comment:As of 2021, eG FR is calculated by the CKD-EPI creatinine equation without race adjustment. ??eGFR can be influenced by muscle mass, exercise, and diet. ??The reported eGFR is an estimation only and is only applicable if the renal function is stable. ALBUMIN 4.2 4.0 - 4.9 g/dL 02/03/2024 3:25 AM [facility] PROTEIN,TOTAL 7.6 6.0 - 8.0 g/dL 02/03/2024 3:25 AM [facility] BILIRUBIN,TOTAL 0.2 0.0 - 1.2 mg/dL 02/03/2024 3:25 AM [facility] ALK PHOSPHATASE 66 35 - 104 IU/L 02/03/2024 3:25 AM [facility] ALT (SGPT) 18 10 - 35 IU/L 02/03/2024 3:25 AM [facility] AST (SGOT) 24 10 - 35 IU/L 02/03/2024 3:25 AM CDT [facility] Blood BLOOD SPECIMEN / Unknown Venipuncture / Unknown 02/02/2024 4:58 PM CDT 02/02/2024 5:13 PM CDT Dany Finleykimberlyn COOK CHEMIS TRY [facility] [address] [place] [address], from Last 3 Months Advance Directives * Full Code (Latest Code Status on File) Date Activated Date Inactivated Comments 10/26/2023 12:29 PM 10/26/2023 5:58 PM Should be d iscussed pre operatively with anesthesia or surgeon Question Answer Comments Code Status Discussion: Not Discussed Care Teams Linter Tender Relationship Specialty Start Date End Date Vaishali Arreaga MD [address] [place] [address] PCP - General Emergency Medicine 12/05/20
== END 2024-04-13 15:31 | disposition home or self-care (01) ==
LOC: LKVREF 15:31
PROVIDERS: PCP Emergency Medicine; Visit Provider Emergency Medicine
DX: I10 Essential (primary) hypertension (principal)
CPT/HCPCS: 80048

== ENCOUNTER 2024-07-24 14:50 | Outpatient (CLI) | payer MEDICARE, OTHER, SELFPAY | END 2024-07-24 14:51 | disposition home or self-care (01) | LOC: LKVREF 14:51 | PROVIDERS: PCP Physician Assistant Medical; Visit Provider Physician Assistant Medical | DX: R60.0 Localized edema (principal) | CPT/HCPCS: 83880 ==

== ENCOUNTER 2024-08-22 11:30 | Outpatient (RCR) | payer MEDICARE, OTHER, SELFPAY ==
[2024-08-22 11:56] LABS: Basophils Absolute Auto 0.05 K/uL (0.00-0.30); Basophils Percent Auto 0.6 % (0.0-3.0); Eosinophils Absolute Auto 0.22 K/uL (0.00-0.50); Eosinophils Percent Auto 2.8 % (0.0-7.0); Hematocrit 42.6 % (33.0-51.0); Hemoglobin* 13.3 gm/dL (12.0-16.0); Immature Granulocytes Abs Auto 0.01 K/uL (0.00-0.30); Immature Granulocytes Pct Auto 0.1 %; Lymphocytes Percent Auto 10.9 % (20-44); Mean Corpuscular HGB Conc 31 gm/dL (32-36); Mean Corpuscular Hemoglobin 30 pg (26-34); Mean Corpuscular Volume 96 fL (80-100); Neutrophils Percent Auto 74.6 % (42.0-72.0); Platelet Count* 283 K/uL (140-440); RDW Coefficient of Variation % 13.6 % (11.5-15.5); Red Blood Count 4.45 m/uL (4.00-5.20); White Blood Count* 7.92 K/uL (4.50-11.00)
[2024-08-22 11:58] LABS: Slide Review Reflex No
[2024-08-22 12:06] LABS: Chloride* 102 mmol/L (96-114); Sodium* 140 mmol/L (135-149)
[2024-08-22 12:07] LABS: Potassium* 4.4 mmol/L (3.6-5.1)
[2024-08-22 12:09] LABS: Anion Gap 10 mEq/L (7-15); Aspartate Amino Transferase* 23 U/L (12-35); Bilirubin Total* 0.5 mg/dL (0.1-1.5); Blood Urea Nitrogen* 37 mg/dL (7-30); Carbon Dioxide* 28 mmol/L (20-32); Creatinine* 1.3 mg/dL (0.5-1.5); Estimated Glomerular Filt Rate 42 ml/min; Total Protein* 7.2 g/dL (6.0-8.3)
[2024-08-22 12:10] LABS: Alanine Aminotransferase* 18 U/L (4-35); Alkaline Phosphatase* 58 U/L (40-150); Glucose* 145 mg/dL (60-115); Lactate Dehydrogenase* 169 U/L (120-246)
[2024-08-24 00:38] LABS: Beta-2-Microglob Serum/Plasma 5.9 mg/L (<=3.0)
[2024-08-25 03:41] LABS: Albumin 3.24 g/dL (3.75-5.01); Alpha 1 Globulin 0.32 g/dL (0.19-0.46); Alpha 2 Globulin 0.93 g/dL (0.48-1.05); Immunofixation IFE Done; Immunoglobulin A 331 mg/dL (68-408); Immunoglobulin G 811 mg/dL (768-1632); Immunoglobulin M 134 mg/dL (35-263); Kappa Qnt Free Light Chains 66.44 mg/L (3.30-19.40); Kappa/Lambda Light Chain Ratio 1.78 (0.26-1.65); Lambda Qnt Free Light Chains 37.41 mg/L (5.71-26.30); Total Protein, Serum 6.7 g/dL (6.3-8.2)
--- NOTE | 2024-08-29 14:37 | ONC.NURNOTE ---
Pt called yesterday reporting she needed to reschedule her Pet CT on 08/31 d/t a neck injury. She notes she was in urgent care over the weekend and is using prednisone, tylenol and lidocaine patches but is still having significant pain. She reports difficulty lying flat and is concerned about the Pet CT Th. Encouraged pt to see PCP to further work up her neck pain; she is agreeable to this plan. Pet CT rescheduled to 09/14 @ 1700. F/u appt with Dr. Maldonado moved from 09/06 to 09/18. 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 She responds that prefer pt to have Pet CT first, as long as pt is seen in September -- do not want to delay appt any further. Confirmed with pt that if she still needs to cancel Pet CT by 09/14 for her neck or other reason, to keep the 09/18 appt with Erica to review labs, as Dr. Maldonado is out of office later September. Pt verbalizes understanding.
== END 2024-09-17 23:59 | disposition home or self-care (01) ==
LOC: CCIC 11:30
PROVIDERS: Internal Medicine Hematology & Oncology; PCP Emergency Medicine; Referring Provider Emergency Medicine; Visit Provider Physician Assistant
DX: D47.2 Monoclonal gammopathy (principal)
CPT/HCPCS: 36415; 80053; 82232; 82784; 83520; 83615; 84155; 84165; 85025; 86334; 99202; 99204

== ENCOUNTER 2024-09-14 16:43 | Outpatient (CLI) | payer MEDICARE, OTHER, SELFPAY ==
--- NOTE | 2024-09-14 17:00 | CRLHL7_ITS ---
For Patients: As a result of the Century Cures Act, medical imaging exams and procedure reports are released immediately into your electronic medical record. You may view this report before your referring provider. If you have questions, please contact your health care provider. PET CT whole-body History: Surveillance of abnormal plasma protein Technique: The patient was injected with 11.9 millicuries of 18F-FDG (fluorodeoxyglucose). Following the appropriate delay interval, PET imaging from the skull vertex to the toes was obtained in conjunction with a noncontrast CT examination for improved localization and attenuation correction. The fused volume set was reviewed utilizing 3-D reconstruction. Blood glucose: 110 Comparison: CT urogram report only 06/13/2024 Findings: Max SUV within the liver today is 3.8 PET: Brain: This study is inadequate for staging of the brain, if there is concern recommend MR brain with and without gadolinium. Focal increased avidity within the pituitary fossa has a max SUV of 7.[address] correlate. Head and Neck: The paired glandular structures and muscles of the neck are symmetrical. No focal area of increased uptake is identified. Thorax: Normal physiologic distribution within the cardiovascular system. No focal areas of increased uptake are noted in the lung shanks or mediastinum. Abdomen/Pelvis: Focal avidity within the rectum has a max SUV of 18.8 Bones/soft tissues: No focal areas of increased uptake. ADDITIONAL CT findings include moderate atherosclerotic calcifications within the LAD, sequela of prior granulomatous disease, subcentimeter hepatic dome hypodensity too small to characterize statistically a cyst, nodular left adrenal gland, right nephrectomy, hysterectomy, diverticulosis, severe circumferential abdominal aortic atherosclerotic calcifications, left hip arthroplasty, severe degenerative changes within the right hip, and degenerative changes within the shoulders, spine and knees. IMPRESSION: 1. Focal avidity within the rectum, differential diagnosis includes polyp and more aggressive neoplasm. Correlate with updated colonoscopy. 2. Increased avidity within the pituitary fossa is nonspecific, differential diagnosis includes atypical normal variant versus pituitary mass. Recommend appropriate laboratory correlation and MR brain with and without gadolinium. Dictated by Murtaza Melgar MD @ 09/18/2024 10:13:18 AM (Electronically Signed)
== END 2024-09-14 16:44 | disposition home or self-care (01) ==
LOC: RAD 16:45
PROVIDERS: PCP Physician Assistant Medical; Visit Provider Internal Medicine Hematology & Oncology
DX: R77.9 Abnormality of plasma protein, unspecified (principal); E23.6 Other disorders of pituitary gland
CPT/HCPCS: 78816; A9552

== ENCOUNTER 2024-09-18 14:11 | Outpatient (RCR) | payer MEDICARE, OTHER, SELFPAY ==
--- NOTE | 2025-03-07 12:23 | ONC.NURNOTE ---
Transfer of Care Pt called requesting records be sent to [facility]; transferred to Medical Records. She will be establishing with [facility] in [place], closer to home for her. Pt confirmed ok to cancel appts with Dr. Maldonado; 04/25 f/u cancelled.
== END 2025-03-17 23:59 | disposition home or self-care (01) ==
LOC: CCIC 14:11
PROVIDERS: PCP Physician Assistant Medical; Referring Provider Emergency Medicine; Visit Provider Internal Medicine Hematology & Oncology
DX: D47.2 Monoclonal gammopathy (principal); Z85.528 Personal history of other malignant neoplasm of kidney; Z90.5 Acquired absence of kidney; F17.210 Nicotine dependence, cigarettes, uncomplicated; E66.9 Obesity, unspecified
CPT/HCPCS: 99214; G0463

== ENCOUNTER 2024-10-02 11:21 | Outpatient (CLI) | payer MEDICARE, OTHER, SELFPAY ==
--- NOTE | 2024-10-02 13:34 | P.ANES_ITS ---
Anesthesia Charges Start Date/Time Anesthesia Start Date: 10/02/24 Anesthesia Start Time: 12:16 Stop Date/Time Anesthesia Stop Date: 10/02/24 Anesthesia Stop Time: 13:32 Coding CPT Codes CPT Codes: ANES LWR INTST NDSC NOS - 56683 ([id number]) P3 - PATIENT W/SEVERE SYS DISEASE, QK - COMPUTER SCIENCE TEACHER 2-4 CNCRNT ANES PROC, QX - INSURANCE FOLLOW UP REPRESENTATIVE SVC W/ MD MED DIRECTION
--- NOTE | 2024-10-02 13:34 | W.ANESCHARGE ---
Anesthesia Charges Start Date/Time Anesthesia Start Date: 10/02/24 Anesthesia Start Time: 12:16 Stop Date/Time Anesthesia Stop Date: 10/02/24 Anesthesia Stop Time: 13:32 Coding CPT Codes CPT Codes: ANES LWR INTST NDSC NOS - 07738 ([id number]) P3 - PATIENT W/SEVERE SYS DISEASE, QK - DEPUTY DIRECTOR OF NURSING 2-4 CNCRNT ANES PROC, QX - HEALTH OCCUPATIONS TEACHER SVC W/ MD MED DIRECTION
--- NOTE | 2024-10-02 13:41 | P.ANES_ITS ---
Anesthesia Charges Start Date/Time Anesthesia Start Date: 10/02/24 Anesthesia Start Time: 12:16 Stop Date/Time Anesthesia Stop Date: 10/02/24 Anesthesia Stop Time: 13:32 Summary Extremes of Age - Over 70 or under 1: MDA Coding CPT Codes CPT Codes: ANES LWR INTST NDSC NOS - 92438 ([id number]) QK - PRINT PRODUCTION COORDINATOR 2-4 CNCRNT ANES PROC, QX - SUPERVISOR COMPRESSED YEAST SVC W/ MD MED DIRECTION, P3 - PATIENT W/SEVERE SYS DISEASE Additional Codes: Summary - Extremes of Age - Over 70 or under 1: MDA ([id number])
== END 2024-10-02 11:22 | disposition home or self-care (01) ==
LOC: OP CLINIC 11:22
PROVIDERS: PCP Physician Assistant Medical; Visit Provider Surgery
DX: R93.3 Abnormal findings on diagnostic imaging of other parts of digestive tract (principal); D12.2 Benign neoplasm of ascending colon; D12.3 Benign neoplasm of transverse colon; D12.8 Benign neoplasm of rectum; K57.30 Diverticulosis of large intestine without perforation or abscess without bleeding
CPT/HCPCS: 00811; 45385; 88305; 88307; 99100; J2704

== ENCOUNTER 2024-11-16 14:57 | Outpatient (CLI) | payer MEDICARE, OTHER, SELFPAY | END 2024-11-16 14:58 | disposition home or self-care (01) | PROVIDERS: PCP Physician Assistant Medical; Visit Provider Physician Assistant Medical | DX: E11.9 Type 2 diabetes mellitus without complications (principal); Z79.4 Long term (current) use of insulin | CPT/HCPCS: 82043; 82570; 82607 ==

== ENCOUNTER 2024-11-24 11:40 | Outpatient (CLI) | payer MEDICARE, OTHER, SELFPAY | END 2024-11-24 11:41 | disposition home or self-care (01) | LOC: NFLDREF 11-29 01:26 | PROVIDERS: PCP Physician Assistant Medical; Referring Provider Physician Assistant Medical; Visit Provider Physician Assistant Medical | DX: E11.22 Type 2 diabetes mellitus with diabetic chronic kidney disease (principal); N18.9 Chronic kidney disease, unspecified; Z79.4 Long term (current) use of insulin; Z90.5 Acquired absence of kidney | CPT/HCPCS: 80048 ==

== ENCOUNTER 2024-11-28 08:45 | Outpatient (CLI) | payer MEDICARE, OTHER, SELFPAY ==
[2024-11-28] MEDS: SODIUM CHLORIDE 0.9 % (FLUSH) 10 ML SYRINGE IVF (10:57)
[2024-11-28] MEDS: REGADENOSON 0.4 MG/5 ML SYRINGE IVP (10:57)
[2024-11-28 11:09] VITALS: BP 127/69; PULSE 63; RESP 18
--- NOTE | 2024-11-28 11:14 | W.PM.STED ---
Stress Test Note Date Date Seen: 11/28/24 Date of test: 11/28/24 Providers Primary care provider: Blanca Marquez Stress test physician: Yun Solis Stress Test Note Stress test ordered: Lexiscan Indication for test: CAD, PVCs Stress test medicine: Lexiscan Results discussion: Resting EKG: Sinus bradycardia, 56 beats per minute, PVCs seeing. Resting blood pressure: 91/56 Stress test: Patient has consented on ordered stress test of Lexiscan and agrees to proceed. Patient had mild dyspnea with the injection of the regadenoson. She had no chest pain. She maintained her blood pressure, there was no arrhythmia. There is no worsening of her PVCs, continue to have just some intermittent mild PVC burden but was asymptomatic there were no diagnostic EKG changes cardiac ischemia. Nuclear images pending to couple this for a full formal diagnostic. Patient discharged from this EKG portion in stable condition. Impression: Subjectively with mild shortness of breath, no chest pain, objectively negative EKG portion of this Lexiscan. Follow up suggested: Patient will get post stress imaging done and discharge to home. She will await final report from her primary regarding this stress test.
--- OUTSIDE RECORDS SUMMARY | 2024-11-28 11:52 | XMS_ITS | Clinical Summary ---
Author Organization [facility] Address [address] [place] [address] Care Team Providers Care Osteopathic Neurologist Name Role Phone Clinic, [facility] Pro vider Allergies No known [...] 70 12/31/2022 1:00 PM CDT Temperature 36.8 C (98.2 F) 12/31/2022 10:53 AM CDT Respiratory Rate 18 12/31/2022 12:12 PM CDT [...] (1 - 1-dose 75+ series) 2020 DTAP/TDAP/TD VACCINE (2 - Td or Tdap) 09/16/2021 09/17/2011 COVID-19 VACCINE (3 - 2023-2 5 season) 2024 04/26/2021, 07/24/2020 PHQ-2 (once per calendar year) 2024 INFLUENZA VACCINE (Season Ended) 2025 03/31/2022, 04/17/2021 DIABETES SCREENING 12/31/2025 12/31/2022, 12/31/2022 PNEUMOCOCCAL VACCINE 50+ YEARS Completed 04/06/2017, 09/24/2011 ZOSTER VACCINE Completed 04/09/2020, 01/26/2020, 10/12/2014 HPV VACCINE Aged Out No longer eligi ble based on patient's age to complete this topic MENINGITIS VACCINE Aged Out No longer eligible based on patient's age to complete [...] - BLOOD ORDERABLES Final Result [facility] [address] [facility] [address] [facility] (1st floor, no room number) [place] [address], [facility] [phone] from Last 3 Months or Most Recently Relevant to Health Maintenance Insurance MEDICARE [employer] Care Teams Osteopathic Neurologist Relationship Specialty Start Date End Date [facility] [address] [place] [address] PCP - General 12/31/22
--- OUTSIDE RECORDS SUMMARY | 2024-11-28 11:52 | XMS_ITS | Clinical Summary ---
Author Organization [employer] [facility] Address [address] [place] [address] Care Team Providers Care Barrel Cap Setter Name Role Phone Vaishali Arreaga MD Primary Care Provider [phone] Dany Holly Unavailable Allergies Active Allergy Reactions Criticality Noted Date Comments Hydrocodone Shortness Of Breath High 12/31/2020 Medications traMADoL (ULTRAM) 50 mg tabletIndications :Mitral valve insufficiency, unspecified etiology,Coronary artery disease involving [place] coronary artery of [place] heart without angina pectoris Take 0.5 Tablets (25 mg) by mouth at bedtime if needed for Pain. 0.1 Tablet 01/01/20 21 Active traZODone (DESYREL) 50 mg tabletIndications :Mitral valve insufficiency, unspecified etiology,Coronary artery disease involving [place] coronary artery of [place] heart without angina pectoris Take 1 Tablet (50 mg) by mouth at bedtime. 0.1 Tablet 01/01/20 21 Active atorvastatin (Lipitor) 40 mg tabletIndications :Mitral valve insufficiency, unspecified etiology,Coronary artery disease involving [place] coronary artery of [place] heart without angina pectoris,Mixed hyperlipidemia Take 1 Tablet (40 mg) by mouth at bedtime. 0.1 Tablet 01/01/20 21 Active enalapril-hydroch lorothiazide, 10-25 mg, (VASERETIC) 10-25 mg tabletIndications :HTN (hypertension),Mi tral valve insufficiency, unspecified etiology,Coronary artery disease involving [place] coronary artery of [place] heart without angina pectoris Take 1 Tablet by mouth once daily. 0.1 Tablet 01/01/20 21 Active aspirin (ECOTRIN) 81 mg enteric coated tabletIndications :Mitral valve insufficiency, unspecified etiology,Coronary artery disease involving [place] coronary artery of [place] heart without angina pectoris Take 1 Tablet (81 mg) by mouth once daily with a meal. 0.1 Tablet 01/01/20 21 Active escitalopram oxalate (LEXAPRO) 5 mg tablet Take 1 Tablet (5 mg) by mouth every morning. 0 10/14/19 22 Active insulin lispro protamine-lispro, 50-50, (HumaLOG Mix 50-50 KwikPen) 100 unit/mL (50-50) inpn penIndications:Ty pe 2 diabetes mellitus with other diabetic kidney complication, with long-term current use of insulin (HC) Inject subcutaneous. Takes 50 with breakfast, 36 with lunch and 50 with dinner. 0 10/29/19 23 Active Lantus Solostar U-100 Insulin 100 unit/mL (3 mL) pen Inject 15 units subcutaneous before bedtime. 12/02/19 23 Active fluticasone/umecl idin/vilanter (TRELEGY ELLIPTA INHL) Inhale by mouth. Active cyanocobalamin (VITAMIN B12) as quarter tablet Take 1,000 mcg by mouth once daily. Active famotidine (PEPCID) 20 mg tablet Take 20 mg by mouth once daily. Active levothyroxine (SYNTHROID) 137 mcg tablet Take 1 Tablet by mouth once daily. Active metoprolol succinate 50 mg sustained-release tabletIndications :HTN (hypertension) Take 1 Tablet (50 mg) by mouth two times daily. 180 Tablet 3 11/22/19 25 Active amLODIPine (Norvasc) 5 mg tabletIndications :HTN (hypertension) Take 1 Tablet (5 mg) by mouth once daily. 90 Tablet 4 02/20/20 23 025 Discontinu ed(*Med complete/R egimen complete/L evel of care change) empagliflozin (Jardiance) 10 mg tablet Take 10 mg by mouth once daily. 025 Discontinu ed(*Patien t states no longer taking) metoprolol succinate (TOPROL XL) 50 mg sustained-release tabletIndications :HTN (hypertension) Take 1 Tablet (50 mg) by mouth once daily. 90 Tablet 4 03/20/20 24 025 Discontinu ed(*Medica tion adjustment ) amoxicillin 500 mg capsuleIndication s:Acute UTI Take 1 Capsule (500 mg) by mouth three times daily. 21 Capsule 07/25/19 25 025 Discontinu ed(*Patien t states no longer taking) trimethoprim-sulf amethoxazole 160-800 mg tabIndications:Ac colin UTI Take 1 Tablet by mouth two times daily for 3 days. 6 Tablet 11/24/19 25 025 Active Problems Problem Noted Date Diagnosed Date Type 2 diabetes mellitus wit h other diabetic kidney complication, with long-term current use of insulin 02/02/2024 Proteinuria, unspecified 02/02/2024 Coronary artery disease invo lving [place] coronary artery of [place] heart without angina pectoris 12/06/2020 Mitral valve insufficiency 12/06/2020 Mixed hyperlipidemia 12/06/2020 HTN (hypertension) 12/06/2020 Encounters Date Type Department Care Team Description 11/21/2024 1:30 PM CDT Office Visit [facility] [address] [facility] [address] [place] [address] Emily Melgar CNS Follow Up (gen card est- review zio from August- [facility] patient PT states feeling ok. Had recent zio, wants to discuss results.She feels her heart skipping a beat occ. ) 11/21/2024 Orders Only [facility] [address] [facility] [address] [place] [address] Emily Melgar CNS <No scans attached> 11/21/2024 Telephone [facility] [address] [place] [phone] Emily Melgar CNS 11/20/2024 Travel 11/20/2024 Telephone [facility] [address] [place] [address] [address] Nils Manzano MD Surgery Scheduled 11/17/2024 11:30 AM CDT Procedure Only [facility] [address] [place] [address] Nils Manzano MD Follow Up 11/17/2024 Orders Only [facility] Staff, Other Clinical 1 scan: (1-Ord) [facility] 11/16/2024 Travel 10/03/2024 Lab Requisition [facility] [phone] Isabel Fowler MD from Last 3 Months Immunizations Immunization Administration Dates Next Due COVID-19 vaccine (Moderna 100mcg/0.5mL) PF MDV 04/26/2021,07/24/2020 Influenza, High-dose Quadrivalent Inactivated ,04/17/2021 [...] drink = 0.6 oz pur e alcohol) Financial Resource Strain Answer Date R ecorded Difficulty of Paying Living Expenses Not on file 06/03/2021 Difficulty of Paying Living Expenses Not on file 06/03/2021 Comments No Sex and Gender Information Value Date Recorded Sex Assigned at Not on file Legal Sex Female 1:57 PM CDT Gender Identity Not on file Sexual Orientation Not on file Obstetrics History Last Filed Vital Signs Vital Sign Reading Time Taken Comments Blood Pressure 146/74 11/21/2024 1:19 PM CDT Pulse 64 11/21/2024 1:19 PM CDT Temperature 36.7 C (98 F) 07/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 Respiratory Rate 18 11/17/2024 11:3 0 AM CDT Oxygen Saturation 90% 11/21/2024 1:19 PM CDT Inhaled Oxygen Concentration - - Weight 101.4 kg (223 lb 9.6 oz) 11/21/2024 1:19 PM CDT Height 170.2 cm (5' 7) 11/21/2024 1:19 PM CDT Body Mass Index 35.02 11/21/2024 1:19 PM CDT Plan of Treatment Upcoming Encounters Date Type Department Care Team (Latest Contact Info) Description 12/22/2024 6:59 AM CDT Hospital Encounter [address] [address] Nils Manzano MD [address] [place] [address] 12/22/2024 8:29 AM CDT - 12/22/2024 9:16 AM CDT Surgery [address] [address] Nils Manzano MD [address] [place], [place] [phone] cystoscopy, with transurethral resection of bladder tumor 02/06/2025 2:30 PM CDT Office Visit [facility] [address] [place], [place] [phone] [place] [address] [place], [place] [phone] Scheduled Procedures Name Priority Associated Diagnoses Date/Ti me CYSTOSCOPY RESECTION TRANSURETHRA BLADDER TUMOR Malignant neoplasm of urinary bladder, unspecified site (HC) 12/22/2024 8:29 AM CDT Health Maintenance Due Date Last Done Comments Depression screening for age 12+ 1957 Hepatitis C screening for age 18-79 12/03/1963 DEXA/DXA scan for age 65+ 2010 Medicare Wellness for age 65+ 2010 RSV vaccine for adults or (1 - 1-dose 75+ series) 2020 Tetanus booster 09/16/2021 09/17/2011 COVID-19 vaccine series (6 - Mixed Product risk season) 2024 04/17/2024, 05/03/2023, 03/31/2022, Additional history exists Influenza Vaccine (Season Ended) 2025 BMI (ht and wt on same day) for age 18+ 11/21/2025 11/21/2024, 03/20/2024 Tdap Completed 09/17/2011 Pneumococcal series for age 50+ Completed 04/06/2017, 09/24/2011 Zoster (shingles) series for age 50+ Completed 04/09/2020, 01/26/2020, 10/12/2014 Hepatitis B series for 19+ Aged Out N o longer eligible based on patient's age to complete this topic Goals Goal Patient Goal Type Associated Problems Recent Progress Patient-Stated? Author Autogenera susanna Goal Care Plan Autogenerated Problem No Christine Henry HUC Procedures Procedure Name Priority Date/Time Associated Diagnosis Comments EKG 12 LEAD Routine 11/21/2024 2:10 PM CDT Atherosclerosis of [place] coronary artery of [place] heart without angina pectoris PATH URINE CYTOLOGY Routine 11/17/2024 1 1:35 AM CDT Urothelial carcinoma (HC) Malignant neoplasm of urinary bladder, unspecified site (HC) URINALYSIS MICROSCOPIC Routine 11/17/2024 11:35 AM CDT Bladder tumor Malignant neoplasm of urinary bladder, unspecified site (HC) URINE CULTURE Routine 11/17/2024 11:35 AM CDT Urinary symptom or sign UA W/ SEDIMENT EXAM REFLEXED PER CRITERIA Routine 11/17/2024 11:35 AM CDT Bladder tumor Malignant neoplasm of urinary bladder, unspecified site (HC) SCAN CORRESP-DIAGNOSTICS 11/17/2024 9:15 AM CDT LAB TRACKING EVENT Routine 10/02/2024 12 :48 PM CDT PATH TISSUE EXAM Routine 10/02/2024 12:4 8 PM CDT from Last 3 Months Results * EKG 12 LEAD (11/21/2024 2:10 PM CDT) Interpretation Normal sinus rhythm Left anterior fascicular block Abnormal ECG No previous ECGs available Ventricular Rate 65 BPM Atrial Rate 65 BPM P-R Interval 146 ms QRS Duration 98 ms QT 436 ms QTc 453 ms P [place] 71 degrees R [place] -61 degrees T [place] 73 degrees 11/21/2024 2:10 PM CDT 11/23/2024 4:02 PM CDT us Emily Melgar SUPERVISOR FINAL EKG ORD Final Resu lt * PATH URINE CYTOLOGY (11/17/2024 11:35 AM CDT) Case Report Medical Cytology Report Case: [id number] Authorizing Provider: Nils Manzano MD Collected: 11/17/2024 1135 Ordering Location: [facility] Received: 11/17/[address] [place] [address] Pathologist: Lenny Hammer MD Specimen: Urine Void 11/20/2024 3:46 PM CDT [facility] [employer] [facility] Final Diagnosis A) URINE, VOIDED, CYTOLOGY: 1. Negative for high-grade urothelial carcinoma 11/20/2024 3:46 PM CDT [facility] ENTRNV LABORATORY at 1546 CDT Comment A) According to the Yaa System of reporting urinary cytology, the diagnosis of negative for high-grade urothelial carcinoma indicates the sample is composed of benign urothelial cells and that cells of high-grade urothelial carcinoma are absent. This does not exclude benign and low-grade urothelial neoplasia. 11/20/2024 3:46 PM CDT [facility] [employer] [facility] Clinical Information History of urothelial carcinoma. 11/20/2024 3:46 PM CDT [facility] ENTRAL LABORATORY Gross Description A) SOURCE: Urine, Voided The specimen consists of 5 cc of dark yellow hazy fluid from which the following is prepared: -1 Papanicolaou stained ThinPrep slide 11/20/2024 3:46 PM CDT [facility] ENTRAL LABORATORY Microscopic Description Specimen adequacy: Adequate for interpretation. All slides were reviewed. The microscopic appearance substantiates the diagnosis. 11/20/2024 3:46 PM CDT [facility] ENTRAL LABORATORY Additional Information Cytology is screened at [facility], Central Laboratory - [address], [place] [address] and [facility] - [address], [place] [address] and [facility] - [address] [place] [address] Interpreted at [facility], Central Laboratory - [address], [place] [address] 11/20/2024 3:46 PM CDT [facility]- ENTRAL LABORATORY Urine URINE SPECIMEN / Unknown Non-Blood / Unknown 11/17/2024 11:35 AM CDT 11/17/2024 12:21 PM CDT us Nils Manzano MD PATHOLOGY/CYTOLOGY Final Result [facility] [address] [place] [address], [place] * (ABNORMAL) URINALYSIS MICROSCOPIC (11/17/2024 11:35 AM CDT) RBC 0-2 0-2, None Seen /HPF 11/17/2024 12:44 PM CDT [facility] WBC 3-5 0-2, 3-5, None Seen /HPF 11/17/2024 12:44 PM CDT [facility] BACTERIA Many(A) None Seen, Rare, Few Bacteria/H PF 11/17/2024 12:44 PM CDT [facility] EPITHELIAL CELLS Moderate(A ) None Seen, Few Epi/HPF 11/17/2024 12:44 PM CDT [facility] YEAST Present(A) (none) 11/17/2024 12:44 PM CDT [facility] HYALINE CASTS 0-2 0-2, 3-5 /LPF 11/17/2024 12:44 PM CDT [facility] GRANULAR CASTS 0-2(A) (none) /LPF 11/17/2024 12:44 PM CDT [facility] Urine URINE SPECIMEN / Unknown Non-Blood / Unknown 11/17/2024 11:35 AM CDT 11/17/2024 12:21 PM CDT Nils Manzano MD URINE Final Res ult [facility] [address] [place] [address], [place] [phone] * (ABNORMAL) URINE CULTURE (11/17/2024 11:35 AM CDT) CULTURE RESULT(A) 11/18/2024 2:15 PM CDT [facility] CULTURE 50,000-100,000 CFU/mL Streptococcus agalactiae (Strep Group B) 11/18/2024 2:15 PM CDT [facility] NTRAL LABORATORY CULTURE <10,000 CFU/mL Multiple organisms probable contaminants 11/18/2024 2:15 PM CDT [facility] LAB[facility] Urine URINE SPECIMEN / Unknown Non-Blood / Unknown 11/17/2024 11:35 AM CDT 11/17/2024 12:21 PM CDT Nils Manzano MD MICROBIOLOGY Final Res ult [facility] [address] [place] [address], [place] * (ABNORMAL) UA W/ SEDIMENT EXAM REFLEXED PER CRITERIA (11/17/2024 11:35 AM CDT) COLOR Yellow Yellow Color 11/17/2024 12:35 PM CDT [facility] CLARITY Clear Clear Clarity 11/17/2024 12:35 PM CDT [facility] SPECIFIC GRAVITY,URINE >=1.030(A) 1.010, 1.015, 1.020, 1.025 11/17/2024 12:35 PM CDT [facility] PH,URINE 5.5 6.0, 7.0, 8.0, 5.5, 6.5, 7.5, 8.5 11/17/2024 12:35 PM CDT [facility] UROBILINOGEN, QUALITATIVE Normal Normal EU/dl 11/17/2024 12:35 PM CDT [facility] PROTEIN, URINE >=300(A) Negative mg/dL 11/17/2024 12:35 PM CDT [facility] GLUCOSE, URINE Negative Negative mg/dL 11/17/2024 12:35 PM CDT [facility] KETONES,URINE Trace(A) Negative mg/dL 11/17/2024 12:35 PM CDT [facility] BILIRUBIN,URI NE Negative Negative 11/17/2024 12:35 PM CDT [facility] OCCULT BLOOD,URINE Trace(A) Negative 11/17/2024 12:35 PM CDT [facility] NITRITE Negative Negative 11/17/2024 12:35 PM CDT [facility] LEUKOCYTE ESTERASE Negative Negative 11/17/2024 12:35 PM CDT [facility] Urine URINE SPECIMEN / Unknown Non-Blood / Unknown 11/17/2024 11:35 AM CDT 11/17/2024 12:21 PM CDT us Nils Manazno MD URINE Final Res ult [facility] [address] [place] [address], * SCAN CORRESP-DIAGNOSTICS (11/17/2024 9:15 AM CDT) Narrative 11/17/2024 9:15 AM CDT Ordered by an unspecified provider. us Other Clinical Staff OTHER Final Resul t * LAB TRACKING EVENT (10/02/2024 12:48 PM CDT) Other (Other) Client Collect / Unknown 10/02/2024 12:48 PM CDT 10/03/2024 7:37 AM CDT us Isabel Fowler MD LAB BILL ONLY Final Re sult [facility] [address] [place] [address], [place] * PATH TISSUE EXAM (10/02/2024 12:48 PM CDT) Case Report Pathology Report Case: [id number] Authorizing Provider: Isabel Fowler MD Collected: 10/02/2024 1248 Ordering Location: [facility] Received: 10/03/2024 1456 Pathologist: Alix Melton MD Specimens: A) - Ascending Colon Polyp B) - Splenic Flexure Polyp C) - Rectal Polyp 10/05/2024 11:07 AM CDT [facility] Final Diagnosis A) COLON, ASCENDING, POLYPECTOMY: 1. Tubular adenoma 2. Negative for high grade dysplasia 3. Per the colonoscopy report: a. Polyp size: 6 mm b. Resection: Complete c. Retrieval: Complete B) COLON, SPLENIC FLEXURE, POLYPECTOMY: 1. Tubular adenoma 2. Negative for high grade dysplasia 3. Per the colonoscopy report: a. Polyp size: 4 mm b. Resection: Complete c. Retrieval: Complete C) RECTUM, POLYPECTOMY: 1. Traditional serrated adenoma (see comment) 2. Negative for high grade dysplasia 3. Per the colonoscopy report: a. Polyp size: 13 mm b. Resection: Complete c. Retrieval: Complete 10/05/2024 11:07 AM CDT [facility] at 1107 CDT Comment C) Traditional serrated adenoma is an uncommon polyp in the serrated family of polyps that show dysplastic nuclear features throughout. The USMSTF guidelines recommend a 3-year interval for surveillance colonoscopy in patients with traditional serrated adenoma. This recommendation , however, is weak and based on very low-quality of evidence. 10/05/2024 11:07 AM CDT [facility] NTRAL LABORATORY Clinical Information Abnormal imaging of the GI tract 10/05/2024 11:07 AM CDT [facility] N[facility]AL LAB[facility]ORY Gross Description A) Received in formalin are 2 palumbo mucosal fragments ranging from 5 mm to 7 mm in greatest dimension, which are entirely submitted in one cassette. It is labeled with the patient's name and designated ascending colon polyp. B) Received in formalin is a palumbo mucosal fragment measuring 2 mm in greatest dimension, which is entirely submitted in one cassette. It is labeled with the patient's name and designated splenic flexure polyp. C) Received in formalin are 4 palumbo mucosal fragments ranging from 4 mm to 8 mm in greatest dimension, which are entirely submitted in one cassette. It is labeled with the patient's name and designated rectum polyp. Stephanie Epps 10/03/2024 4:12 PM 10/05/2024 11:07 AM CDT [facility] N[facility]AL LAB[facility]ATORY Microscopic Description The final diagnosis is based on microscopic examination of appropriate sections of all specimens. 10/05/2024 11:07 AM CDT [facility] N[facility]AL LAB[facility]ORY Additional Information Interpreted at [facility], Central Laboratory - [address] [address] 10/05/2024 11:07 AM CDT [facility] NTRAL LABORATORY Other (Ascending Colon Polyp) 10/02/2024 12:48 PM CDT 10/03/2024 2:56 PM CDT Specimen (specimen) (Splenic Flexure Polyp) 10/02/2024 12:48 PM CDT 10/03/2024 2:56 PM CDT Specimen (specimen) (Rectal Polyp ) 10/02/2024 12:48 PM CDT 10/03/2024 2:56 PM CDT Isabel Fowler MD PATHOLOGY/CYTOLOGY Final Result [facility]CEN[facility]AL LABORATORY [address] [place] [address], [place] from Last 3 Months Additional Health Concerns Active Problems Noted Date Diagnosed Date Autogenerated Problem 11/20/2024 Insurance [facility] [id number] [place] [address] MEDICARE PB ONLY MEDICARE PART A HB ONLY MEDICARE PART B HB ONLY [facility] [place] [id number] Advance Directives * Full Code (Latest Code Status on File) Date Activated Date Inactivated Comments 07/28/2024 7:15 AM 07/28/2024 3:25 PM Should be di scussed pre operatively with anesthesia or surgeon Question Answer Comments Code Status Discussion: Not Discussed * Full Code Date Activated Date Inactivated Comments 10/26/2023 12:29 PM 10/26/2023 5:58 PM Should be d iscussed pre operatively with anesthesia or surgeon Question Answer Comments Code Status Discussion: Not Discussed Care Teams Barrel Cap Setter Relationship Specialty Start Date End Date Vaishali Arreaga MD [address] [place] [address] PCP - General Emergency Medicine 12/05/20 Dany Holly [employer]BS [address] [place] [address] Nephrology 02/02/24
--- OUTSIDE RECORDS SUMMARY | 2024-11-28 11:52 | XMS_ITS | CCD ---
Author Name Interface, [id number] lity Address [address] [place] [address] [facility] Address [address] [place] [address] Reason for Visit Diagnostic Results Social History
--- OUTSIDE RECORDS SUMMARY | 2024-11-28 11:52 | XMS_ITS | Clinical Summary ---
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 Medications Administered No information available. Allergies, Adverse Reactions, Alerts No information available. Results Date Name Value Unit Range Flag Description Internal Other: Authorizatio n - OBS [email or web address] Yes Authoriza tion: Release of Information - Authorize [facility] - Payment and Healthcare Operations ROIAUTHOTHER Yes Authoriz ation: Release of Information - Authorize Others/Insurance - Payment and Healthcare Operations HIECONSENT Yes Consent To Release information to the Health Information Exchange (HIE) [email or web address] Yes Authorizat ion: Authorization for [facility] to leave messages, voicemail, send text messages, send emails AUTHRELHCARE Yes Authoriz ation: Release/Retrieval of Information to/from Healthcare Facilities, Pharmacy Benefit Payers and Providers AUTHPRIVPRAC Yes Authoriz ation: Notice of privacy practices AUTHBENEFIT Yes Authoriza tion: Assignment of Benefits and Payment Agreement Plan of Care No information available. Procedures Code Procedure Name Date Entry Date CPT-74149 Nerve Conduction 13 or more studies 04/01 CPT-64902 EMG with NCS (5+ muscles) - 2 limbs 04/01 Vital Signs No information available. Immunizations No information available. Advance Directives No information available.
--- OUTSIDE RECORDS SUMMARY | 2024-11-28 11:52 | XMS_ITS | Data Portability ---
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 Not available 01/18/2024 16:27:37 Plan of Treatment Reminders Order Date Submit Date Provider Last Modified By Organization Details Last Modified Time Details Appointments None recorded. Lab None recorded. Referral None recorded. Procedures None recorded. Surgeries cystoscopy with bladder biopsy (SURG) 2023 024 kamini Not available 08:22:[address], urogram 2023 024 aklyla [facility], [address], [place], [address], 11:01:23 Medication Orders None recorded. Patient TargetsNo targets recorded. 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 I recommend bladder biopsy and fulguration. We discussed risks and benefits and she would like to proceed. 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 She will return in 3 months for her next surveillance cystoscopy with CT urogram prior. [facility] Not available 01/18/2024 16:26:57 Reason for Referral None Reported. Results Created Date Observation Date Name Description Value Unit Range Abnormal Flag Note LastModifiedBy Organization Detail LastModifiedTime 06/29/1906/13/2024 CT, abdom en + pelvi s, w/wo contr ast No observ ation record ed. [email or web address] Not Available 2024 14:06:10 Result Notes None recorded. Problems Name Problem SNOMED Code Status Onset Date Resolution Date Notes Provider Name and Address Organization Details Recorded Time Coronary arterioscleros is 43827679 Active 2023 [facility] null, [facility] 4 16:17:15 Hyperlipidemia 79418048 Active 2023 [facility] null, [facility] 4 16:17:23 Hypertensive disorder 45630911 Active 2023 [facility] null, [facility] 4 16:17:28 Mitral valve regurgitation 85012697 Active 2023 [facility] null, [facility] 4 16:17:36 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 Procedures Surgical History Date Name Laterality Status Provider Name and Address Organization Details Recorded Time 024 Cystoscopy- female completed Nils Manzano MD [address], [address], [facility] 01/18/2024 16:27:11 024 Cystoscopy- female completed Nils Manzano MD [address] [place] [address] [address], [place], [address], [facility] 10/05/2023 12:44:30 024 Past Data Reviewed completed Nils Manzano MD [address] [place] [address] [address], [place], [address], [facility] 10/05/2023 12:37:16 022 Diagnostic colonoscopy completed Not Available Health Note 10/04/2023 20:14:31 Cystourethroscopy completed Not Available Health Note 10/04/2023 20:14:31 delivery completed Not Available Health Note 10/04/2023 20:14:31 Insert epicard eltrd open completed Not Available Health Note 10/04/2023 20:14:31 Hernia repair w/mesh completed Not Available Health Note 10/04/2023 20:14:31 Total hysterectomy completed Not Available Health Note 10/04/2023 20:14:31 Laparoscopy remove adnexa completed Not Available Health Note 10/04/2023 20:14:31 Imaging Results None recorded. Procedure Notes None recorded. Medical Equipment None Reported. Allergies Allergen ID Allergen Name Allergen Category Reaction Reaction Severity Criticality Documentation Date Start Date Code Code System Note Provider Name and Address Organization Details Recorded Time 549918 hydrocodo ne Not available Not available Not available Not available 09/13/2023 5489 RxNorm Marek Coleman [facility] 16:17:08 Medications Name Sig Start Date Stop Date Status Note LastModified by Organization Details LastModified Time atorvasta tin 40 mg tablet TAKE ONE TABLET BY MOUTH EVERY DAY active Not Available Not Available No t Available levothyro xine 137 mcg tablet TAKE ONE TABLET BY MOUTH EVERY DAY active Not Available Not Available No t Available doxycycli ne hyclate 100 mg capsule TAKE ONE CAPSULE BY MOUTH TWICE A DAY FOR 5 DAYS 10/04 completed HN: Patient reports no longer taking Not Available Not Available Not Available Acetamino phen Extra Strength 500 mg tablet 500mg 1/day active Not Available Not Available No t Available enalapril maleate 10 mg tablet TAKE ONE TABLET BY MOUTH EVERY DAY active Not Available Not Available No t Available trazodone 50 mg tablet TAKE ONE TABLET BY MOUTH AT BEDTIME NEEDED FOR INSOMNIA active Not Available Not Available No t Available azithromy derek 250 mg tablet TAKE TWO TABLETS BY MOUTH ONE DOSE ON THE FIRST DAY, THEN TAKE ONE DAILY THEREAFT ER. 10/04 completed HN: Patient reports no longer taking Not Available Not Available Not Available metoprolo l succinate ER 50 mg tablet,ex tended release 24 hr TAKE ONE-HALF (25 MG) TABLET BY MOUTH DAILY active Not Available Not Available No t Available prednison e 20 mg tablet TAKE TWO TABLETS BY MOUTH EVERY DAY 10/04 completed HN: Patient reports no longer taking Not Available Not Available Not Available clopidogr el 75 mg tablet TAKE ONE TABLET BY MOUTH EVERY DAY 10/04 completed HN: Patient reports no longer taking Not Available Not Available Not Available amlodipin e 5 mg tablet TAKE ONE TABLET BY MOUTH EVERY DAY active Not Available Not Available No t Available omeprazol e 40 mg capsule,d elayed release TAKE ONE CAPSULE BY MOUTH EVERY DAY 10/04 completed HN: Patient reports no longer taking Not Available Not Available Not Available tramadol 50 mg tablet TAKE ONE-HALF TO ONE TABLET BY MOUTH EVERY DAY NEEDED FOR PAIN active Not Available Not Available No t Available amoxicill in 500 mg tablet TAKE 4 TABLETS BY MOUTH ONE HOUR PRIOR TO DENTAL WORK 10/04 completed HN: Patient reports no longer taking Not Available Not Available Not Available enalapril 10 mg-hydroc hlorothia zide 25 mg tablet TAKE ONE TABLET BY MOUTH EVERY DAY active Not Available Not Available No t Available amoxicill in 875 mg tablet TAKE ONE TABLET BY MOUTH TWICE A DAY FOR 7 DAYS 10/04 completed HN: Patient reports no longer taking Not Available Not Available Not Available famotidin e 20 mg tablet TAKE ONE TABLET BY MOUTH EVERY DAY active Not Available Not Available No t Available hydrochlo rothiazid e 25 mg tablet TAKE ONE TABLET BY MOUTH EVERY DAY 01/17 completed HN: Patient reports no longer taking Not Available Not Available Not Available metoprolo l succinate ER 25 mg tablet,ex tended release 24 hr 01/17 completed HN: Patient reports no longer taking Not Available Not Available Not Available albuterol sulfate HFA 90 mcg/actua tion aerosol inhaler INHALE 1 TO 2 PUFFS EVERY 4 TO 6 HOURS NEEDED FOR FOR SHORTNES S OF BREATH OR WHEEZING 01/17 completed HN: Patient reports no longer taking Not Available Not Available Not Available diazepam 5 mg tablet TAKE 1 TABLET BY MOUTH 30 MINUTES PRIOR TO MRI, MAY REPEAT ONCE 10/04 completed HN: Patient reports no longer taking Not Available Not Available Not Available verapamil ER 240 mg 24 hr capsule,e xtended release TAKE 1 CAPSULE BY MOUTH EVERY MORNING. 10/04 completed HN: Patient reports no longer taking Not Available Not Available Not Available escitalop suresh 5 mg tablet TAKE ONE TABLET BY MOUTH EVERY DAY active Not Available Not Available No t Available Flovent HFA 220 mcg/actua tion aerosol inhaler INHALE ONE PUFF BY MOUTH TWICE A DAY 10/04 completed HN: Patient reports no longer taking Not Available Not Available Not Available Lantus Solostar U-100 Insulin 100 unit/mL (3 mL) subcutane ous pen INJECT 15 UNITS SUBCUTAN EOUSLY ONCE DAILY active Not Available Not Available No t Available Humalog Mix 50-50 KwikPen U-100 Insulin 100 unit/mL subcutane ous pen INJECT 50 UNITS UNDER THE SKIN BEFORE BREAKFAS T, 36 UNITS BEFORE LUNCH, AND 50 UNITS BEFORE DINNER active Not Available Not Available No t Available B12 1000 1/day active Not Available Not Available No t Available OneTouch Verio test strips USE TO TEST 4 TIMES DAILY. active Not Available Not Available No t Available Jardiance 10 mg tablet 01/17 completed HN: Patient reports no longer taking Not Available Not Available Not Available TechLITE Pen Needle 31 gauge x 3/16 USE TO ADMINIST ER INSULIN FOUR TIMES DAILY active Not Available Not Available No t Available OneTouch Delica Plus Lancet 33 gauge USE TO TEST THREE TIMES DAILY active Not Available Not Available No t Available Vitals Date Recorded Body mass index (BMI) Body weight Body height Provider Name and Address Organization Details Last Updated DateTime 10/05/2023 35.6 kg/m2 63812.10380 98309 g 165.1 cm Not Available Health Note 10/05/2023 07:57:34 Date Recorded Body height Provider Name an d Address Organization Details Last Updated DateTime 01/18/2024 165.1 cm Marek Coleman [facility] 16:09:47 Social History Question Answer Notes LastModified by [employer] Details LastModified Time Tobacco Smoking Status Former Smoker Not Available Health Note 10/04/2023 20:14:31 What Is Your Level Of Caffeine Consumption? None [email or web address] Information not available 10/04/2023 How Much Tobacco Do You Chew? None [email or web address] Information not available 10/04/2023 When Did You Quit Smoking? 11-15yearssi ncelastcigar ette Information not available 10/05/2023 Number Of Pregnancies 2 [email or web address] Information not available 10/04/2023 Number Of Vaginal Deliveries 0 [email or web address] Information not available 10/04/2023 Number Of Caesarean Sections 2 [email or web address] Information not available 10/04/2023 Could You Be ? No [email or web address] Information not available 10/04/2023 What Was The Date Of Your Most Recent Tobacco Screening? 01/18/2024 Information not available 01/18/2024 What Is Your Relationship Status? [email or web address] Information not available 10/04/2023 Are You Sexually Active? No [email or web address] Information not available 10/04/2023 How Much Tobacco Do You Smoke? 1 PPD Information not available 10/05/2023 Has Tobacco Cessation Counseling Been Provided? No Information not available 10/05/2023 How Many Years Have You Smoked Tobacco? 40 [email or web address] Information not available 10/04/2023 How Many Days In The Past Year Have You Consumed 4 Or More Drinks? 0 [email or web address] Information no t available 10/04/2023 Sex: Unknown Functional Status Question Answer Note LastModified by [employer] Details LastModified Time Do you use any illicit or recreational drugs? No [email or web address] Information not available 10/04/2023 Do you or have you ever used any other forms of tobacco or nicotine? No Information not available 10/05/2023 What is your level of alcohol consumption? None Information not available 10/05/2023 Do you or have you ever used smokeless tobacco? Never used smokeless tobacco [facility]-685 Information not available 10/04/2023 Do you or have you ever used e-cigarettes or vape? Never used electronic cigarettes [facility]-685 Information not available 10/04/2023 Mental Status None recorded. Family History Relationship Description Onset Age of this Age Resolved Age Notes LastModified by Organization Details LastModified Time Mother Family history of breast cancer [email or web address] Not available 2023 20:14:29 Father Family history of cardiac disorder [email or web address] Not available 2023 20:14:29 Medical History Condition Response Sexually Transmitted Infection N Diabetes Y Bleeding Disorder N High Blood Pressure Y Kidney Stones N Cancer Y Lung Disease N Depression Y High Cholesterol N GERD/Acid Reflux Y Heart Disease Y Gynecological History Statement/Question Response If Post Menopausal, Age at Menopause 50 Hormone Therapy N Sexually Active? N Obstetrics History GPAL:G 0 P 0 0 0 0 Immunizations Vaccine Type Date Status Note Provider Nam e and Address Organization Details Recorded Time influenza, unspecified formulation 3 completed Marek Meath null, [facility] 10/05/2023 12:10:49 SARS-COV-2 (COVID-19) vaccine, UNSPECIFIED 3 [facility] 12:10:48 zoster live 9 completed Not Available Health Note 10/04/2023 20:14:35 pneumococcal, unspecified formulation 1 completed Not Available Health Note 10/04/2023 20:14:35 zoster recombinant 0 completed Marek Meath null, [facility] 10/05/2023 12:10:48 zoster recombinant 0 completed Marek Meath null, [facility] 10/05/2023 12:10:48 Influenza, high-dose, quadrivalent, PF 2 completed Marek Meath null, [facility] 10/05/2023 12:10:48 Influenza, high-dose, quadrivalent, PF 1 completed Marek Meath null, [facility] 10/05/2023 12:10:48 Influenza, adjuvanted, quadrivalent, PF 3 completed Marek Meath null, [facility] 10/05/2023 12:10:48 COVID-19, mRNA, LNP-S, PF, 100 mcg/0.5mL dose or 50 mcg/0.25mL dose 1 completed Marek Meath null, [facility] 10/05/2023 12:10:48 COVID-19, mRNA, LNP-S, PF, 100 mcg/0.5mL dose or 50 mcg/0.25mL dose 1 completed Marek Meath null, [facility] 10/05/2023 12:10:48 COVID-19, mRNA, LNP-S, bivalent, PF, 30 mcg/0.3 mL dose 2 completed Marek Meath null, [facility] 10/05/2023 12:10:49 COVID-19, mRNA, LNP-S, PF, bridger-sucrose, 30 mcg/0.3 mL 3 completed Marek Meath null, [facility] 10/05/2023 12:10:49 pneumococcal polysaccharide PPV23 2 completed Marek Meath null, [facility] 10/05/2023 12:10:49 influenza, unspecified formulation 0 completed Marek Meath null, [facility] 10/05/2023 12:10:49 Tdap 4 completed Marek Meath null, [facility] 10/05/2023 12:10:49 Tdap 2 completed Marek Meath null, [facility] 10/05/2023 12:10:49 Pneumococcal conjugate PCV 13 7 completed Marek Meath null, [facility] 10/05/2023 12:10:49 zoster live 5 completed Marek Meath null, [facility] 10/05/2023 12:10:49 Past Encounters Encounter ID Performer Location Encounter Start Date Encounter Closed Date Diagnosis/Indication Diagnosis SNOMED-CT Code Diagnosis ICD10 Code Diagnosis Note [id number] Nils Manzano MD [facility] [address] [place] [address] 10/05/2023 07:57:31 10/05/2023 14:34:40 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 2472846887 C68.9 Malignant neoplasm of urinary bladder 854320145 C67.9 [id number] Nils Manzano MD [facility] [address] [place] [address] 01/18/2024 08:05:21 01/18/2024 16:46:50 Malignant neoplasm of urinary bladder 121561075 C67.9 Transition al cell carcinoma of upper urinary tract 1629608036 C68.9 Health Concerns Section Related Observation LastModified by Organization Detai ls LastModified Time None Recorded Concern Status LastModified by Organization Details LastModified Time None Recorded Advance Directives Directive None Recorded Payers Insurance Date Sequence Insurance Name Policy Number Policy Bassett Covered Member ID Bassett Member ID Guarantor Name 01/27/2024 2 [employer] (MEDICARE SUPPLEMENT) Jacinda Epps [id number] Jacinda Epps 01/17/2024 2 [employer] (MEDICARE SUPPLEMENT) Jacinda Epps [id number] Jacinda Epps 01/17/2024 1 [place] [employer] [facility] Jacinda Epps [id number] Jacinda Epps Notes Date Note Type Note Provider Name and Address Organization Details Recorded Time 10/05/2023 text/html This is a 77 yea r old female here for the evaluation and management of upper tract urothelial cell carcinoma. She is status post robotic-assisted laparoscopic right nephroureterectomy on 09/04/2022.Pathology: pTaNxMx, high grade urothelial cell carcinoma.She has been free of recurrence since that time.Her most recent CT in May showed no evidence of recurrence.Her cystoscopic surveillance has been negative since that time as well.She denies flank pain, gross hematuria, or unexplained weight loss. Nils Manzano MD [address] [place] [address],[address], [place], [address], [facility] 10/05/2023 12:46:15 01/18/2024 text/html This is a 78 yea r old female here for the ongoing management of upper tract urothelial cell carcinoma and low risk non-muscle invasive bladder cancer. She is status post robotic-assisted laparoscopic right nephroureterectomy on 09/04/2022.Pathology: pTaNxMx, high grade urothelial cell carcinoma. She underwent a surveillance cystoscopy 10/05/2023 which revealed a local recurrence on the right lateral wall. She is status post cystoscopy, bladder biopsy, and fulguration on 10/26/2023.Pathology: [id number], low grade urothelial cell carcinoma. She is here today for surveillance cystoscopy. Nils Manzano MD [address] [place] [address],[address], [place], [address], [facility] 01/18/2024 16:27:47 OBGyn Episode No OBEpisode recorded.
--- OUTSIDE RECORDS SUMMARY | 2024-11-28 11:52 | XMS_ITS | Clinical Summary ---
Author Organization [facility] Address [address] [place] [address] Phone Care Team Providers Care Breaking Machine Operator Name Role Phone Abdoulaye Huffman MD Conditions or Problems Problem Name Problem Code Onset Date Status Entry Date Provider Comment Standard Description Annotate Radicular pain 43223017 (SNOMED CT) Active Abdoulaye Huffman MD Radicular pain Neck pain 40387581 (SNOMED CT) Active Abdoulaye Huffman MD Neck pain Other lesions of median nerve, bilateral upper limbs 208191242 (SNOMED CT) Active Abdoulaye Huffman MD Lesion [...] Procedures Code Procedure Name Date Entry Date CPT-40815 Nerve Conduction 13 or more studies 04/01 CPT-63497 EMG with NCS (5+ muscles) - 2 limbs 04/01 Vital Signs No information available. Immunizations No information available. Advance Directives No information available.
--- OUTSIDE RECORDS SUMMARY | 2024-11-28 11:52 | XMS_ITS | CCD ---
Author Name Interface, [id number] lity Address [address] [place] [address] [facility] Address [address] [place] [address] Reason for Visit Diagnostic Results Social History
--- OUTSIDE RECORDS SUMMARY | 2024-11-28 11:52 | XMS_ITS | Patient Health Record ---
Author Organization [facility] Address [address] [place], [place] [address] Care Team Providers Care Oracle Database Analyst Name Role Phone ESTEVAN KOVACS DO Primary Care Provider Unavaila ble Allergies No Known Allergies Reason For Referral No Information Medications Medication SIG (Take, Route, Frequency, Duration) Notes Start Date End Date Status Omeprazole 40 MG TAKE 1 CAPSULE DAILY . Oral Daily for 0 TAKE 1 CAPSULE DAILY. 04/25/2014 Active Metoprolol Tartrate 25 MG TAKE 1 TABLET BEDTIME Oral Bedtime for 0 TAKE 1 TABLET BEDTIME 02/26/2017 Active Levoxyl 150 MCG TAKE 1 TABLET DAILY. Oral Daily for 0 TAKE 1 TABLET DAILY. 04/25/2014 Active Verapamil HCl Active Levothyroxine Sodium Active HumaLOG KwikPen 100 UNIT/ML USE DIRECTED. Subcutaneous for 0 USE DIRECTED. 02/26/2017 Active Atorvastatin Calcium Active Immunizations Vaccine Route Administration Date Status Comme nts Influenza (Whole) Unknown 04/25/2014 Administered Admin istered on:25 Apr 2014 PNEUMOCOCCAL IMMUNIZATION Unknown 04/25/2014 Administered Administered on: 25 Apr 2014 Social History Tobacco Use: Social History Observation Description Date Details (start date - stop date) Never Smoker NA - NA Tobacco Use/Smoking Question Answer Notes Are you a nonsmoker Problems Problem Type SNOMED Code ICD Code Onset Dates Problem Status W/U Status Risk Notes Problem 871690098 History of kidney cancer (Z85.528) Active confirmed Plan Of Treatment Pending Test Test Name Order Date MM DIGITAL BILATERAL DIAGNOSTIC MAMMOGRA M 09/28/2018 MM CAD DIGITAL UNILATERAL DIAGNOSTIC LANDRY MOGRAM 08/03/2017 US Extremity Non Vascular Limited 2019 US BREAST LTD TARGET AREA UNILAT 021 US BREAST LTD TARGET AREA UNILAT 018 Insurance Providers Payer Name Payer Address Payer Phone Subscriber Number Group Number Insured Name Patient Relationship to Insured Coverage Start Date Coverage End Date S MEDICARE PART B [address] [place] [address] [id number] ELIZABETH EPPS Self - patient is the insured 1 [employer] [employer] [address] [place] [address] [phone] [id number] ELIZABETH EPPS Self - patient is the insured 4 [employer] MEDICARE PART B [address] [place] [address] [id number] ELIZABETH EPPS Self - patient is the insured 1 Medical (General) History Medical History History ICD Code Hypothyroidism diabetes mellitus cancer kidney Surgical History Surgery Date(Month/Year) hysterectomy, total with bilateral salpi calderon-oophorectomy (BSO) thyroidectomy, complete nasal polypectomy back surgery section
--- OUTSIDE RECORDS SUMMARY | 2024-11-28 11:53 | XMS_ITS | CCD ---
Author Name Interface, [id number] lity Address [address] [place] [address] [facility] Address [address] [place] [address] Reason for Visit Diagnostic Results Social History
--- OUTSIDE RECORDS SUMMARY | 2024-11-28 11:53 | XMS_ITS | CCD ---
Author Name Interface, [id number] lity Address [address] [place] [address] [address] [facility] Address [address] [place] [address] Reason for Visit Diagnostic Results Date Type Test Units Lower Limit Upper Limit Result Flag Comments Status Ordered By Specimen Source Lab Address 02/01 [facility] other lab See attache serrano Social History Date Name Value Sex Female
--- OUTSIDE RECORDS SUMMARY | 2024-11-28 12:04 | XMS_ITS | CCD ---
Author Name Interface, [id number] lity Address [address] [place] [address] [facility] Address [address] [place] [address] Reason for Visit Diagnostic Results Date Type Test Units Lower Limit Upper Limit Result Flag Comments Status Ordered By Specimen Source Lab Address 02/01 [facility] other lab See attache serrano Social History Date Name Value Sex Female
--- OUTSIDE RECORDS SUMMARY | 2024-11-28 12:04 | XMS_ITS | CCD ---
Author Name Interface, [id number] lity Address [address] [place] [address] [facility] Address [address] [place] [address] Reason for Visit Diagnostic Results Social History
== END 2024-11-28 11:16 | disposition home or self-care (01) ==
LOC: STRESS 08:47
PROVIDERS: PCP Physician Assistant Medical; Visit Provider Nurse Practitioner
DX: I25.10 Atherosclerotic heart disease of native coronary artery without angina pectoris (principal); R06.09 Other forms of dyspnea
CPT/HCPCS: 78452; 93016; 93017; A9500; J2785

== ENCOUNTER 2024-12-11 10:41 | Outpatient (CLI) | payer MEDICARE, OTHER, SELFPAY | END 2024-12-11 10:42 | disposition home or self-care (01) | LOC: NFLDREF 12-14 04:12 | PROVIDERS: PCP Physician Assistant Medical; Referring Provider Physician Assistant Medical; Visit Provider Physician Assistant Medical | DX: E11.22 Type 2 diabetes mellitus with diabetic chronic kidney disease (principal); N18.9 Chronic kidney disease, unspecified; N39.0 Urinary tract infection, site not specified; D64.9 Anemia, unspecified; Z01.818 Encounter for other preprocedural examination | CPT/HCPCS: 83520; 87086; 87186 ==

== ENCOUNTER 2024-12-18 13:54 | Outpatient (CLI) | payer MEDICARE, OTHER, SELFPAY | END 2024-12-18 13:55 | disposition home or self-care (01) | LOC: NFLDREF 12-20 14:04 | PROVIDERS: PCP Physician Assistant Medical; Referring Provider Physician Assistant Medical; Visit Provider Physician Assistant Medical | DX: N39.0 Urinary tract infection, site not specified (principal) | CPT/HCPCS: 87086 ==

== ENCOUNTER 2025-03-30 17:31 | Outpatient (CLI) | payer MEDICARE, OTHER, SELFPAY | END 2025-03-30 17:32 | disposition home or self-care (01) | PROVIDERS: PCP Physician Assistant Medical; Visit Provider Physician Assistant | DX: R10.13 Epigastric pain (principal) | CPT/HCPCS: 80076; 83690 ==